=== PATIENT | female | born 2000 | race Caucasian/White ===

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

== ENCOUNTER 2018-03-25 07:18 | Emergency (ER) | payer SELFPAY ==
[2018-03-25] MEDS ORDERED: Diphtheria,Pertussis(Acell),Tetanus Vaccine 0.5 ML Syringe IM ONE (07:44)
[2018-03-25] MEDS ORDERED: Sodium Chloride 0.9% 2.5 ML Syringe FLUSH PRN (07:48)
[2018-03-25] MEDS ORDERED: Sodium Chloride 0.9% 10 ML Syringe FLUSH PRN (07:48)
[2018-03-25] MEDS ORDERED: Ampicillin/Sulbactam Na 3 GM in Sodium Chloride 0.9% 100 ML IV ONE (07:48)
--- NOTE | 2018-03-25 08:52 | EDM.PDOC ---
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: Bite:Animal, Insect Stated Complaint: CAT SCRATCH AND BITE ON RIGHT FOREARM Time Seen by Provider: 03/25/18 07:30 Source of Information: Reports: Patient History Limitations: Reports: No Limitations - History of Present Illness INITIAL COMMENTS - FREE TEXT/NARRATIVE: History of present illness: []Patient was bitten and scratched by her cat last night and awoke with redness and swelling to her right forearm. She denies any fevers or chills and states that her cat is up-to-date with vaccines. Review of systems: As per history of present illness and below otherwise all systems reviewed and negative. Past medical history: As per history of present illness and as reviewed below otherwise noncontributory. Surgical history: As per history of present illness and as reviewed below otherwise noncontributory. Social history: No reported history of drug or alcohol abuse. Family history: As per history of present illness and as reviewed below otherwise noncontributory. Physical exam: General: Well developed, well nourished in NAD HEENT: Atraumatic, normocephalic, pupils reactive, negative for conjunctival pallor or scleral icterus, mucous membranes moist, throat clear, neck supple, nontender, trachea midline. Lungs: Clear to auscultation, breath sounds equal bilaterally, chest nontender. Heart: S1S2, regular, negative for clicks, rubs, or JVD. Abdomen: Soft, nondistended, nontender. Negative for masses or hepatosplenomegaly. Negative for costovertebral tenderness. Pelvis: Stable nontender. Genitourinary: Deferred. Rectal: Deferred. Extremities: Multiple scratches and dorsal part of her distal forearm with erythema of the distal dorsal forearm, negative for cords or calf pain. Neurovascular unremarkable. Neuro: Awake, alert, oriented. Cranial nerves II through XII unremarkable. Cerebellum unremarkable. Motor and sensory unremarkable throughout. Exam nonfocal. Diagnostics: [] Therapeutics: []Unasyn IV Impression: []Cat scratch/bite with cellulitis of the right forearm Plan: []Augmentin twice a day for 10 days Definitive disposition and diagnosis as appropriate pending reevaluation and review of above. Right Hand Pain Score (Numeric/FACES): 6 - Related Data Allergies Allergy/AdvReac Type Severity Reaction Status Date / Time No Known Allergies Allergy Verified 03/25/18 07:27 Home Meds: Home Meds Amoxicillin/Clavulanate K [Augmentin 875-125 MG] 1 tab PO BID #20 tablet [Rx] Vits #93/Iron Fum/FA [ Formula Tablet] 1 each PO DAILY [History] Past Medical History - Past Health History Medical/Surgical History: Denies Medical/Surgical History HEENT History: Reports: None Cardiovascular History: Reports: None Respiratory History: Reports: None Gastrointestinal History: Reports: None Genitourinary History: Reports: None 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: Reports: 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 Musculoskeletal History: Reports: None Neurological History: Reports: None Endocrine/Metabolic History: Reports: None Hematologic History: Reports: None Immunologic History: Reports: None Oncologic (Cancer) History: Reports: None Dermatologic History: Reports: None - Infectious Disease History Infectious Disease History: Reports: None - Past Surgical History Head Surgeries/Procedures: Reports: None HEENT Surgical History: Reports: None Cardiovascular Surgical History: Reports: None Respiratory Surgical History: Reports: None GI Surgical History: Reports: None Female Surgical History: Reports: None Neurological Surgical History: Reports: None Musculoskeletal Surgical History: Reports: None Social & Family History - Family History Family Medical History: Noncontributory - Tobacco Use Smoking Status *Q: Never Smoker Second Hand Smoke Exposure: No - Caffeine Use Caffeine Use: Reports: Other - Recreational Drug Use Recreational Drug Use: No ED ROS GENERAL - Review of Systems Review Of Systems: See Below (See history of present illness) ED EXAM, ANIMAL BITE - Physical Exam Exam: See Below (See history of present illness) Course - Vital Signs Last Recorded V/S: Last Vital Signs Temp 98.1 F 03/25/18 07:28 Pulse 83 03/25/18 07:28 Resp 18 03/25/18 07:28 BP 94/53 L 03/25/18 07:28 Pulse Ox 98 03/25/18 07:28 - Orders/Labs/Meds Orders: Active Orders 24 hr Category Date Time Status Vaccines to be Administered [RC] PER UNIT ROUTINE Care 03/25/18 07:44 Active Sodium Chloride 0.9% [Saline Flush] Med 03/25/18 07:48 Active 10 ml FLUSH ASDIRECTED PRN Sodium Chloride 0.9% [Saline Flush] Med 03/25/18 07:48 Active 2.5 ml FLUSH ASDIRECTED PRN Saline Lock Insert [OM.PC] Stat Oth 03/25/18 07:48 Ordered Medication Orders Sodium Chloride (Saline Flush) 10 ml FLUSH ASDIRECTED PRN PRN Reason: Keep Vein Open Last Admin: 03/25/18 08:02 Dose: 10 ml Sodium Chloride (Saline Flush) 2.5 ml FLUSH ASDIRECTED PRN PRN Reason: Keep Vein Open Last Admin: 03/25/18 08:02 Dose: 2.5 ml Meds: Medications Generic Name Dose Route Start Last Admin Trade Name Freq PRN Reason Stop Dose Admin Sodium Chloride 10 ml 03/25/18 07:48 03/25/18 08:02 Saline Flush FLUSH 10 ml ASDIRECTED PRN Administration Keep Vein Open Sodium Chloride 2.5 ml 03/25/18 07:48 03/25/18 08:02 Saline Flush FLUSH 2.5 ml ASDIRECTED PRN Administration Keep Vein Open Discontinued Medications Generic Name Dose Route Start Last Admin Trade Name Freq PRN Reason Stop Dose Admin Diphtheria/Tetanus/Acell Pertussis 0.5 ml 03/25/18 07:44 03/25/18 07:49 Adacel IM 03/25/18 07:45 0.5 ml .ONCE ONE Administration Ampicillin Sodium/Sulbactam 100 mls @ 200 mls/hr 03/25/18 07:48 03/25/18 08: 01 Sodium 3 gm/ Sodium Chloride IV 03/25/18 08:17 200 mls/hr ONETIME ONE Administration Departure - Departure Time of Disposition: 08:53 Disposition: Home, Self-Care 01 Condition: Good Clinical Impression: Cat bite of forearm Qualifiers: Encounter type: initial encounter Laterality: right Qualified Code(s): S51.851A - Open bite of right forearm, initial encounter; W55.01XA - Bitten by cat, initial encounter - Discharge Information Prescriptions: Amoxicillin/Clavulanate K [Augmentin 875-125 MG] 1 tab PO BID #20 tablet Referrals: PCP,None [Primary Care Provider] - Forms: ED Department Discharge Additional Instructions: The following information is given to patients seen in the emergency department who are being discharged to home. This information is to outline your options for follow-up care. We provide all patients seen in our emergency department with a follow-up referral. The need for follow-up, as well as the timing and circumstances, are variable depending upon the specifics of your emergency department visit. If you don't have a primary care physician on staff, we will provide you with a referral. We always advise you to contact your personal physician following an emergency department visit to inform them of the circumstance of the visit and for follow-up with them and/or the need for any referrals to a consulting specialist. The emergency department will also refer you to a specialist when appropriate. This referral assures that you have the opportunity for follow-up care with a specialist. All of these measure are taken in an effort to provide you with optimal care, which includes your follow-up. Under all circumstances we always encourage you to contact your private physician who remains a resource for coordinating your care. When calling for follow-up care, please make the office aware that this follow-up is from your recent emergency room visit. If for any reason you are refused follow-up, please contact the [facility] Emergency Department at and asked to speak to the emergency department charge nurse. Warm soaks, Augmentin as directed until completion, Tylenol Motrin for pain follow-up with primary care return if any symptoms worsen or change. - My Orders Last 24 Hours: My Active Orders 03/25/18 07:44 Vaccines to be Administered [RC] PER UNIT ROUTINE 03/25/18 07:48 Sodium Chloride 0.9% [Saline Flush] 10 ml FLUSH ASDIRECTED PRN Sodium Chloride 0.9% [Saline Flush] 2.5 ml FLUSH ASDIRECTED PRN Saline Lock Insert [OM.PC] Stat - Assessment/Plan Last 24 Hours: My Active Orders 03/25/18 07:44 Vaccines to be Administered [RC] PER UNIT ROUTINE 03/25/18 07:48 Sodium Chloride 0.9% [Saline Flush] 10 ml FLUSH ASDIRECTED PRN Sodium Chloride 0.9% [Saline Flush] 2.5 ml FLUSH ASDIRECTED PRN Saline Lock Insert [OM.PC] Stat
[2018-03-25 09:03] VITALS: BP 112/76
== END 2018-03-25 09:03 | disposition home or self-care (01) ==
LOC: MW.ED 07:18
DX: S51.851A Open bite of right forearm, initial encounter (principal); L03.113 Cellulitis of right upper limb; Z23 Encounter for immunization; W55.01XA Bitten by cat, initial encounter
CPT/HCPCS: 90471; 90715; 96365; 99283; J0295; J7030

== ENCOUNTER 2018-04-25 08:05 | Emergency (ER) | payer SELFPAY ==
[2018-04-25] MEDS ORDERED: Sodium Chloride 0.9% 1,000 ML IV ONE (08:33)
--- NOTE | 2018-04-25 08:48 | EDM.PDOC ---
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: General Stated Complaint: CUTS ON RT HAND Time Seen by Provider: 04/25/18 08:40 - History of Present Illness INITIAL COMMENTS - FREE TEXT/NARRATIVE: HISTORY AND PHYSICAL: History of present illness: Patient is a 17-year-old female who is approximately 12 weeks who presents status post injury to her right hand this was in the form of a scratches and a bite from her domestic cat that is up-to-date on her immunizations she also had a near syncopal episode subsequent to this she denies abdominal pain vaginal bleeding any other trauma or concern she is up-to- date on her tetanus Review of systems: As per history of present illness and below otherwise all systems reviewed and negative. Past medical history: As per history of present illness and as reviewed below otherwise noncontributory. Surgical history: As per history of present illness and as reviewed below otherwise noncontributory. Social history: No reported history of drug or alcohol abuse. Family history: As per history of present illness and as reviewed below otherwise noncontributory. Physical exam: HEENT: Atraumatic, normocephalic, pupils reactive, negative for conjunctival pallor or scleral icterus, mucous membranes moist, throat clear, neck supple, nontender, trachea midline. Lungs: Clear to auscultation, breath sounds equal bilaterally, chest nontender. Heart: S1S2, regular, negative for clicks, rubs, or JVD. Abdomen: Soft, nondistended, nontender heart tones approximately 150. Negative for masses or hepatosplenomegaly. Negative for costovertebral tenderness. Pelvis: Stable nontender. Genitourinary: Deferred. Rectal: Deferred. Extremities: Multiple scratches noted to be dorsal and volar surface of her hand with what appears to be a puncture in the interdigital space of wanting to see medicine neurovascular exam is unremarkable Neuro: Awake, alert, oriented. Cranial nerves II through XII unremarkable. Cerebellum unremarkable. Motor and sensory unremarkable throughout. Exam nonfocal. Diagnostics: None Therapeutics: Wounds were irrigated and dressed with bacitracin and bulky hand dressing Impression: #1 animal bite right hand (CAD) Definitive disposition and diagnosis as appropriate pending reevaluation and review of above. 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 Musculoskeletal History: Reports: None Neurological History: Reports: None Endocrine/Metabolic History: Reports: None Hematologic History: Reports: None Immunologic History: Reports: None Oncologic (Cancer) History: Reports: None Dermatologic History: Reports: None - Infectious Disease History Infectious Disease History: Reports: None - Past Surgical History Head Surgeries/Procedures: Reports: None HEENT Surgical History: Reports: None Cardiovascular Surgical History: Reports: None Respiratory Surgical History: Reports: None GI Surgical History: Reports: None Female Surgical History: Reports: None Neurological Surgical History: Reports: None Musculoskeletal Surgical History: Reports: None Social & Family History - Family History Family Medical History: Noncontributory - Tobacco Use Smoking Status *Q: Never Smoker - Caffeine Use Caffeine Use: Reports: Other - Recreational Drug Use Recreational Drug Use: No ED ROS GENERAL - Review of Systems Review Of Systems: ROS reveals no pertinent complaints other than HPI. ED EXAM, GENERAL - Physical Exam Exam: See Below (See dictation) Course - Vital Signs Text/Narrative:: Case was discussed with hand surgery who agrees with Augmentin and follow up as needed as discussed with her Last Recorded V/S: Last Vital Signs Temp 36.4 C 04/25/18 08:11 Pulse 79 04/25/18 08:36 Resp 16 04/25/18 08:36 BP 103/62 04/25/18 08:36 Pulse Ox 99 04/25/18 08:36 - Orders/Labs/Meds Orders: Active Orders 24 hr Category Date Time Status EKG 12 Lead [EKG Documentation Completion] [RC] STAT Care 04/25/18 08:19 Active CBC WITH AUTO DIFF [HEME] Stat Lab 04/25/18 08:33 Ordered Sodium Chloride 0.9% [Normal Saline] 1,000 ml Med 04/25/18 08:33 Active IV .Bolus Medication Orders Sodium Chloride (Normal Saline) 1,000 mls @ 999 mls/hr IV .Bolus ONE Stop: 04/25/18 09:33 Meds: Medications Generic Name Dose Route Start Last Admin Trade Name Jonathan BABB Reason Stop Dose Admin Sodium Chloride 1,000 mls @ 999 mls/hr 04/25/18 08:33 Normal Saline IV 04/25/18 09:33 .Bolus ONE Departure - Departure Time of Disposition: 08:48 Disposition: Home, Self-Care 01 Condition: Good Clinical Impression: Animal bite - Discharge Information Referrals: PCP,Unknown [Primary Care Provider] - Additional Instructions: The following information is given to patients seen in the emergency department who are being discharged to home. This information is to outline your options for follow-up care. We provide all patients seen in our emergency department with a follow-up referral. The need for follow-up, as well as the timing and circumstances, are variable depending upon the specifics of your emergency department visit. If you don't have a primary care physician on staff, we will provide you with a referral. We always advise you to contact your personal physician following an emergency department visit to inform them of the circumstance of the visit and for follow-up with them and/or the need for any referrals to a consulting specialist. The emergency department will also refer you to a specialist when appropriate. This referral assures that you have the opportunity for followup care with a specialist. All of these measure are taken in an effort to provide you with optimal care, which includes your followup. Under all circumstances we always encourage you to contact your private physician who remains a resource for coordinating your care. When calling for followup care, please make the office aware that this follow-up is from your recent emergency room visit. If for any reason you are refused follow-up, please contact the [facility] emergency department at and asked to speak to the emergency department charge nurse. [facility] [address] [place] [address] [address] [place], [place] [id number] Augmentin as prescribed push fluids and follow-up private medical doctor as needed as discussed follow-up OB as scheduled follow-up hand surgery about as needed as discussed - My Orders Last 24 Hours: My Active Orders 04/25/18 08:19 EKG 12 Lead [EKG Documentation Completion] [RC] STAT 04/25/18 08:33 CBC WITH AUTO DIFF [HEME] Stat Sodium Chloride 0.9% [Normal Saline] 1,000 ml IV .Bolus - Assessment/Plan Last 24 Hours: My Active Orders 04/25/18 08:19 EKG 12 Lead [EKG Documentation Completion] [RC] STAT 04/25/18 08:33 CBC WITH AUTO DIFF [HEME] Stat Sodium Chloride 0.9% [Normal Saline] 1,000 ml IV .Bolus
[2018-04-25] MEDS ORDERED: Bacitracin Oint 1 GM U/D Packet TOP ONE (09:24)
[2018-04-25 09:36] VITALS: BP 113/65
== END 2018-04-25 09:30 | disposition home or self-care (01) ==
LOC: MW.ED 08:05
DX: O9A.211 Injury, poisoning and certain other consequences of external causes complicating pregnancy, first trimester (principal); S61.451A Open bite of right hand, initial encounter; S60.511A Abrasion of right hand, initial encounter; Z3A.12 12 weeks gestation of pregnancy; W55.01XA Bitten by cat, initial encounter; W55.03XA Scratched by cat, initial encounter
CPT/HCPCS: 36415; 85025; 93005; 96360; 99284; J7040; 99282

== ENCOUNTER 2019-04-22 19:55 | Emergency (ER) | payer SELFPAY ==
--- NOTE | 2019-04-22 20:28 | EDM.PDOC ---
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 Patient states she had a positive test a few weeks ago which was confirmed at the health clinic in [place], [place]. Patient states she had delivered a baby 5 months ago with [facility], however, she is not happy with her care from prior so has switched to Dr. Turner and has an appointment with him in a few weeks. She states she tried to move her appointment with him sooner but was unable to do that from the clinic stand point. Patient states over the past couple days she has had some spotting when she wipes. Patient states is smal amount and she has not had to wear a pad but it is bright red when she wipes and she has had some cramping associated with it. Patient denies any other symptoms at this time. Patient denies fever, chills, chest pain, shortness of breath, or cough. Denies headache, neck stiff ness, change in vision, syncope, or near syncope. Denies nausea, vomiting, diarrhea, constipation, or dysuria. Has not noted any blood in urine or stool. Patient has been eating and drinking appropriately. Review of systems: As per history of present illness and below otherwise all systems reviewed and negative. Past medical history: As per history of present illness and as reviewed below otherwise noncontributory. Surgical history: As per history of present illness and as reviewed below otherwise noncontributory. Social history: See social history for further information Family history: As per history of present illness and as reviewed below otherwise noncontributory. Physical exam: General: Patient is alert, oriented, and in no acute distress. Patient sitting comfortably on exam table. HEENT: Atraumatic, normocephalic, pupils equal and reactive bilaterally, negative for conjunctival pallor or scleral icterus, mucous membranes moist, TMs normal bilaterally, throat clear, neck supple, nontender, trachea midline. No drooling or trismus noted. No meningeal signs. No hot potato voice noted. Lungs: Clear to auscultation, breath sounds equal bilaterally, chest nontender. Heart: S1S2, regular rate and rhythm without overt murmur Abdomen: Soft, nondistended, mild suprapubic tenderness. Negative for masses or hepatosplenomegaly. Negative for costovertebral tenderness. Pelvis: Stable nontender. Genitourinary: Deferred. Rectal: Deferred. Skin: Intact, warm, dry. No lesions or rashes noted. Extremities: Atraumatic, negative for cords or calf pain. Neurovascular unremarkable. Neuro: Awake, alert, oriented. Cranial nerves II through XII unremarkable. Cerebellum unremarkable. Motor and sensory unremarkable throughout. Exam nonfocal. Notes: Call to Dr. Turner to inform him of patients evaluation. Discussed the importance of follow up with OBGYN and for repeat hcg quant. Voices understanding and is agreeable to plan of care. Denies any further questions or concerns at this time. Diagnostics: CBC, CMP, UA, Rh blood type, hCG Quant, urine hCG, transvaginal ultrasound Therapeutics: None Prescription: Keflex Impression: Threatened Trace subchorionic hemorrhage Urinary Tract Infection Plan: 1. Please start and/or continue to take your vitamin with folic acid once daily. 2. Pelvic rest until cleared by your OBGYN (no tampons, sex, etc...) 3. Tylenol as needed for pain management. This is safe to use in . 4. Follow up with your SHOULDER PUNCHER as discussed. Return to the ED as needed and as discussed. Definitive disposition and diagnosis as appropriate pending reevaluation and review of above. suprapubic Pain Score (Numeric/FACES): 3 - Related Data Allergies Allergy/AdvReac Type Severity Reaction Status Date / Time No Known Allergies Allergy Verified 04/22/19 20:13 Home Meds: Home Meds Vits #93/Iron Fum/FA [ Formula Tablet] 1 each PO DAILY [History] Ferrous Sulfate [Ferosul] 325 mg PO DAILY 11/14/18 [History] Past Medical History - Past Health History Medical/Surgical History: Denies Medical/Surgical History HEENT History: Reports: Impaired Vision Cardiovascular History: Reports: None Respiratory History: Reports: None Gastrointestinal History: Reports: None Genitourinary History: Reports: None SHOULDER PUNCHER History: Reports: Musculoskeletal History: Reports: None Neurological History: Reports: None Psychiatric History: Reports: Anxiety, Depression, Suicide Attempt Endocrine/Metabolic History: Reports: None Hematologic History: Reports: None Immunologic History: Reports: None Oncologic (Cancer) History: Reports: None Dermatologic History: Reports: None - Infectious Disease History Infectious Disease History: Reports: None - Past Surgical History Head Surgeries/Procedures: Reports: None Cardiovascular Surgical History: Reports: None Respiratory Surgical History: Reports: None GI Surgical History: Reports: None Female Surgical History: Reports: Other (See Below) Other Female Surgeries/Procedures: Vaginal stitches in childhood after falling on playground equipment. Neurological Surgical History: Reports: None Musculoskeletal Surgical History: Reports: None Social & Family History - Family History Family Medical History: Noncontributory Cardiac: Reports: Other (See Below) Other Cardiac Family History: heart disease Respiratory: Reports: Asthma : Reports: Pyelonephritis, Renal Calculus, UTI, Recurrent OBGYN: Reports: Psychiatric: Reports: ADHD, Anxiety, Depression, Panic Attack, PTSD Endocrine/Metabolic: Reports: Diabetes, type II, Hyperthyroidism Immunologic: Reports: Other (See Below) Other Immunologic Family History: Saracoidus Oncologic: Reports: Cervix, Skin, Other (See Below) Other Oncologic Family History: Throat - Tobacco Use Smoking Status *Q: Never Smoker - Caffeine Use Caffeine Use: Reports: Soda - Recreational Drug Use Recreational Drug Use: No ED ROS GENERAL - Review of Systems Review Of Systems: ROS reveals no pertinent complaints other than HPI. ED EXAM - Physical Exam Exam: See Below (See dictation) Course - Vital Signs Last Recorded V/S: Last Vital Signs Temp 36.6 C 04/22/19 20:05 Pulse 95 04/22/19 20:05 Resp 18 04/22/19 20:05 BP 115/60 04/22/19 20:05 Pulse Ox 95 04/22/19 20:05 - Orders/Labs/Meds Orders: Active Orders 24 hr Category Date Time Status CULTURE URINE [RM] Stat Lab 04/22/19 20:20 Received Labs: Laboratory Tests 04/22/19 04/22/19 04/22/19 Range/Units 20:15 20:15 20:15 WBC 13.42 H (4.0-11.0) K/uL RBC 4.71 (4.30-5.90) M/uL Hgb 13.1 (12.0-16.0) g/dL Hct 39.9 (36.0-46.0) % MCV 84.7 (80.0-98.0) fL MCH 27.8 (27.0-32.0) pg MCHC 32.8 (31.0-37.0) g/dL RDW Std Deviation 40.0 (28.0-62.0) fl RDW Coeff of Shira 13 (11.0-15.0) % Plt Count 323 (150-400) K/uL MPV 10.50 (7.40-12.00) fL Neut % (Auto) 70.7 (48.0-80.0) % Lymph % (Auto) 21.5 (16.0-40.0) % [place] % (Auto) 5.9 (0.0-15.0) % Eos % (Auto) 1.6 (0.0-7.0) % Baso % (Auto) 0.3 (0.0-1.5) % Neut # (Auto) 9.5 H (1.4-5.7) K/uL Lymph # (Auto) 2.9 H (0.6-2.4) K/uL [place] # (Auto) 0.8 (0.0-0.8) K/uL Eos # (Auto) 0.2 (0.0-0.7) K/uL Baso # (Auto) 0.0 (0.0-0.1) K/uL Nucleated RBC % 0.0 /100WBC Nucleated RBCs # 0 K/uL Sodium 139 (136-145) mmol/L Potassium 3.4 L (3.5-5.1) mmol/L Chloride 103 (98-107) mmol/L Carbon Dioxide 24.0 (21.0-32.0) mmol/L BUN 10 (7.0-18.0) mg/dL Creatinine 0.6 (0.6-1.0) mg/dL Est Cr Clr Drug Dosing 123.72 mL/min Estimated GFR (MDRD) > 60.0 ml/min Glucose 103 (74-106) mg/dL Calcium 8.6 (8.5-10.1) mg/dL Total Bilirubin 0.2 (0.2-1.0) mg/dL AST 13 L (15-37) IU/L ALT 19 (14-63) IU/L Alkaline Phosphatase 71 (46-116) U/L Total Protein 7.8 (6.4-8.2) g/dL Albumin 3.8 (3.4-5.0) g/dL Globulin 4.0 (2.6-4.0) g/dL Albumin/Globulin Ratio 0.9 (0.9-1.6) HCG, Quant 05562.0 mIU/mL Urine Color Urine Appearance Urine pH (5.0-8.0) Ur Specific Lincoln (1.001-1.035) Urine Protein (NEGATIVE) mg/dL Urine Glucose (UA) (NEGATIVE) mg/dL Urine Ketones (NEGATIVE) mg/dL Urine Occult Blood (NEGATIVE) Urine Nitrite (NEGATIVE) Urine Bilirubin (NEGATIVE) Urine Urobilinogen (<2.0) EU/dL Ur Leukocyte Esterase (NEGATIVE) Urine RBC (0-2/HPF) Urine WBC (0-5/HPF) Ur Epithelial Cells (NONE-FEW) Amorphous Sediment (NEGATIVE) Urine Bacteria (NEGATIVE) Urine HCG, Qual (NEGATIVE) Blood Type O POSITIVE 04/22/19 04/22/19 Range/Units 20:20 20:20 WBC (4.0-11.0) K/uL RBC (4.30-5.90) M/uL Hgb (12.0-16.0) g/dL Hct (36.0-46.0) % MCV (80.0-98.0) fL MCH (27.0-32.0) pg MCHC (31.0-37.0) g/dL RDW Std Deviation (28.0-62.0) fl RDW Coeff of Shira (11.0-15.0) % Plt Count (150-400) K/uL MPV (7.40-12.00) fL Neut % (Auto) (48.0-80.0) % Lymph % (Auto) (16.0-40.0) % [place] % (Auto) (0.0-15.0) % Eos % (Auto) (0.0-7.0) % Baso % (Auto) (0.0-1.5) % Neut # (Auto) (1.4-5.7) K/uL Lymph # (Auto) (0.6-2.4) K/uL [place] # (Auto) (0.0-0.8) K/uL Eos # (Auto) (0.0-0.7) K/uL Baso # (Auto) (0.0-0.1) K/uL Nucleated RBC % /100WBC Nucleated RBCs # K/uL Sodium (136-145) mmol/L Potassium (3.5-5.1) mmol/L Chloride (98-107) mmol/L Carbon Dioxide (21.0-32.0) mmol/L BUN (7.0-18.0) mg/dL Creatinine (0.6-1.0) mg/dL Est Cr Clr Drug Dosing mL/min Estimated GFR (MDRD) ml/min Glucose (74-106) mg/dL Calcium (8.5-10.1) mg/dL Total Bilirubin (0.2-1.0) mg/dL AST (15-37) IU/L ALT (14-63) IU/L Alkaline Phosphatase (46-116) U/L Total Protein (6.4-8.2) g/dL Albumin (3.4-5.0) g/dL Globulin (2.6-4.0) g/dL Albumin/Globulin Ratio (0.9-1.6) HCG, Quant mIU/mL Urine Color YELLOW Urine Appearance CLOUDY Urine pH 7.0 (5.0-8.0) Ur Specific Lincoln 1.020 (1.001-1.035) Urine Protein NEGATIVE (NEGATIVE) mg/dL Urine Glucose (UA) NEGATIVE (NEGATIVE) mg/dL Urine Ketones NEGATIVE (NEGATIVE) mg/dL Urine Occult Blood LARGE H (NEGATIVE) Urine Nitrite NEGATIVE (NEGATIVE) Urine Bilirubin NEGATIVE (NEGATIVE) Urine Urobilinogen 0.2 (<2.0) EU/dL Ur Leukocyte Esterase SMALL H (NEGATIVE) Urine RBC 5-8 (0-2/HPF) Urine WBC 4-5 (0-5/HPF) Ur Epithelial Cells MANY (NONE-FEW) Amorphous Sediment HEAVY (NEGATIVE) Urine Bacteria 1+ H (NEGATIVE) Urine HCG, Qual POSITIVE (NEGATIVE) Blood Type Departure - Departure Time of Disposition: 21:20 Disposition: Home, Self-Care 01 Clinical Impression: Threatened Subchorionic hemorrhage Qualifiers: Fetus number: single or unspecified fetus Trimester: first trimester Qualified Code(s): O41.8X10 - Other specified disorders of amniotic fluid and membranes, first trimester, not applicable or unspecified; O46.8X1 - Other antepartum hemorrhage, first trimester Urinary tract infection Qualifiers: Urinary tract infection type: acute cystitis Hematuria presence: with hematuria Qualified Code(s): N30.01 - Acute cystitis with hematuria - Discharge Information Referrals: PCP,None [Primary Care Provider] - Forms: ED Department Discharge Additional Instructions: The following information is given to patients seen in the emergency department who are being discharged to home. This information is to outline your options for follow-up care. We provide all patients seen in our emergency department with a follow-up referral. The need for follow-up, as well as the timing and circumstances, are variable depending upon the specifics of your emergency department visit. If you don't have a primary care physician on staff, we will provide you with a referral. We always advise you to contact your personal physician following an emergency department visit to inform them of the circumstance of the visit and for follow-up with them and/or the need for any referrals to a consulting specialist. The emergency department will also refer you to a specialist when appropriate. This referral assures that you have the opportunity for follow-up care with a specialist. All of these measure are taken in an effort to provide you with optimal care, which includes your follow-up. Under all circumstances we always encourage you to contact your private physician who remains a resource for coordinating your care. When calling for follow-up care, please make the office aware that this follow-up is from your recent emergency room visit. If for any reason you are refused follow-up, please contact the [facility] Emergency Department at and asked to speak to the emergency department charge nurse. [facility] Primary Care / OBGYN [facility] [place] [address] [id number] [address] [address] 1. Please start and/or continue to take your vitamin with folic acid once daily. 2. Pelvic rest until cleared by your OBGYN (no tampons, sex, etc...) 3. Tylenol as needed for pain management. This is safe to use in . 4. Follow up with your SHOULDER PUNCHER as discussed. Return to the ED as needed and as discussed. - My Orders Last 24 Hours: My Active Orders 04/22/19 20:20 CULTURE URINE [] Stat - Assessment/Plan Last 24 Hours: My Active Orders 04/22/19 20:20 CULTURE URINE [RM] Stat
[2019-04-22 21:06] LABS: CHLORIDE,CL 103 mmol/L (98-107); SODIUM,NA 139 mmol/L (136-145)
--- NOTE | 2019-04-22 21:13 | US ---
INDICATION: Vaginal spotting TECHNIQUE: Ultrasound OB pelvis transvaginal. Real time christianson scale imaging of the pelvis was performed. COMPARISON: None FINDINGS: Gestational sac: Sonographic imaging demonstrates a single intrauterine gestation with a normal appearance. A trace subchorionic hemorrhage is noted.The amount of fluid within the sac appears appropriate for gestational age. Fetus: No heart motion is demonstrated. The embryo`s crown rump length measurement of 2.2 mm corresponds to a gestational age of 5 weeks, 6 days. There are no gross abnormalities noted within the embryo at this early state of development. There is a normal appearing yolk sac. Placenta: The placenta has not yet developed. Pelvis: The visualized cervix is closed. The visualized myometrium appears normal. The ovaries are of normal size. Arterial blood flow seen in both ovaries. No significant ascites noted. IMPRESSION: 1. By the 2012 Society of Radiologists in Ultrasound consensus panel criteria, there is an early intrauterine of approximately 5 weeks, 6 days in age and is of unknown viability. Followup beta HCG and ultrasound is recommended. 2. A trace subchorionic hemorrhage is noted. Dictated by Jimy Monson MD @ 04/22/2019 9:07:48 PM Dictated by: Jimy Monson MD @ 04/22/2019 21:11:07 (Electronically Signed)
[2019-04-22 21:26] VITALS: BP 107/54
== END 2019-04-22 21:32 | disposition home or self-care (01) ==
LOC: MW.ED 19:55
DX: O23.11 Infections of bladder in pregnancy, first trimester (principal); O20.8 Other hemorrhage in early pregnancy; Z3A.01 Less than 8 weeks gestation of pregnancy
CPT/HCPCS: 36415; 76801; 76801-26; 80053; 81001; 81025; 84702; 85025; 86900; 86901; 87086; 87088; 87186; 99284-25

== ENCOUNTER 2019-04-28 07:59 | Emergency (ER) | payer SELFPAY ==
--- NOTE | 2019-04-28 08:11 | EDM.PDOC ---
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 Problem Stated Complaint: AN BLEEDING Time Seen by Provider: 04/28/19 08:05 - History of Present Illness INITIAL COMMENTS - FREE TEXT/NARRATIVE: HISTORY AND PHYSICAL: History of present illness: Patient's 18-year-old female with approximately 7 weeks been seen on several occasions for related issues including recent vaginal bleeding and was diagnosed as a threatened who now comes in with vaginal bleeding and clotting she is scheduled appointment 1:30 PM there's been no reported dizziness chest pain shortness of breath or other concern Review of systems: As per history of present illness and below otherwise all systems reviewed and negative. Past medical history: As per history of present illness and as reviewed below otherwise noncontributory. Surgical history: As per history of present illness and as reviewed below otherwise noncontributory. Social history: No reported history of drug or alcohol abuse. Family history: As per history of present illness and as reviewed below otherwise noncontributory. Physical exam: HEENT: Atraumatic, normocephalic, pupils reactive, negative for conjunctival pallor or scleral icterus, mucous membranes moist, throat clear, neck supple, nontender, trachea midline. Lungs: Clear to auscultation, breath sounds equal bilaterally, chest nontender. Heart: S1S2, regular, negative for clicks, rubs, or JVD. Abdomen: Soft, nondistended, nontender. Negative for masses or hepatosplenomegaly. Negative for costovertebral tenderness. Pelvis: Stable nontender. Genitourinary: Deferred. Rectal: Deferred. Extremities: Atraumatic, negative for cords or calf pain. Neurovascular unremarkable. Neuro: Awake, alert, oriented. Cranial nerves II through XII unremarkable. Cerebellum unremarkable. Motor and sensory unremarkable throughout. Exam nonfocal. Diagnostics: CBC quantitative beta-hCG Therapeutics: None Impression: #1 threatened miscarriage Definitive disposition and diagnosis as appropriate pending reevaluation and review of above. - Related Data Allergies Allergy/AdvReac Type Severity Reaction Status Date / Time No Known Allergies Allergy Verified 04/28/19 08:16 Home Meds: Home Meds Vits #93/Iron Fum/FA [ Formula Tablet] 1 each PO DAILY [History] Ferrous Sulfate [Ferosul] 325 mg PO DAILY 11/14/18 [History] Past Medical History - Past Health History Medical/Surgical History: Denies Medical/Surgical History HEENT History: Reports: Impaired Vision Cardiovascular History: Reports: None Respiratory History: Reports: None Gastrointestinal History: Reports: None Genitourinary History: Reports: None RESIDENTIAL ADVISOR History: Reports: Musculoskeletal History: Reports: None Neurological History: Reports: None Psychiatric History: Reports: Anxiety, Depression, Suicide Attempt Endocrine/Metabolic History: Reports: None Hematologic History: Reports: None Immunologic History: Reports: None Oncologic (Cancer) History: Reports: None Dermatologic History: Reports: None - Infectious Disease History Infectious Disease History: Reports: None - Past Surgical History Head Surgeries/Procedures: Reports: None Cardiovascular Surgical History: Reports: None Respiratory Surgical History: Reports: None GI Surgical History: Reports: None Female Surgical History: Reports: Other (See Below) Other Female Surgeries/Procedures: Vaginal stitches in childhood after falling on playground equipment. Neurological Surgical History: Reports: None Musculoskeletal Surgical History: Reports: None Social & Family History - Family History Family Medical History: Noncontributory Cardiac: Reports: Other (See Below) Other Cardiac Family History: heart disease Respiratory: Reports: Asthma : Reports: Pyelonephritis, Renal Calculus, UTI, Recurrent OBGYN: Reports: Psychiatric: Reports: ADHD, Anxiety, Depression, Panic Attack, PTSD Endocrine/Metabolic: Reports: Diabetes, type II, Hyperthyroidism Immunologic: Reports: Other (See Below) Other Immunologic Family History: Saracoidus Oncologic: Reports: Cervix, Skin, Other (See Below) Other Oncologic Family History: Throat - Caffeine Use Caffeine Use: Reports: Soda ED ROS GENERAL - Review of Systems Review Of Systems: ROS reveals no pertinent complaints other than HPI. ED EXAM, GENERAL - Physical Exam Exam: See Below (See dictation) Course - Vital Signs Last Recorded V/S: Last Vital Signs Temp 36.1 C 04/28/19 08:14 Pulse 83 04/28/19 08:14 Resp 18 04/28/19 08:14 BP 112/64 04/28/19 08:14 Pulse Ox 97 04/28/19 08:14 - Orders/Labs/Meds Labs: Laboratory Tests 04/28/19 04/28/19 Range/Units 08:16 08:16 WBC 12.80 H (4.0-11.0) K/uL RBC 4.87 (4.30-5.90) M/uL Hgb 13.3 (12.0-16.0) g/dL Hct 41.1 (36.0-46.0) % MCV 84.4 (80.0-98.0) fL MCH 27.3 (27.0-32.0) pg MCHC 32.4 (31.0-37.0) g/dL RDW Std Deviation 40.1 (28.0-62.0) fl RDW Coeff of Shira 13 (11.0-15.0) % Plt Count 286 (150-400) K/uL MPV 10.70 (7.40-12.00) fL Neut % (Auto) 76.1 (48.0-80.0) % Lymph % (Auto) 17.7 (16.0-40.0) % [place] % (Auto) 4.2 (0.0-15.0) % Eos % (Auto) 1.6 (0.0-7.0) % Baso % (Auto) 0.4 (0.0-1.5) % Neut # (Auto) 9.7 H (1.4-5.7) K/uL Lymph # (Auto) 2.3 (0.6-2.4) K/uL [place] # (Auto) 0.5 (0.0-0.8) K/uL Eos # (Auto) 0.2 (0.0-0.7) K/uL Baso # (Auto) 0.1 (0.0-0.1) K/uL Nucleated RBC % 0.0 /100WBC Nucleated RBCs # 0 K/uL HCG, Quant 55675.0 mIU/mL Departure - Departure Time of Disposition: 09:33 Disposition: Home, Self-Care 01 Condition: Good Clinical Impression: Threatened - Discharge Information Referrals: PCP,None [Primary Care Provider] - Forms: ED Department Discharge Additional Instructions: The following information is given to patients seen in the emergency department who are being discharged to home. This information is to outline your options for follow-up care. We provide all patients seen in our emergency department with a follow-up referral. The need for follow-up, as well as the timing and circumstances, are variable depending upon the specifics of your emergency department visit. If you don't have a primary care physician on staff, we will provide you with a referral. We always advise you to contact your personal physician following an emergency department visit to inform them of the circumstance of the visit and for follow-up with them and/or the need for any referrals to a consulting specialist. The emergency department will also refer you to a specialist when appropriate. This referral assures that you have the opportunity for followup care with a specialist. All of these measure are taken in an effort to provide you with optimal care, which includes your followup. Under all circumstances we always encourage you to contact your private physician who remains a resource for coordinating your care. When calling for followup care, please make the office aware that this follow-up is from your recent emergency room visit. If for any reason you are refused follow-up, please contact the [facility] emergency department at and asked to speak to the emergency department charge nurse. Keep scheduled appointment today with RESIDENTIAL ADVISOR vaginal rest as discussed return as needed as discussed
[2019-04-28 09:58] VITALS: BP 114/67
== END 2019-04-28 09:58 | disposition home or self-care (01) ==
LOC: MW.ED 07:59
DX: O20.0 Threatened abortion (principal); Z3A.01 Less than 8 weeks gestation of pregnancy
CPT/HCPCS: 36415; 84702; 85025; 99284

== ENCOUNTER 2019-10-07 12:12 | Emergency (ER) | payer SELFPAY ==
[2019-10-07] MEDS ORDERED: Sodium Chloride 0.9% 1,000 ML IV ONE (12:46)
[2019-10-07] MEDS ORDERED: Ondansetron 4 MG/2 ML SDV IVPUSH ONE (12:49)
[2019-10-07] MEDS ORDERED: Acetaminophen 500 MG Tab PO ONE (12:51)
--- NOTE | 2019-10-07 13:19 | EDM.PDOC ---
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: Headache Stated Complaint: MIGRAINE Time Seen by Provider: 10/07/19 12:13 Source of Information: Reports: Patient History Limitations: Reports: No Limitations - History of Present Illness INITIAL COMMENTS - FREE TEXT/NARRATIVE: HISTORY AND PHYSICAL: History of present illness: Patient is a 18-year-old female, who is approximately 11 weeks in gestation, who presents to the ED today with concern of headache since yesterday. Patient states she took one dose of Excedrin yesterday with mild relief of symptoms. Patient states she has not taken anything today for her symptoms. Patient does express photophobia and nausea associated with the headache. Patient states she has had headaches in the past and the only difference that she feels more nauseous with this headache. Patient states she does follow along with Dr. Turner for her AUDIT CONTROL CLERK care. Patient states she has an appointment in 6 days with him. Patient denies any lower abdominal cramping or any vaginal bleeding. Patient denies any other symptoms or concerns. Patient denies any health history. Patient denies fever, chills, chest pain, shortness of breath, or cough. Denies neck stiff ness, change in vision, syncope, or near syncope. Denies nausea, vomiting, abdominal pain, diarrhea, constipation, or dysuria. Has not noted any blood in urine or stool. Patient has been eating and drinking appropriately. Review of systems: As per history of present illness and below otherwise all systems reviewed and negative. Past medical history: As per history of present illness and as reviewed below otherwise noncontributory. Surgical history: As per history of present illness and as reviewed below otherwise noncontributory. Social history: See social history for further information Family history: As per history of present illness and as reviewed below otherwise noncontributory. Physical exam: General: Patient is alert, oriented, and in no acute distress. Patient sitting comfortably on exam table. HEENT: Atraumatic, normocephalic, pupils equal and reactive bilaterally, negative for conjunctival pallor or scleral icterus, mucous membranes moist, TMs normal bilaterally, throat clear, neck supple, nontender, trachea midline. No drooling or trismus noted. No meningeal signs. No hot potato voice noted. Lungs: Clear to auscultation, breath sounds equal bilaterally, chest nontender. Heart: S1S2, regular rate and rhythm without overt murmur Abdomen: Soft, nondistended, nontender. Negative for masses or hepatosplenomegaly. Negative for costovertebral tenderness. Pelvis: Stable nontender. Genitourinary: Deferred. Rectal: Deferred. Skin: Intact, warm, dry. No lesions or rashes noted. Extremities: Atraumatic, negative for cords or calf pain. Neurovascular unremarkable. Neuro: Awake, alert, oriented. Cranial nerves II through XII unremarkable. Cerebellum unremarkable. Motor and sensory unremarkable throughout. Exam nonfocal. Notes: Patient expresses improvement of headache today with therapeutics but not completely resolved. Did offer additional medications but patient declines at this time. Discussed the importance for follow-up with her primary care provider and OB/ LA[employer] provider. Voices understanding and is agreeable to plan of care. Denies any further questions or concerns at this time. Diagnostics: CBC, CMP, UA, [employer]: NS, Zofran, Tylenol Prescription: Macrobid Impression: Headache, improved Urinary Tract Infection Plan: 1. Take medication as prescribed. You can also use Tylenol as directed for pain and discomfort. 2. Encourage small but frequent sips of fluid to prevent dehydration. 3. Follow up with your primary care provider and AUDIT CONTROL CLERK provider as scheduled and as discussed. Return to the ED as needed and as discussed. Definitive disposition and diagnosis as appropriate pending reevaluation and review of above. Headache Pain Score (Numeric/FACES): 7 - Related Data Allergies Allergy/AdvReac Type Severity Reaction Status Date / Time No Known Allergies Allergy Verified 10/07/19 12:27 Home Meds: Home Meds Vits #93/Iron Fum/FA [ Formula Tablet] 1 each PO DAILY [History] Ferrous Sulfate [Ferosul] 325 mg PO DAILY 11/14/18 [History] Nitrofurantoin Monohyd/M-Cryst [Macrobid 100 mg Capsule] 100 mg PO BID 5 Days # 10 capsule 10/07/19 [Rx] Past Medical History - Past Health History Medical/Surgical History: Denies Medical/Surgical History HEENT History: Reports: Impaired Vision Cardiovascular History: Reports: None Respiratory History: Reports: None Gastrointestinal History: Reports: None Genitourinary History: Reports: None AUDIT CONTROL CLERK History: Reports: Musculoskeletal History: Reports: None Neurological History: Reports: None Psychiatric History: Reports: Anxiety, Depression, Suicide Attempt Endocrine/Metabolic History: Reports: None Hematologic History: Reports: None Immunologic History: Reports: None Oncologic (Cancer) History: Reports: None Dermatologic History: Reports: None - Infectious Disease History Infectious Disease History: Reports: Mononucleosis - Past Surgical History Head Surgeries/Procedures: Reports: None Cardiovascular Surgical History: Reports: None Respiratory Surgical History: Reports: None GI Surgical History: Reports: None Female Surgical History: Reports: Other (See Below) Other Female Surgeries/Procedures: Vaginal stitches in childhood after falling on playground equipment. Neurological Surgical History: Reports: None Musculoskeletal Surgical History: Reports: None Social & Family History - Family History Family Medical History: Noncontributory Cardiac: Reports: Other (See Below) Other Cardiac Family History: heart disease Respiratory: Reports: Asthma : Reports: Pyelonephritis, Renal Calculus, UTI, Recurrent OBGYN: Reports: Psychiatric: Reports: ADHD, Anxiety, Depression, Panic Attack, PTSD Endocrine/Metabolic: Reports: Diabetes, type II, Hyperthyroidism Immunologic: Reports: Other (See Below) Other Immunologic Family History: Saracoidus Oncologic: Reports: Cervix, Skin, Other (See Below) Other Oncologic Family History: Throat - Tobacco Use Smoking Status *Q: Former Smoker Used Tobacco, but Quit: Yes Month/Year Tobacco Last Used: 2018 - Caffeine Use Caffeine Use: Reports: Soda - Recreational Drug Use Recreational Drug Use: No ED ROS GENERAL - Review of Systems Review Of Systems: Comprehensive ROS is negative, except as noted in HPI. ED EXAM, GENERAL - Physical Exam Exam: See Below (see dictation) Course - Vital Signs Last Recorded V/S: Last Vital Signs Temp 97.3 F 10/07/19 12:25 Pulse 78 10/07/19 12:25 Resp 16 10/07/19 12:25 BP 111/62 10/07/19 12:25 Pulse Ox 97 10/07/19 12:25 - Orders/Labs/Meds Orders: Active Orders 24 hr Category Date Time Status CULTURE URINE [RM] Stat Lab 10/07/19 13:30 Received Labs: Laboratory Tests 10/07/19 10/07/19 10/07/19 Range/Units 12:50 12:50 13:30 WBC 9.08 (4.0-11.0) K/uL RBC 4.97 (4.30-5.90) M/uL Hgb 13.8 (12.0-16.0) g/dL Hct 40.5 (36.0-46.0) % MCV 81.5 (80.0-98.0) fL MCH 27.8 (27.0-32.0) pg MCHC 34.1 (31.0-37.0) g/dL RDW Std Deviation 43.3 (28.0-62.0) fl RDW Coeff of Shira 15 (11.0-15.0) % Plt Count 250 (150-400) K/uL MPV 10.80 (7.40-12.00) fL Neut % (Auto) 78.4 (48.0-80.0) % Lymph % (Auto) 13.9 L (16.0-40.0) % [place] % (Auto) 6.6 (0.0-15.0) % Eos % (Auto) 0.9 (0.0-7.0) % Baso % (Auto) 0.2 (0.0-1.5) % Neut # (Auto) 7.1 H (1.4-5.7) K/uL Lymph # (Auto) 1.3 (0.6-2.4) K/uL [place] # (Auto) 0.6 (0.0-0.8) K/uL Eos # (Auto) 0.1 (0.0-0.7) K/uL Baso # (Auto) 0.0 (0.0-0.1) K/uL Nucleated RBC % 0.0 /100WBC Nucleated RBCs # 0 K/uL Sodium 136 (136-145) mmol/L Potassium 3.6 (3.5-5.1) mmol/L Chloride 102 (98-107) mmol/L Carbon Dioxide 23.0 (21.0-32.0) mmol/L BUN 6 L (7.0-18.0) mg/dL Creatinine 0.5 L (0.6-1.0) mg/dL Est Cr Clr Drug Dosing TNP Estimated GFR (MDRD) > 60.0 ml/min Glucose 79 (74-106) mg/dL Calcium 8.7 (8.5-10.1) mg/dL Total Bilirubin 0.3 (0.2-1.0) mg/dL AST 17 (15-37) IU/L ALT 15 (14-63) IU/L Alkaline Phosphatase 69 (46-116) U/L Total Protein 8.0 (6.4-8.2) g/dL Albumin 3.4 (3.4-5.0) g/dL Globulin 4.6 H (2.6-4.0) g/dL Albumin/Globulin Ratio 0.7 L (0.9-1.6) Urine Color YELLOW Urine Appearance SLT CLOUDY Urine pH 7.0 (5.0-8.0) Ur Specific [place] 1.015 (1.001-1.035) Urine Protein NEGATIVE (NEGATIVE) mg/dL Urine Glucose (UA) NEGATIVE (NEGATIVE) mg/dL Urine Ketones 40 H (NEGATIVE) mg/dL Urine Occult Blood NEGATIVE (NEGATIVE) Urine Nitrite POSITIVE H (NEGATIVE) Urine Bilirubin NEGATIVE (NEGATIVE) Urine Urobilinogen 1.0 (<2.0) EU/dL Ur Leukocyte Esterase TRACE H (NEGATIVE) Urine RBC 0-1 (0-2/HPF) Urine WBC 5-7 (0-5/HPF) Ur Epithelial Cells FEW (NONE-FEW) Amorphous Sediment LIGHT (NEGATIVE) Urine Bacteria 4+ H (NEGATIVE) Urine Mucus LIGHT (NONE-MOD) Urine HCG, Qual (NEGATIVE) 10/07/19 Range/Units 13:30 WBC (4.0-11.0) K/uL RBC (4.30-5.90) M/uL Hgb (12.0-16.0) g/dL Hct (36.0-46.0) % MCV (80.0-98.0) fL MCH (27.0-32.0) pg MCHC (31.0-37.0) g/dL RDW Std Deviation (28.0-62.0) fl RDW Coeff of Shira (11.0-15.0) % Plt Count (150-400) K/uL MPV (7.40-12.00) fL Neut % (Auto) (48.0-80.0) % Lymph % (Auto) (16.0-40.0) % [place] % (Auto) (0.0-15.0) % Eos % (Auto) (0.0-7.0) % Baso % (Auto) (0.0-1.5) % Neut # (Auto) (1.4-5.7) K/uL Lymph # (Auto) (0.6-2.4) K/uL [place] # (Auto) (0.0-0.8) K/uL Eos # (Auto) (0.0-0.7) K/uL Baso # (Auto) (0.0-0.1) K/uL Nucleated RBC % /100WBC Nucleated RBCs # K/uL Sodium (136-145) mmol/L Potassium (3.5-5.1) mmol/L Chloride (98-107) mmol/L Carbon Dioxide (21.0-32.0) mmol/L BUN (7.0-18.0) mg/dL Creatinine (0.6-1.0) mg/dL Est Cr Clr Drug Dosing Estimated GFR (MDRD) ml/min Glucose (74-106) mg/dL Calcium (8.5-10.1) mg/dL Total Bilirubin (0.2-1.0) mg/dL AST (15-37) IU/L ALT (14-63) IU/L Alkaline Phosphatase (46-116) U/L Total Protein (6.4-8.2) g/dL Albumin (3.4-5.0) g/dL Globulin (2.6-4.0) g/dL Albumin/Globulin Ratio (0.9-1.6) Urine Color Urine Appearance Urine pH (5.0-8.0) Ur Specific [place] (1.001-1.035) Urine Protein (NEGATIVE) mg/dL Urine Glucose (UA) (NEGATIVE) mg/dL Urine Ketones (NEGATIVE) mg/dL Urine Occult Blood (NEGATIVE) Urine Nitrite (NEGATIVE) Urine Bilirubin (NEGATIVE) Urine Urobilinogen (<2.0) EU/dL Ur Leukocyte Esterase (NEGATIVE) Urine RBC (0-2/HPF) Urine WBC (0-5/HPF) Ur Epithelial Cells (NONE-FEW) Amorphous Sediment (NEGATIVE) Urine Bacteria (NEGATIVE) Urine Mucus (NONE-MOD) Urine HCG, Qual POSITIVE (NEGATIVE) Meds: Medications Discontinued Medications Generic Name Dose Route Start Last Admin Trade Name Freq PRN Reason Stop Dose Admin Acetaminophen 1,000 mg 10/07/19 12:51 10/07/19 12:57 Tylenol Extra Strength PO 10/07/19 12:52 1,000 mg ONETIME ONE Administration Sodium Chloride 1,000 mls @ 999 mls/hr 10/07/19 12:46 10/07/19 12:58 Normal Saline IV 10/07/19 13:46 999 mls/hr STAT ONE Administration Ondansetron HCl 4 mg 10/07/19 12:49 10/07/19 12:58 Zofran IVPUSH 10/07/19 12:50 4 mg ONETIME ONE Administration Departure - Departure Time of Disposition: 14:09 Disposition: Home, Self-Care 01 Clinical Impression: Headache Qualifiers: Headache type: unspecified Headache chronicity pattern: acute headache Intractability: not intractable Qualified Code(s): R51 - Headache Urinary tract infection Qualifiers: Urinary tract infection type: acute cystitis Hematuria presence: with hematuria Qualified Code(s): N30.01 - Acute cystitis with hematuria - Discharge Information Prescriptions: Nitrofurantoin Monohyd/M-Cryst [Macrobid 100 mg Capsule] 100 mg PO BID 5 Days # 10 capsule Referrals: PCP,None [Primary Care Provider] - Forms: ED Department Discharge Additional Instructions: The following information is given to patients seen in the emergency department who are being discharged to home. This information is to outline your options for follow-up care. We provide all patients seen in our emergency department with a follow-up referral. The need for follow-up, as well as the timing and circumstances, are variable depending upon the specifics of your emergency department visit. If you don't have a primary care physician on staff, we will provide you with a referral. We always advise you to contact your personal physician following an emergency department visit to inform them of the circumstance of the visit and for follow-up with them and/or the need for any referrals to a consulting specialist. The emergency department will also refer you to a specialist when appropriate. This referral assures that you have the opportunity for follow-up care with a specialist. All of these measure are taken in an effort to provide you with optimal care, which includes your follow-up. Under all circumstances we always encourage you to contact your private physician who remains a resource for coordinating your care. When calling for follow-up care, please make the office aware that this follow-up is from your recent emergency room visit. If for any reason you are refused follow-up, please contact the [facility] Emergency Department at and asked to speak to the emergency department charge nurse. [facility] [address] [place] [address] [facility] [address] [place] [id number] 1. Take medication as prescribed. You can also use Tylenol as directed for pain and discomfort. 2. Encourage small but frequent sips of fluid to prevent dehydration. 3. Follow up with your primary care provider and AUDIT CONTROL CLERK provider as scheduled and as discussed. Return to the ED as needed and as discussed. - My Orders Last 24 Hours: My Active Orders 10/07/19 13:30 CULTURE URINE [RM] Stat - Assessment/Plan Last 24 Hours: My Active Orders 10/07/19 13:30 CULTURE URINE [RM] Stat
[2019-10-07 13:22] LABS: BLOOD UREA NITROGEN,BUN 6 mg/dL (7.0-18.0); CHLORIDE,CL 102 mmol/L (98-107); GLUCOSE RANDOM 79 mg/dL (74-106); POTASSIUM,K 3.6 mmol/L (3.5-5.1); SODIUM,NA 136 mmol/L (136-145)
[2019-10-07 14:19] VITALS: BP 98/59; PULSE 71
== END 2019-10-07 14:19 | disposition home or self-care (01) ==
LOC: MW.ED 12:12
DX: O99.89 Other specified diseases and conditions complicating pregnancy, childbirth and the puerperium (principal); R51 Headache; O23.11 Infections of bladder in pregnancy, first trimester; Z87.891 Personal history of nicotine dependence; Z3A.11 11 weeks gestation of pregnancy
CPT/HCPCS: 36415; 80053; 81001; 81025; 85025; 87086; 96361; 96374; 99284; A9270; J2405; J7040; 87088; 87186

== ENCOUNTER 2019-10-30 02:23 | Observation (INO) | payer MEDICAID ==
[2019-10-30] MEDS ORDERED: Morphine 2 MG/ML Syringe IVPUSH ONE ×2 (02:43→04:21)
[2019-10-30] MEDS ORDERED: Sodium Chloride 0.9% 2.5 ML Syringe FLUSH PRN (02:43)
[2019-10-30] MEDS ORDERED: Sodium Chloride 0.9% 10 ML Syringe FLUSH PRN (02:43)
[2019-10-30] MEDS ORDERED: Sodium Chloride 0.9% 1,000 ML IV ONE ×2 (02:43→03:49)
[2019-10-30] MEDS ORDERED: Ondansetron 4 MG/2 ML SDV IVPUSH ONE (02:43)
--- NOTE | 2019-10-30 02:48 | EDM.PDOC ---
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 Turner for this and presents with right upper quadrant pain that started approximately 7 PM associated with nausea and one episode of vomiting at 10 PM. The patient says she had a normal day With no systemic issues such as upper respiratory symptoms fever chills abdominal pain flank pain urinary issues vomiting or diarrhea and ate tomato soup and grilled cheese for dinner and then proceeded to start having right upper quadrant pain that she says is radiating to her back and her right lower quadrant associated with the one episode of vomiting and persistent nausea. She did not have any Tylenol at home to take for pain so she did not take any medications and she has not had anything to eat or drink since the episode of vomiting at 10 PM. She has no dysuria or frequency and has not had any big significant issues with this so far. She tried using a heating pad as she thought that maybe it was stretching pain due to the stage she has had in her but the pain was more localized in the right upper quadrant than the right lower quadrant. She currently says the pain is intense and deep and it does not move to the left side at all and she did not have a bowel movement yet today but has been having normal bowel movements. The patient has not had any vaginal bleeding and she says she thinks that she may have started feeling the baby move but it is not been significant as of yet. Review of systems: As per history of present illness and below otherwise all systems reviewed and negative. Past medical history: As per history of present illness and as reviewed below otherwise noncontributory. Surgical history: As per history of present illness and as reviewed below otherwise noncontributory. Social history: No reported history of drug or alcohol abuse. Family history: As per history of present illness and as reviewed below otherwise noncontributory. Physical exam: General: Well-developed well-nourished female who is nontoxic and vital signs are noted by me she moves easily in the ED without distress HEENT: Atraumatic, normocephalic, pupils reactive, negative for conjunctival pallor or scleral icterus, mucous membranes moist, throat clear, neck supple, nontender, trachea midline. Lungs: Clear to auscultation, breath sounds equal bilaterally, chest nontender. Heart: S1S2, regular, rate and rhythm no overt murmurs Abdomen: Soft, nondistended, mild tenderness to deep palpation in the right upper quadrant with no right lower quadrant tenderness and no left-sided abdominal pain and bowel sounds are hypoactive. There is no tympany on percussion. Negative for masses or hepatosplenomegaly. Negative for costovertebral tenderness. Pelvis: Stable nontender. Genitourinary: Deferred. Rectal: Deferred. Extremities: Atraumatic, negative for cords or calf pain. Neurovascular unremarkable. Neuro: Awake, alert, oriented. Cranial nerves II through XII unremarkable. Cerebellum unremarkable. Motor and sensory unremarkable throughout. Exam nonfocal. Diagnostics: heart tones CBC CMP amylase lipase UA with reflex US RUQ and kidney repeat CBC Therapeutics: IV fluids Zofran morphine 0412: I reevaluated the patient and she says she is feeling better with no more nausea or vomiting and she is still having some discomfort in the right upper quadrant but not really in the right lower quadrant she says she just feels a pressure there. She again indicates the right upper quadrant as the site of her discomfort. She is aware of the elevated WBC count but she is also aware that the ultrasound did not show any gallbladder liver pancreas or kidney abnormalities. I discussed this case with Dr. Chang our surgeon on-call as I do not have a current explanation for the WBC count. He suggest that as she is finishing her second liter of fluid that we repeat the CBC with differential and if it is falling that she potentially can be followed as an outpatient and that it may be secondary to dehydration and her vomiting. He agrees that the history does support a gallbladder source but percent is negative. Her presentation and her clinical picture does not support a classic appendicitis but we did discuss the potential of working that up and he says that the patient being at 15 weeks can have an abdominal CAT scan. We decided that we would repeat the WBC count and if it is still holding then I will call Dr. Turner to discuss CT scan or admission for observation and bowel rest and further trending of her CBC. Said that he would be happy to be on consult if Dr. Post opted to admit this patient 0440: Case was discussed with Dr. Turner and he is aware that the WBC count did drop a little bit but not significantly with the 2 L of fluid. We discussed observation admission versus CT scan and he agrees with observation admission with IV fluids and reevaluation in the morning by him and consult by Dr. Chang and discussion pending that reevaluation for imaging and further care as indicated. The patient is aware of these conversation and is agreeable. Impression: Right upper quadrant pain, second trimester Definitive disposition and diagnosis as appropriate pending reevaluation and review of above. Abdomen Pain Score (Numeric/FACES): 10 - Related Data Allergies Allergy/AdvReac Type Severity Reaction Status Date / Time No Known Allergies Allergy Verified 10/30/19 02:32 Home Meds: Home Meds Vits #93/Iron Fum/FA [ Formula Tablet] 1 each PO DAILY [History] buPROPion [Wellbutrin SR] 100 mg PO DAILY 10/30/19 [History] Past Medical History - Past Health History Medical/Surgical History: Denies Medical/Surgical History HEENT History: Reports: Impaired Vision Cardiovascular History: Reports: None Respiratory History: Reports: None Gastrointestinal History: Reports: None Genitourinary History: Reports: None 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: Musculoskeletal History: Reports: None Neurological History: Reports: None Psychiatric History: Reports: Anxiety, Depression, Suicide Attempt Endocrine/Metabolic History: Reports: None Insulin Pump Model and Almond Huller: None Hematologic History: Reports: None Immunologic History: Reports: None Oncologic (Cancer) History: Reports: None Dermatologic History: Reports: None - Infectious Disease History Infectious Disease History: Reports: None - Past Surgical History Head Surgeries/Procedures: Reports: None Cardiovascular Surgical History: Reports: None Respiratory Surgical History: Reports: None GI Surgical History: Reports: None Female Surgical History: Reports: Other (See Below) Other Female Surgeries/Procedures: Vaginal stitches in childhood after falling on playground equipment. Neurological Surgical History: Reports: None Musculoskeletal Surgical History: Reports: None Social & Family History - Family History Family Medical History: Noncontributory Cardiac: Reports: Other (See Below) Other Cardiac Family History: heart disease Respiratory: Reports: Asthma : Reports: Pyelonephritis, Renal Calculus, UTI, Recurrent OBGYN: Reports: Psychiatric: Reports: ADHD, Anxiety, Depression, Panic Attack, PTSD Endocrine/Metabolic: Reports: Diabetes, type II, Hyperthyroidism Immunologic: Reports: Other (See Below) Other Immunologic Family History: Saracoidus Oncologic: Reports: Cervix, Skin, Other (See Below) Other Oncologic Family History: Throat - Tobacco Use Smoking Status *Q: Never Smoker - Caffeine Use Caffeine Use: Reports: Coffee, Soda - Recreational Drug Use Recreational Drug Use: No ED ROS GENERAL - Review of Systems Review Of Systems: Comprehensive ROS is negative, except as noted in HPI. ED EXAM, GENERAL - Physical Exam Exam: See Below (See dictation) Course - Vital Signs Last Recorded V/S: Last Vital Signs Temp 36.1 C 10/30/19 04:23 Pulse 82 10/30/19 04:23 Resp 18 10/30/19 04:23 BP 113/68 10/30/19 04:23 Pulse Ox 100 10/30/19 04:23 - Orders/Labs/Meds Orders: Active Orders 24 hr Category Date Time Status Patient Status [ADT] Stat ADT 10/30/19 04:41 Ordered Communication Order [RC] STAT Care 10/30/19 02:43 Active Notify Provider Consults [RC] ASDIRECTED Care 10/30/19 04:41 Ordered Consult to Physician [CONS] Stat Cons 10/30/19 04:41 Ordered Sodium Chloride 0.9% @ 125 MLS/HR (1,000ml) Med 10/30/19 04:45 Ordered Sodium Chloride 0.9% [Normal Saline] 1,000 ml IV ASDIRECTED Sodium Chloride 0.9% [Normal Saline] 1,000 ml Med 10/30/19 03:49 Active IV STAT Sodium Chloride 0.9% [Saline Flush] Med 10/30/19 02:43 Active 10 ml FLUSH ASDIRECTED PRN Sodium Chloride 0.9% [Saline Flush] Med 10/30/19 02:43 Active 2.5 ml FLUSH ASDIRECTED PRN Saline Lock Insert [OM.PC] Stat Oth 10/30/19 02:42 Ordered Medication Orders Sodium Chloride (Normal Saline) 1,000 mls @ 999 mls/hr IV STAT ONE Stop: 10/30/19 04:49 Last Admin: 10/30/19 03:50 Dose: 999 mls/hr Sodium Chloride (Normal Saline) 1,000 mls @ 125 mls/hr IV ASDIRECTED PARTHA Sodium Chloride (Saline Flush) 10 ml FLUSH ASDIRECTED PRN PRN Reason: Keep Vein Open Sodium Chloride (Saline Flush) 2.5 ml FLUSH ASDIRECTED PRN PRN Reason: Keep Vein Open Labs: Laboratory Tests 10/30/19 10/30/19 10/30/19 Range/Units 02:35 02:45 02:45 WBC 15.96 H (4.0-11.0) K/uL RBC 5.03 (4.30-5.90) M/uL Hgb 14.0 (12.0-16.0) g/dL Hct 40.1 (36.0-46.0) % MCV 79.7 L (80.0-98.0) fL MCH 27.8 (27.0-32.0) pg MCHC 34.9 (31.0-37.0) g/dL RDW Std Deviation 40.0 (28.0-62.0) fl RDW Coeff of Shira 14 (11.0-15.0) % Plt Count 248 (150-400) K/uL MPV 10.70 (7.40-12.00) fL Neut % (Auto) 84.4 H (48.0-80.0) % Lymph % (Auto) 11.2 L (16.0-40.0) % [place] % (Auto) 3.8 (0.0-15.0) % Eos % (Auto) 0.4 (0.0-7.0) % Baso % (Auto) 0.2 (0.0-1.5) % Neut # (Auto) 13.5 H (1.4-5.7) K/uL Lymph # (Auto) 1.8 (0.6-2.4) K/uL [place] # (Auto) 0.6 (0.0-0.8) K/uL Eos # (Auto) 0.1 (0.0-0.7) K/uL Baso # (Auto) 0.0 (0.0-0.1) K/uL Sodium 137 (136-145) mmol/L Potassium 3.4 L (3.5-5.1) mmol/L Chloride 103 (98-107) mmol/L Carbon Dioxide 23.1 (21.0-32.0) mmol/L BUN 6 L (7.0-18.0) mg/dL Creatinine 0.5 L (0.6-1.0) mg/dL Est Cr Clr Drug Dosing 148.47 mL/min Estimated GFR (MDRD) > 60.0 ml/min Glucose 97 (74-106) mg/dL Calcium 8.7 (8.5-10.1) mg/dL Total Bilirubin 0.2 (0.2-1.0) mg/dL AST 11 L (15-37) IU/L ALT 18 (14-63) IU/L Alkaline Phosphatase 70 (46-116) U/L Total Protein 7.8 (6.4-8.2) g/dL Albumin 3.2 L (3.4-5.0) g/dL Globulin 4.6 H (2.6-4.0) g/dL Albumin/Globulin Ratio 0.7 L (0.9-1.6) Amylase 55 (25-115) U/L Lipase 115 (73-393) U/L Urine Color YELLOW Urine Appearance CLEAR Urine pH 6.0 (5.0-8.0) Ur Specific [place] 1.025 (1.001-1.035) Urine Protein NEGATIVE (NEGATIVE) mg/dL Urine Glucose (UA) NEGATIVE (NEGATIVE) mg/dL Urine Ketones 40 H (NEGATIVE) mg/dL Urine Occult Blood NEGATIVE (NEGATIVE) Urine Nitrite NEGATIVE (NEGATIVE) Urine Bilirubin NEGATIVE (NEGATIVE) Urine Urobilinogen 0.2 (<2.0) EU/dL Ur Leukocyte Esterase NEGATIVE (NEGATIVE) 10/30/19 Range/Units 04:29 WBC 14.92 H (4.0-11.0) K/uL RBC 4.38 (4.30-5.90) M/uL Hgb 12.2 (12.0-16.0) g/dL Hct 35.8 L (36.0-46.0) % MCV 81.7 (80.0-98.0) fL MCH 27.9 (27.0-32.0) pg MCHC 34.1 (31.0-37.0) g/dL RDW Std Deviation 40.9 (28.0-62.0) fl RDW Coeff of Shira 14 (11.0-15.0) % Plt Count 222 (150-400) K/uL MPV 10.50 (7.40-12.00) fL Neut % (Auto) 86.2 H (48.0-80.0) % Lymph % (Auto) 8.8 L (16.0-40.0) % [place] % (Auto) 4.5 (0.0-15.0) % Eos % (Auto) 0.3 (0.0-7.0) % Baso % (Auto) 0.2 (0.0-1.5) % Neut # (Auto) 12.9 H (1.4-5.7) K/uL Lymph # (Auto) 1.3 (0.6-2.4) K/uL [place] # (Auto) 0.7 (0.0-0.8) K/uL Eos # (Auto) 0.0 (0.0-0.7) K/uL Baso # (Auto) 0.0 (0.0-0.1) K/uL Sodium (136-145) mmol/L Potassium (3.5-5.1) mmol/L Chloride (98-107) mmol/L Carbon Dioxide (21.0-32.0) mmol/L BUN (7.0-18.0) mg/dL Creatinine (0.6-1.0) mg/dL Est Cr Clr Drug Dosing mL/min Estimated GFR (MDRD) ml/min Glucose (74-106) mg/dL Calcium (8.5-10.1) mg/dL Total Bilirubin (0.2-1.0) mg/dL AST (15-37) IU/L ALT (14-63) IU/L Alkaline Phosphatase (46-116) U/L Total Protein (6.4-8.2) g/dL Albumin (3.4-5.0) g/dL Globulin (2.6-4.0) g/dL Albumin/Globulin Ratio (0.9-1.6) Amylase (25-115) U/L Lipase (73-393) U/L Urine Color Urine Appearance Urine pH (5.0-8.0) Ur Specific [place] (1.001-1.035) Urine Protein (NEGATIVE) mg/dL Urine Glucose (UA) (NEGATIVE) mg/dL Urine Ketones (NEGATIVE) mg/dL Urine Occult Blood (NEGATIVE) Urine Nitrite (NEGATIVE) Urine Bilirubin (NEGATIVE) Urine Urobilinogen (<2.0) EU/dL Ur Leukocyte Esterase (NEGATIVE) Meds: Medications Generic Name Dose Route Start Last Admin Trade Name Freq PRN Reason Stop Dose Admin Sodium Chloride 1,000 mls @ 999 mls/hr 10/30/19 03:49 10/30/19 03:50 Normal Saline IV 10/30/19 04:49 999 mls/hr STAT ONE Administration Sodium Chloride 1,000 mls @ 125 mls/hr 10/30/19 04:45 Normal Saline IV ASDIRECTED PARTHA Sodium Chloride 10 ml 10/30/19 02:43 Saline Flush FLUSH ASDIRECTED PRN Keep Vein Open Sodium Chloride 2.5 ml 10/30/19 02:43 Saline Flush FLUSH ASDIRECTED PRN Keep Vein Open Discontinued Medications Generic Name Dose Route Start Last Admin Trade Name Freq PRN Reason Stop Dose Admin Sodium Chloride 1,000 mls @ 999 mls/hr 10/30/19 02:43 10/30/19 02:56 Normal Saline IV 10/30/19 03:43 999 mls/hr STAT ONE Administration Morphine Sulfate 2 mg 10/30/19 02:43 10/30/19 02:56 Morphine IVPUSH 10/30/19 02:44 2 mg ONETIME ONE Administration Morphine Sulfate 2 mg 10/30/19 04:21 10/30/19 04:26 Morphine IVPUSH 10/30/19 04:22 2 mg ONETIME ONE Administration Ondansetron HCl 4 mg 10/30/19 02:43 10/30/19 02:56 Zofran IVPUSH 10/30/19 02:44 4 mg ONETIME ONE Administration Departure - Departure Time of Disposition: 04:44 Disposition: Refer to Observation Condition: Good Clinical Impression: Right upper quadrant pain, Second trimester - Discharge Information Referrals: PCP,None [Primary Care Provider] - Forms: ED Department Discharge Sepsis Event Note - Evaluation Sepsis Screening Result: No Definite Risk - Focused Exam Vital Signs: Vital Signs Temp Pulse Resp BP Pulse Ox 10/30/19 04:23 36.1 C 82 18 113/68 100 10/30/19 02:30 36.1 C 84 18 105/64 98 Date Exam was Performed: 10/30/19 Time Exam was Performed: 04:43 - My Orders Last 24 Hours: My Active Orders 12/19/19 02:42 Saline Lock Insert [OM.PC] Stat 10/30/19 02:43 Communication Order [RC] STAT Sodium Chloride 0.9% [Saline Flush] 10 ml FLUSH ASDIRECTED PRN Sodium Chloride 0.9% [Saline Flush] 2.5 ml FLUSH ASDIRECTED PRN 10/30/19 03:49 Sodium Chloride 0.9% [Normal Saline] 1,000 ml IV STAT 10/30/19 04:41 Patient Status [ADT] Stat Notify Provider Consults [RC] ASDIRECTED Consult to Physician [CONS] Stat 10/30/19 04:45 Sodium Chloride 0.9% @ 125 MLS/HR (1,000ml) Sodium Chloride 0.9% [Normal Saline ] 1,000 ml IV ASDIRECTED - Assessment/Plan Last 24 Hours: My Active Orders 10/30/19 02:42 Saline Lock Insert [OM.PC] Stat 10/30/19 02:43 Communication Order [RC] STAT Sodium Chloride 0.9% [Saline Flush] 10 ml FLUSH ASDIRECTED PRN Sodium Chloride 0.9% [Saline Flush] 2.5 ml FLUSH ASDIRECTED PRN 10/30/19 03:49 Sodium Chloride 0.9% [Normal Saline] 1,000 ml IV STAT 10/30/19 04:41 Patient Status [ADT] Stat Notify Provider Consults [RC] ASDIRECTED Consult to Physician [CONS] Stat 10/30/19 04:45 Sodium Chloride 0.9% @ 125 MLS/HR (1,000ml) Sodium Chloride 0.9% [Normal Saline ] 1,000 ml IV ASDIRECTED
[2019-10-30 03:20] LABS: BLOOD UREA NITROGEN,BUN 6 mg/dL (7.0-18.0); CARBON DIOXIDE,CO2 23.1 mmol/L (21.0-32.0); CHLORIDE,CL 103 mmol/L (98-107); GLUCOSE RANDOM 97 mg/dL (74-106); LIPASE 115 U/L (73-393); POTASSIUM,K 3.4 mmol/L (3.5-5.1); SODIUM,NA 137 mmol/L (136-145)
--- NOTE | 2019-10-30 04:05 | US ---
INDICATION: Right upper quadrant pain TECHNIQUE: Ultrasound abdomen limited. Sonographic images of the right upper quadrant were obtained using christianson-scale and color Doppler images. COMPARISON: None FINDINGS: Liver: Normal in size and echotexture. No masses. No intrahepatic biliary dilatation. Gallbladder: No stones or sludge. Normal wall thickness. No pericholecystic fluid. Common bile duct: 4 mm. Pancreas: Not well visualized. Right kidney: 12.3 cm. Normal echotexture and cortex. No masses, stones, or hydronephrosis. IMPRESSION: Unremarkable right upper quadrant ultrasound. Dictated by Braulio Hardin MD @ Oct 30 2019 4:03AM Signed by Dr. Braulio Hardin @ Oct 30 2019 4:03AM
[2019-10-30] MEDS: Sodium Chloride 0.9% 1,000 ML IV SCH ×3 (04:46→12:52)
--- NOTE | 2019-10-30 09:04 | PCM.CONS ---
H&P History of Present Illness - General Date of Service: 10/30/19 Admit Problem/Dx: Admission Diagnosis/Problem Admission Diagnosis/Problem Abdominal pain during Source of Information: Patient History Limitations: Reports: No Limitations - History of Present Illness Initial Comments - Free Text/Narative: 18 y/o female who presented to the ER early this am with abdominal pain and one episode of nausea and vomiting. This occurred after eating a grilled cheese sandwich and tomato soup . She is currently 15 weeks and has noted greasy food intolerance with this . There is no family history of biliary tract disease as far as she knows. She denies any fever or chills. Symptom Onset Date: 10/29/19 Duration of Symptoms: Reports: Hour(s):, Constant Location: Reports: Abdomen Quality: Reports: Ache Severity: Moderate Improves with: Reports: Rest Worsens with: Reports: None Context: Reports: Sick Contact Associated Symptoms: Reports: Loss of Appetite, Nausea/Vomiting. Denies: Shortness of Breath, Syncope Abdomen Pain Score (Numeric/FACES): 10 - Related Data Allergies/Adverse Reactions: Allergies Allergy/AdvReac Type Severity Reaction Status Date / Time No Known Allergies Allergy Verified 10/30/19 05:18 Home Medications: Home Meds Vits #93/Iron Fum/FA [ Formula Tablet] 1 each PO DAILY [History] buPROPion [Wellbutrin SR] 100 mg PO DAILY 10/30/19 [History] Past Medical History - Past Health History Medical/Surgical History: Denies Medical/Surgical History HEENT History: Reports: Impaired Vision Cardiovascular History: Reports: None Respiratory History: Reports: None Gastrointestinal History: Reports: None Genitourinary History: Reports: None CLINICAL RESEARCH PHYSICIAN History: Reports: Musculoskeletal History: Reports: None Neurological History: Reports: None Psychiatric History: Reports: Anxiety, Depression, Suicide Attempt Endocrine/Metabolic History: Reports: None Insulin Pump Model and Bottle Carrier: None Hematologic History: Reports: None Immunologic History: Reports: None Oncologic (Cancer) History: Reports: None Dermatologic History: Reports: None - Infectious Disease History Infectious Disease History: Reports: None - Past Surgical History Head Surgeries/Procedures: Reports: None Cardiovascular Surgical History: Reports: None Respiratory Surgical History: Reports: None GI Surgical History: Reports: None Female Surgical History: Reports: Other (See Below) Other Female Surgeries/Procedures: Vaginal stitches in childhood after falling on playground equipment. Neurological Surgical History: Reports: None Musculoskeletal Surgical History: Reports: None Social & Family History - Family History Family Medical History: Noncontributory Cardiac: Reports: Other (See Below) Other Cardiac Family History: heart disease Respiratory: Reports: Asthma : Reports: Pyelonephritis, Renal Calculus, UTI, Recurrent OBGYN: Reports: Psychiatric: Reports: ADHD, Anxiety, Depression, Panic Attack, PTSD Endocrine/Metabolic: Reports: Diabetes, type II, Hyperthyroidism Immunologic: Reports: Other (See Below) Other Immunologic Family History: Saracoidus Oncologic: Reports: Cervix, Skin, Other (See Below) Other Oncologic Family History: Throat - Tobacco Use Smoking Status *Q: Former Smoker Years of Tobacco use: 7 Packs/Tins Daily: 1 Used Tobacco, but Quit: Yes Month/Year Tobacco Last Used: january 2019 - Caffeine Use Caffeine Use: Reports: Coffee, Soda - Recreational Drug Use Recreational Drug Use: No H&P Review of Systems - Review of Systems: Review Of Systems: See Below General: Reports: Decreased Appetite. Denies: Fever, Chills, Malaise, Weakness , Fatigue HEENT: Reports: No Symptoms Pulmonary: Denies: Shortness of Breath, Wheezing Cardiovascular: Denies: Chest Pain, Palpitations Gastrointestinal: Reports: Abdominal Pain, Anorexia, Decreased Appetite, Flatus , Nausea, Vomiting. Denies: Black Stool, Bloody Stool, Constipation, Diarrhea, Distension, Hematemesis, Hematochezia, Melena Genitourinary: Denies: Dysuria, Frequency, Burning, Pain, Urgency Musculoskeletal: Reports: No Symptoms Skin: Denies: Cyanosis, Jaundice, Mottled, Pallor Psychiatric: Reports: No Symptoms Exam - Exam Exam: See Below - Vital Signs Vital Signs: Last Vital Signs Temp 97.6 F 10/30/19 07:50 Pulse 84 10/30/19 07:50 Resp 16 10/30/19 05:15 BP 106/55 L 10/30/19 07:50 Pulse Ox 95 10/30/19 07:50 Weight: 150 lb 12.739 oz - Exam General: Alert, Oriented, Cooperative, Mild Distress HEENT: Conjunctiva Clear, EACs Clear, Pupils Equal, Pupils Reactive, Other ( slight malar flush), PERRLA. No: Scleral Icterus Neck: Supple, Trachea Midline Lungs: Clear to Auscultation, Normal Respiratory Effort Cardiovascular: Regular Rate, Regular Rhythm, Normal S1, Normal S2. No: Tachycardia, Systolic Murmur, Diastolic Murmur GI/Abdominal Exam: Normal Bowel Sounds, Soft, No Distention, Tender (right lower quadrant). No: Guarding, Rebound (Female) Exam: Deferred Rectal (Female) Exam: Deferred Back Exam: Normal Inspection, Full Range of Motion Extremities: Normal Inspection, Normal Range of Motion Peripheral Pulses: 4+: Posterior Tibial (L), Posterior Tibial (R), Dorsalis Pedis (L), Dorsalis Pedis (R) Skin: Warm, Dry, Intact Neurological: Cranial Nerves Intact Psychiatric: Alert, Normal Affect, Normal Mood - Patient Data Lab Results Last 24 hrs: Laboratory Results - last 24 hr 10/30/19 10/30/19 10/30/19 Range/Units 02:35 02:45 02:45 WBC 15.96 H (4.0-11.0) K/uL RBC 5.03 (4.30-5.90) M/uL Hgb 14.0 (12.0-16.0) g/dL Hct 40.1 (36.0-46.0) % MCV 79.7 L (80.0-98.0) fL MCH 27.8 (27.0-32.0) pg MCHC 34.9 (31.0-37.0) g/dL RDW Std Deviation 40.0 (28.0-62.0) fl RDW Coeff of Shira 14 (11.0-15.0) % Plt Count 248 (150-400) K/uL MPV 10.70 (7.40-12.00) fL Neut % (Auto) 84.4 H (48.0-80.0) % Lymph % (Auto) 11.2 L (16.0-40.0) % [place] % (Auto) 3.8 (0.0-15.0) % Eos % (Auto) 0.4 (0.0-7.0) % Baso % (Auto) 0.2 (0.0-1.5) % Neut # (Auto) 13.5 H (1.4-5.7) K/uL Lymph # (Auto) 1.8 (0.6-2.4) K/uL [place] # (Auto) 0.6 (0.0-0.8) K/uL Eos # (Auto) 0.1 (0.0-0.7) K/uL Baso # (Auto) 0.0 (0.0-0.1) K/uL Sodium 137 (136-145) mmol/L Potassium 3.4 L (3.5-5.1) mmol/L Chloride 103 (98-107) mmol/L Carbon Dioxide 23.1 (21.0-32.0) mmol/L BUN 6 L (7.0-18.0) mg/dL Creatinine 0.5 L (0.6-1.0) mg/dL Est Cr Clr Drug Dosing 148.47 mL/min Estimated GFR (MDRD) > 60.0 ml/min Glucose 97 (74-106) mg/dL Calcium 8.7 (8.5-10.1) mg/dL Total Bilirubin 0.2 (0.2-1.0) mg/dL AST 11 L (15-37) IU/L ALT 18 (14-63) IU/L Alkaline Phosphatase 70 (46-116) U/L Total Protein 7.8 (6.4-8.2) g/dL Albumin 3.2 L (3.4-5.0) g/dL Globulin 4.6 H (2.6-4.0) g/dL Albumin/Globulin Ratio 0.7 L (0.9-1.6) Amylase 55 (25-115) U/L Lipase 115 (73-393) U/L Urine Color YELLOW Urine Appearance CLEAR Urine pH 6.0 (5.0-8.0) Ur Specific [place] 1.025 (1.001-1.035) Urine Protein NEGATIVE (NEGATIVE) mg/dL Urine Glucose (UA) NEGATIVE (NEGATIVE) mg/dL Urine Ketones 40 H (NEGATIVE) mg/dL Urine Occult Blood NEGATIVE (NEGATIVE) Urine Nitrite NEGATIVE (NEGATIVE) Urine Bilirubin NEGATIVE (NEGATIVE) Urine Urobilinogen 0.2 (<2.0) EU/dL Ur Leukocyte Esterase NEGATIVE (NEGATIVE) 10/30/19 Range/Units 04:29 WBC 14.92 H (4.0-11.0) K/uL RBC 4.38 (4.30-5.90) M/uL Hgb 12.2 (12.0-16.0) g/dL Hct 35.8 L (36.0-46.0) % MCV 81.7 (80.0-98.0) fL MCH 27.9 (27.0-32.0) pg MCHC 34.1 (31.0-37.0) g/dL RDW Std Deviation 40.9 (28.0-62.0) fl RDW Coeff of Shira 14 (11.0-15.0) % Plt Count 222 (150-400) K/uL MPV 10.50 (7.40-12.00) fL Neut % (Auto) 86.2 H (48.0-80.0) % Lymph % (Auto) 8.8 L (16.0-40.0) % [place] % (Auto) 4.5 (0.0-15.0) % Eos % (Auto) 0.3 (0.0-7.0) % Baso % (Auto) 0.2 (0.0-1.5) % Neut # (Auto) 12.9 H (1.4-5.7) K/uL Lymph # (Auto) 1.3 (0.6-2.4) K/uL [place] # (Auto) 0.7 (0.0-0.8) K/uL Eos # (Auto) 0.0 (0.0-0.7) K/uL Baso # (Auto) 0.0 (0.0-0.1) K/uL Sodium (136-145) mmol/L Potassium (3.5-5.1) mmol/L Chloride (98-107) mmol/L Carbon Dioxide (21.0-32.0) mmol/L BUN (7.0-18.0) mg/dL Creatinine (0.6-1.0) mg/dL Est Cr Clr Drug Dosing mL/min Estimated GFR (MDRD) ml/min Glucose (74-106) mg/dL Calcium (8.5-10.1) mg/dL Total Bilirubin (0.2-1.0) mg/dL AST (15-37) IU/L ALT (14-63) IU/L Alkaline Phosphatase (46-116) U/L Total Protein (6.4-8.2) g/dL Albumin (3.4-5.0) g/dL Globulin (2.6-4.0) g/dL Albumin/Globulin Ratio (0.9-1.6) Amylase (25-115) U/L Lipase (73-393) U/L Urine Color Urine Appearance Urine pH (5.0-8.0) Ur Specific [place] (1.001-1.035) Urine Protein (NEGATIVE) mg/dL Urine Glucose (UA) (NEGATIVE) mg/dL Urine Ketones (NEGATIVE) mg/dL Urine Occult Blood (NEGATIVE) Urine Nitrite (NEGATIVE) Urine Bilirubin (NEGATIVE) Urine Urobilinogen (<2.0) EU/dL Ur Leukocyte Esterase (NEGATIVE) Result Diagrams: 10/30/19 04:29 10/30/19 02:45 Sepsis Event Note - Evaluation Sepsis Screening Result: No Definite Risk - Focused Exam Vital Signs: Vital Signs Temp Pulse Resp BP BP Pulse Ox 10/30/19 07:50 97.6 F 84 106/55 L 95 10/30/19 05:15 98.0 F 85 16 110/60 99 10/30/19 04:23 97 F 82 18 113/68 100 10/30/19 02:30 97 F 84 18 105/64 98 Date Exam was Performed: 10/30/19 Time Exam was Performed: 08:59 Consult PN Assessment/Plan Procedures: Procedures ASSAY OF FIBRONECTIN (07/26/18) BL SMEAR W/DIFF WBC COUNT (09/01/18) BLOOD TYPING SEROLOGIC ABO (04/22/19) BLOOD TYPING SEROLOGIC RH(D) (04/22/19) C-REACTIVE PROTEIN (08/22/16) YOSSI DNA DIR PROBE (09/15/19) CHORIONIC GONADOTROPIN TEST (04/28/19) CHYLMD TRACH DNA AMP PROBE (09/15/19) COMPLETE CBC AUTOMATED (11/14/18) COMPLETE CBC W/AUTO DIFF WBC (10/07/19) COMPREHEN METABOLIC PANEL (10/07/19) CULTURE SCREEN ONLY (10/11/18) DRUG TEST PRSMV DIR OPT OBS (09/15/19) ECHO EXAM OF ABDOMEN (07/19/18) ELECTROCARDIOGRAM TRACING (04/25/18) EMERGENCY DEPT VISIT (10/07/19) EMERGENCY DEPT VISIT (03/25/18) EMERGENCY DEPT VISIT (10/07/17) EMERGENCY DEPT VISIT (07/09/17) EMERGENCY DEPT VISIT (08/22/16) NON-STRESS TEST (11/14/18) VILLANUEVA VAG DNA DIR PROBE (09/15/19) HYDRATE IV INFUSION ADD-ON (10/07/19) HYDRATION IV INFUSION INIT (04/25/18) IMMUNIZATION ADMIN (03/25/18) INFLUENZA ASSAY W/OPTIC (12/26/17) INSERT CERVICAL DILATOR (11/14/18) INSERT TEMP BLADDER CATH (11/14/18) METABOLIC PANEL TOTAL CA (09/01/18) MICROBE SUSCEPTIBLE AARON (09/15/19) N.GONORRHOEAE DNA AMP PROB (09/15/19) OB US < 14 WKS SINGLE FETUS (04/22/19) OB US LIMITED FETUS(S) (07/19/18) OBSTETRICAL CARE (11/14/18) RBC ANTIBODY SCREEN (11/14/18) RBC SED RATE AUTOMATED (08/22/16) ROUTINE VENIPUNCTURE (10/07/19) STREP A ASSAY W/OPTIC (12/26/17) TDAP VACCINE 7 YRS/> IM (03/25/18) THER/PROPH/DIAG INJ IV PUSH (10/07/19) THER/PROPH/DIAG INJ SC/IM (07/09/17) THER/PROPH/DIAG IV INF INIT (07/19/18) TRANSVAGINAL US OBSTETRIC (07/19/18) TRICHOMONAS VAGIN DIR PROBE (09/15/19) URINALYSIS AUTO W/O SCOPE (09/15/19) URINALYSIS AUTO W/SCOPE (10/07/19) URINE BACTERIA CULTURE (09/15/19) URINE CULTURE/COLONY COUNT (10/07/19) URINE TEST (10/07/19) US EXAM ABDO BACK WALL JAIMES (08/25/18) X-RAY EXAM L-S SPINE 2/3 VWS (07/09/17) (1) Right lower quadrant abdominal pain SNOMED Code(s): 134180815 Code(s): R10.31 - RIGHT LOWER QUADRANT PAIN Priority: Medium Current Visit: Yes (2) Right upper quadrant pain SNOMED Code(s): 217501858 Code(s): R10.11 - RIGHT UPPER QUADRANT PAIN Priority: Medium Current Visit: Yes (3) Second trimester SNOMED Code(s): 88876580 Code(s): Z34.92 - ENCNTR FOR SUPRVSN OF NORMAL PREG, UNSP, SECOND TRIMESTER Priority: Low Current Visit: Yes Problem List Initiated/Reviewed/Updated: Yes Plan: Patient seems a little more tender in the RLQ than the RUQ. No mass noted. No rebound. WBC did come down slightly. Discussed with Dr. Turner. Would consider CT of abdomen to r/o appendicitis and HIDA scan to assess gallbladder function in the light of the normal GBUS. Repeat labs ordered for noon. Will continue to follow. Thank you.
[2019-10-30] MEDS: Acetaminophen 325 MG Tab PO PRN ×2 (09:13→15:06)
[2019-10-30 18:30] VITALS: BP 104/53; PULSE 97
== END 2019-10-30 18:45 | disposition home or self-care (01) ==
LOC: MW.ED 02:23 → MW.MS 04:41
PROVIDERS: ADMIT Obstetrics & Gynecology; ATTEND Obstetrics & Gynecology
DX: O99.89 Other specified diseases and conditions complicating pregnancy, childbirth and the puerperium (principal); R10.11 Right upper quadrant pain; R10.31 Right lower quadrant pain; O21.9 Vomiting of pregnancy, unspecified; O99.342 Other mental disorders complicating pregnancy, second trimester; F41.9 Anxiety disorder, unspecified; F32.9 Major depressive disorder, single episode, unspecified; Z3A.15 15 weeks gestation of pregnancy; Z87.891 Personal history of nicotine dependence; Z79.899 Other long term (current) drug therapy
CPT/HCPCS: 36415; 76705; 76705-26; 80053; 81003; 82150; 83690; 85025; 96361; 96374; 96375; 96376; 99285-25; A9270-GY; J2270; J2405; J7030

== ENCOUNTER 2020-04-16 00:10 | Inpatient (IN) | payer BC ==
[2020-04-16] MEDS ORDERED: Misoprostol 200 MCG Tab PO PRN (00:41)
[2020-04-16] MEDS ORDERED: Tranexamic Acid 1,000 MG in Sodium Chloride 0.9% 100 ML IV PRN (00:41)
[2020-04-16] MEDS ORDERED: Terbutaline 1 MG/ML SDV SUBCUT PRN (00:41)
[2020-04-16] MEDS ORDERED: Ondansetron 4 MG/2 ML SDV IVPUSH PRN (00:41)
[2020-04-16] MEDS ORDERED: Water For Irrigation,Sterile 1,000 ML Container IRR PRN (00:41)
[2020-04-16] MEDS ORDERED: Carboprost Tromethamine 250 MCG/1 ML Amp IM PRN (00:41)
[2020-04-16] MEDS ORDERED: Misoprostol 25 MCG (1/4 of 100 MCG) Tab PO PRN (00:41)
[2020-04-16] MEDS ORDERED: Sodium Chloride 0.9% 10 ML Syringe FLUSH PRN (00:41)
[2020-04-16] MEDS ORDERED: Sodium Chloride 0.9% 2.5 ML Syringe FLUSH PRN (00:41)
[2020-04-16] MEDS ORDERED: Nalbuphine 10 MG/1 ML Vial IVPUSH PRN (00:41)
[2020-04-16] MEDS ORDERED: Sodium Chloride 0.9% 10 ML SDV IV PRN (00:41)
[2020-04-16] MEDS ORDERED: Misoprostol 25 MCG (1/4 of 100 MCG) Tab VAG PRN (00:41)
[2020-04-16] MEDS ORDERED: Methylergonovine 0.2 MG/1 ML Amp IM PRN (00:41)
[2020-04-16] MEDS ORDERED: Butorphanol 1 MG/ML SDV IVPUSH PRN (00:41)
[2020-04-16] MEDS ORDERED: Lidocaine 1% 50 ML MDV INJECT PRN (00:41)
[2020-04-16] MEDS ORDERED: Oxytocin/0.9 % Sodium Chloride 30 UNIT/500 ML BAG IV SCH ×2 (00:45)
[2020-04-16] MEDS: Misoprostol 25 MCG (1/4 of 100 MCG) Tab PO PRN ×2 (05:45→09:39)
[2020-04-16] MEDS: Misoprostol 25 MCG (1/4 of 100 MCG) Tab VAG PRN ×2 (05:55→09:38)
--- NOTE | 2020-04-16 09:21 | PCM.LDHP ---
L&D History of Present Illness - General Date of Service: 04/16/20 Admit Problem/Dx: Patient Status Order with Admit Dx/Problem 04/16/20 00:41 Patient Status [ADT] Routine Admission Diagnosis/Problem Admission Diagnosis/Problem 04/16/20 09:17 Martha is a 19 yo at 39.6 weeks gestation (KONSTANTIN 04/17/2020) that presents today for en elective induction of labor using cytotec to pitocin protocol, see new orders. O pos, RI, GBS neg. Source of Information: Patient History Limitations: Reports: No Limitations - History of Present Illness Improves with: Reports: Medication Associated Symptoms: Reports: N - Related Data Allergies/Adverse Reactions: Allergies Allergy/AdvReac Type Severity Reaction Status Date / Time No Known Allergies Allergy Verified 10/30/19 05:18 Home Medications: Home Meds Vits #93/Iron Fum/FA [ Formula Tablet] 1 each PO DAILY [History] buPROPion [Wellbutrin SR] 100 mg PO DAILY 10/30/19 [History] Past Medical History - Past Health History Medical/Surgical History: Denies Medical/Surgical History HEENT History: Reports: Impaired Vision Cardiovascular History: Reports: None Respiratory History: Reports: None Gastrointestinal History: Reports: None Genitourinary History: Reports: None COMMERCIAL REPORTER History: Reports: Musculoskeletal History: Reports: None Neurological History: Reports: Migraines Psychiatric History: Reports: Anxiety, Depression, Suicide Attempt Endocrine/Metabolic History: Reports: None Insulin Pump Model and Singeing Torch Operator: None Hematologic History: Reports: None Immunologic History: Reports: None Oncologic (Cancer) History: Reports: None Dermatologic History: Reports: None - Infectious Disease History Infectious Disease History: Reports: None - Past Surgical History Head Surgeries/Procedures: Reports: None Cardiovascular Surgical History: Reports: None Respiratory Surgical History: Reports: None GI Surgical History: Reports: None Female Surgical History: Reports: Other (See Below) Other Female Surgeries/Procedures: Vaginal stitches in childhood after falling on playground equipment. Neurological Surgical History: Reports: None Musculoskeletal Surgical History: Reports: None Social & Family History - Family History Family Medical History: Noncontributory Cardiac: Reports: Other (See Below) Other Cardiac Family History: heart disease Respiratory: Reports: Asthma : Reports: Pyelonephritis, Renal Calculus, UTI, Recurrent OBGYN: Reports: Psychiatric: Reports: ADHD, Anxiety, Depression, Panic Attack, PTSD Endocrine/Metabolic: Reports: Diabetes, type II, Hyperthyroidism Immunologic: Reports: Other (See Below) Other Immunologic Family History: Saracoidus Oncologic: Reports: Cervix, Skin, Other (See Below) Other Oncologic Family History: Throat - Tobacco Use Smoking Status *Q: Former Smoker Years of Tobacco use: 3 Packs/Tins Daily: 1 Used Tobacco, but Quit: Yes Month/Year Tobacco Last Used: 06/2019 Second Hand Smoke Exposure: Yes - Caffeine Use Caffeine Use: Reports: Coffee, Soda - Recreational Drug Use Recreational Drug Use: No H&P Review of Systems - Review of Systems: Review Of Systems: Comprehensive ROS is negative, except as noted in HPI. General: Reports: No Symptoms HEENT: Reports: No Symptoms Pulmonary: Reports: No Symptoms Cardiovascular: Reports: No Symptoms Gastrointestinal: Reports: No Symptoms Genitourinary: Reports: No Symptoms Musculoskeletal: Reports: No Symptoms Skin: Reports: No Symptoms Psychiatric: Reports: No Symptoms Neurological: Reports: No Symptoms Hematologic/Lymphatic: Reports: No Symptoms Immunologic: Reports: No Symptoms L&D Exam - Exam Exam: See Below - Vital Signs Vital Signs: T 98.2, HR 81, BP 111/70 (80). Weight: 178 lb - OB Specific Fundal Height In cm: 39 Contraction Duration (sec): 40-60 Contraction Frequency (min): 2-4 Contraction Intensity: Mild to Moderate Movement: Active Heart Tones: Present Heart Tones per Min: 130 Heart Rate (FHR) Variability: Moderate (6-25 bmp) Presentation: Vertex - Starks Score Starks Score Cervix Position: Anterior Starks Score Consistency: Medium Starks Score Effacement: 0-30% Starks Score Dilation: 1-2 cm Starks Score Infant's Station: -2 Starks Score Total: 5 - Exam General: Alert, Oriented HEENT: Conjunctiva Clear, Hearing Intact, Mucosa Moist & [place], Nares Patent, PERRLA Neck: Supple, Trachea Midline Lungs: Clear to Auscultation, Normal Respiratory Effort Cardiovascular: Regular Rate, Regular Rhythm GI/Abdominal Exam: Normal Bowel Sounds, Soft, Non-Tender, No Organomegaly, No Distention, No Mass, Other (Gravid uterus) Rectal Exam: Deferred Genitourinary: Normal external exam, Normal bimanual exam Back Exam: Normal Inspection, Full Range of Motion Extremities: Normal Inspection, Normal Range of Motion, Non-Tender, No Pedal Edema, Normal Capillary Refill Skin: Warm, Dry, Intact Neurological: Cranial Nerves Intact, Reflexes Equal Bilateral Psychiatric: Alert, Normal Affect, Normal Mood - Patient Data Lab Results Last 24 hrs: Laboratory Results - last 24 hr 04/16/20 04/16/20 Range/Units 01:10 01:10 WBC 13.94 H (4.0-11.0) K/uL RBC 4.26 L (4.30-5.90) M/uL Hgb 10.7 L (12.0-16.0) g/dL Hct 33.6 L (36.0-46.0) % MCV 78.9 L (80.0-98.0) fL MCH 25.1 L (27.0-32.0) pg MCHC 31.8 (31.0-37.0) g/dL RDW Std Deviation 40.5 (28.0-62.0) fl RDW Coeff of Shira 15 (11.0-15.0) % Plt Count 278 (150-400) K/uL MPV 12.10 H (7.40-12.00) fL Blood Type O POSITIVE Antibody Screen NEGATIVE Result Diagrams: 04/16/20 01:10 - Problem List (1) Elective induction of labor planned SNOMED Code(s): 471370794 ICD Code: [id number] - Status: Acute Priority: High Current Visit: Yes (2) 39 weeks gestation of SNOMED Code(s): 87149155 ICD Code: Z3A.39 - 39 WEEKS GESTATION OF Status: Acute Priority : High Current Visit: Yes Problem List Initiated/Reviewed/Updated: Yes Orders Last 24hrs: Active Orders 24 hr Category Date Time Status Patient Status [ADT] Routine ADT 04/16/20 00:41 Active Bedrest Bathroom Privileges [RC] ASDIRECTED Care 04/16/20 00:41 Active Communication Order [RC] ASDIRECTED Care 04/16/20 00:41 Active Communication Order [RC] ASDIRECTED Care 04/16/20 00:41 Active Communication Order [RC] ASDIRECTED Care 04/16/20 00:41 Active Heart Tones [RC] CONTINUOUS Care 04/16/20 00:41 Active Non Stress Test [RC] PER UNIT ROUTINE Care 04/16/20 00:41 Active May Shower [RC] ASDIRECTED Care 04/16/20 00:41 Active Notify Provider [RC] PRN Care 04/16/20 00:41 Active Notify Provider [RC] PRN Care 04/16/20 00:41 Active Notify Provider [RC] PRN Care 04/16/20 00:41 Active Notify Provider [RC] STAT Care 04/16/20 00:41 Active Oxygen Therapy [RC] ASDIRECTED Care 04/16/20 00:41 Active Up ad Maryana [RC] ASDIRECTED Care 04/16/20 00:41 Active Vaginal Exam [RC] PRN Care 04/16/20 00:41 Active Vaginal Exam [RC] PRN Care 04/16/20 00:41 Active Vital Signs [RC] PER UNIT ROUTINE Care 04/16/20 00:41 Active Vital Signs [RC] PER UNIT ROUTINE Care 04/16/20 00:41 Active Regular Diet [DIET] Diet 04/16/20 Breakfast Active RPR (SYPHILIS SERO) W/ RFLX [REF] Routine Lab 04/16/20 01:10 Received Butorphanol [Stadol] Med 04/16/20 00:41 Active 1 mg IVPUSH Q1H PRN Carboprost Tromethamine [Hemabate DS] Med 04/16/20 00:41 Active 250 mcg IM ASDIRECTED PRN Lactated Ringers [Ringers, Lactated] 1,000 ml Med 04/16/20 00:45 Active IV ASDIRECTED Lidocaine 1% [Xylocaine 1%] Med 04/16/20 00:41 Active 50 ml INJECT ONETIME PRN Methylergonovine [Methergine] Med 04/16/20 00:41 Active 0.2 mg IM ASDIRECTED PRN Nalbuphine [Nubain] Med 04/16/20 00:41 Active 10 mg IVPUSH Q1H PRN Ondansetron [Zofran] Med 04/16/20 00:41 Active 4 mg IVPUSH Q4H PRN Oxytocin/0.9 % Sodium Chloride [Oxytocin 30 Unit/500 ML Med 04/16/20 00:45 Active -NS] 30 unit in 500 ml IV TITRATE Oxytocin/0.9 % Sodium Chloride [Oxytocin 30 Unit/500 ML Med 04/16/20 00:45 Active -NS] 30 unit in 500 ml IV TITRATE Sodium Chloride 0.9% [Normal Saline] Med 04/16/20 00:41 Active 10 ml IV ASDIRECTED PRN Sodium Chloride 0.9% [Saline Flush] Med 04/16/20 00:41 Active 10 ml FLUSH ASDIRECTED PRN Sodium Chloride 0.9% [Saline Flush] Med 04/16/20 00:41 Active 2.5 ml FLUSH ASDIRECTED PRN Terbutaline [Brethine] Med 04/16/20 00:41 Active 0.25 mg SUBCUT ASDIRECTED PRN Tranexamic Acid [Cyklokapron] 1,000 mg Med 04/16/20 00:41 Active Sodium Chloride 0.9% [Normal Saline] 100 ml IV ONETIME Water For Irrigation,Sterile [Sterile Water for Med 04/16/20 00:41 Active Irrigation] 1,000 ml IRR ASDIRECTED PRN miSOPROStoL [Cytotec] Med 04/16/20 00:41 Active 200 mcg PO ONETIME PRN miSOPROStoL [Cytotec] Med 04/16/20 00:41 Active 25 mcg PO ONETIME PRN miSOPROStoL [Cytotec] Med 04/16/20 00:41 Active 25 mcg PO Q4H PRN miSOPROStoL [Cytotec] Med 04/16/20 00:41 Active 25 mcg VAG ONETIME PRN miSOPROStoL [Cytotec] Med 04/16/20 00:41 Active 25 mcg VAG Q4H PRN Scalp Electrode [WOMSER] Per Unit Routine Oth 04/16/20 00:41 Ordered Medication Administration Instruction [OM.PC] Q3H Oth 04/16/20 00:45 Ordered Peripheral IV Insertion Adult [OM.PC] Routine Oth 04/16/20 00:41 Ordered Resuscitation Status Routine Resus Stat 04/16/20 00:41 Ordered Medication Orders Butorphanol Tartrate (Stadol) 1 mg IVPUSH Q1H PRN PRN Reason: Pain Carboprost Tromethamine (Hemabate Ds) 250 mcg IM ASDIRECTED PRN PRN Reason: Post Hemorrhage Lactated Ringer's (Ringers, Lactated) 1,000 mls @ 150 mls/hr IV ASDIRECTED PARTHA Oxytocin/Sodium Chloride (Oxytocin 30 Unit/500 Ml-Ns) 30 unit in 500 mls @ 555 mls/hr IV TITRATE PARTHA Oxytocin/Sodium Chloride (Oxytocin 30 Unit/500 Ml-Ns) 30 unit in 500 mls @ 2 mls/hr IV TITRATE PARTHA; Protocol Tranexamic Acid 1,000 mg/ (Sodium Chloride) 110 mls @ 660 mls/hr IV ONETIME PRN PRN Reason: Bleeding Lidocaine HCl (Xylocaine 1%) 50 ml INJECT ONETIME PRN PRN Reason: Laceration repair Methylergonovine Maleate (Methergine) 0.2 mg IM ASDIRECTED PRN PRN Reason: Post Hemorrhage Misoprostol (Cytotec) 200 mcg PO ONETIME PRN PRN Reason: Post Hemorrhage Misoprostol (Cytotec) 25 mcg VAG ONETIME PRN PRN Reason: Cervical Ripening Last Admin: 04/16/20 01:37 Dose: 25 mcg Misoprostol (Cytotec) 25 mcg VAG Q4H PRN PRN Reason: Cervical Ripening Last Admin: 04/16/20 05:55 Dose: 25 mcg Misoprostol (Cytotec) 25 mcg PO ONETIME PRN PRN Reason: Cervical Ripening Last Admin: 04/16/20 01:37 Dose: 25 mcg Misoprostol (Cytotec) 25 mcg PO Q4H PRN PRN Reason: Cervical Ripening Last Admin: 04/16/20 05:45 Dose: 25 mcg Nalbuphine HCl (Nubain) 10 mg IVPUSH Q1H PRN PRN Reason: Pain (severe 7-10) Ondansetron HCl (Zofran) 4 mg IVPUSH Q4H PRN PRN Reason: Nausea/Vomiting Sodium Chloride (Saline Flush) 10 ml FLUSH ASDIRECTED PRN PRN Reason: Keep Vein Open Sodium Chloride (Saline Flush) 2.5 ml FLUSH ASDIRECTED PRN PRN Reason: Keep Vein Open Sodium Chloride (Normal Saline) 10 ml IV ASDIRECTED PRN PRN Reason: IV Use Sterile Water (Sterile Water For Irrigation) 1,000 ml IRR ASDIRECTED PRN PRN Reason: delivery Terbutaline Sulfate (Brethine) 0.25 mg SUBCUT ASDIRECTED PRN PRN Reason: Tacysystole Assessment/Plan Comment:: Raistlen is a 19 yo at 39.6 weeks gestation (KONSTANTIN 04/17/2020) that presents today for en elective induction of labor using cytotec to pitocin protocol, see new orders. O pos, RI, GBS neg. Hemodynamically stable, afebrile. FHR Cat I. Continue with elective IOL per orders. Dr. Turner notified.
[2020-04-16] MEDS: Lactated Ringers 1,000 ML IV SCH ×2 (14:00→15:38)
[2020-04-16] MEDS ORDERED: fentaNYL 100 MCG/2 ML SDV ONE (14:09)
[2020-04-16] MEDS ORDERED: Ropivacaine HCl/PF 100 ML ONE (14:10)
--- NOTE | 2020-04-16 15:16 | PCM.PREANE ---
Preanesthetic Assessment - Procedure Proposed Procedure: RIMMA - Anesthesia/Transfusion/Family Hx Anesthesia History: Prior Anesthesia Without Reaction (Prior epidural with satisfactory results and no complications) Family History of Anesthesia Reaction: No Transfusion History: No Prior Transfusion(s) Intubation History: Unknown - Review of Systems General: No Symptoms Pulmonary: No Symptoms Cardiovascular: No Symptoms Gastrointestinal: No Symptoms Neurological: No Symptoms (Patient states her migraines have not been a problem for months) Other: Reports: None - Physical Assessment Height: 1.6 m Weight: 80.739 kg ASA Class: 2 Mental Status: Alert & Oriented x3 Dentition: Reports: Normal Dentition Thyro-Mental Finger Breadths: 4 ROM/Head Extension: Full Lungs: Normal Respiratory Effort Cardiovascular: Regular Rate, Regular Rhythm - Lab Values: Laboratory Last Values WBC 13.94 K/uL (4.0-11.0) H 04/16/20 01:10 RBC 4.26 M/uL (4.30-5.90) L 04/16/20 01:10 Hgb 10.7 g/dL (12.0-16.0) L 04/16/20 01:10 Hct 33.6 % (36.0-46.0) L 04/16/20 01:10 MCV 78.9 fL (80.0-98.0) L 04/16/20 01:10 MCH 25.1 pg (27.0-32.0) L 04/16/20 01:10 MCHC 31.8 g/dL (31.0-37.0) 04/16/20 01:10 RDW Std Deviation 40.5 fl (28.0-62.0) 04/16/20 01:10 RDW Coeff of Shira 15 % (11.0-15.0) 04/16/20 01:10 Plt Count 278 K/uL (150-400) 04/16/20 01:10 MPV 12.10 fL (7.40-12.00) H 04/16/20 01:10 Blood Type O POSITIVE 04/16/20 01:10 Antibody Screen NEGATIVE 04/16/20 01:10 - Allergies Allergies/Adverse Reactions: Allergies Allergy/AdvReac Type Severity Reaction Status Date / Time No Known Allergies Allergy Verified 10/30/19 05:18 - Acknowledgements Anesthesia Type Planned: Epidural Pt an Appropriate Candidate for the Planned Anesthesia: Yes Alternatives and Risks of Anesthesia Discussed w Pt/Guardian: Yes Pt/Guardian Understands and Agrees with Anesthesia Plan: Yes Additional Comments: Risks, alternatives, and plan of care for epidural anesthesia discussed. All questions and concerns addressed to patient's satisfaction. 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: Musculoskeletal History: Reports: None Neurological History: Reports: Migraines Psychiatric History: Reports: Anxiety, Depression, Suicide Attempt Endocrine/Metabolic History: Reports: None Hematologic History: Reports: None Immunologic History: Reports: None Oncologic (Cancer) History: Reports: None Dermatologic History: Reports: None - Infectious Disease History Infectious Disease History: Reports: None - Past Surgical History Head Surgeries/Procedures: Reports: None Cardiovascular Surgical History: Reports: None Respiratory Surgical History: Reports: None GI Surgical History: Reports: None Female Surgical History: Reports: Other (See Below) Other Female Surgeries/Procedures: Vaginal stitches in childhood after falling on playground equipment. Neurological Surgical History: Reports: None Musculoskeletal Surgical History: Reports: None - SUBSTANCE USE Smoking Status *Q: Former Smoker Tobacco Use Within Last Twelve Months: Cigarettes Second Hand Smoke Exposure: Yes Recreational Drug Use History: No - HOME MEDS Home Medications: Home Meds Vits #93/Iron Fum/FA [ Formula Tablet] 1 each PO DAILY [History] buPROPion [Wellbutrin SR] 100 mg PO DAILY 10/30/19 [History] - CURRENT (IN HOUSE) MEDS Current Meds: Current Medications Butorphanol Tartrate (Stadol) 1 mg IVPUSH Q1H PRN PRN Reason: Pain Last Admin: 04/16/20 14:00 Dose: 1 mg Carboprost Tromethamine (Hemabate Ds) 250 mcg IM ASDIRECTED PRN PRN Reason: Post Hemorrhage Lactated Ringer's (Ringers, Lactated) 1,000 mls @ 150 mls/hr IV ASDIRECTED PARTHA Last Admin: 04/16/20 14:00 Dose: 150 mls/hr Oxytocin/Sodium Chloride (Oxytocin 30 Unit/500 Ml-Ns) 30 unit in 500 mls @ 555 mls/hr IV TITRATE PARTHA Oxytocin/Sodium Chloride (Oxytocin 30 Unit/500 Ml-Ns) 30 unit in 500 mls @ 2 mls/hr IV TITRATE APRTHA; Protocol Tranexamic Acid 1,000 mg/ (Sodium Chloride) 110 mls @ 660 mls/hr IV ONETIME PRN PRN Reason: Bleeding Lidocaine HCl (Xylocaine 1%) 50 ml INJECT ONETIME PRN PRN Reason: Laceration repair Methylergonovine Maleate (Methergine) 0.2 mg IM ASDIRECTED PRN PRN Reason: Post Hemorrhage Misoprostol (Cytotec) 200 mcg PO ONETIME PRN PRN Reason: Post Hemorrhage Misoprostol (Cytotec) 25 mcg VAG ONETIME PRN PRN Reason: Cervical Ripening Last Admin: 04/16/20 01:37 Dose: 25 mcg Misoprostol (Cytotec) 25 mcg VAG Q4H PRN PRN Reason: Cervical Ripening Last Admin: 04/16/20 09:38 Dose: 25 mcg Misoprostol (Cytotec) 25 mcg PO ONETIME PRN PRN Reason: Cervical Ripening Last Admin: 04/16/20 01:37 Dose: 25 mcg Misoprostol (Cytotec) 25 mcg PO Q4H PRN PRN Reason: Cervical Ripening Last Admin: 04/16/20 09:39 Dose: 25 mcg Nalbuphine HCl (Nubain) 10 mg IVPUSH Q1H PRN PRN Reason: Pain (severe 7-10) Ondansetron HCl (Zofran) 4 mg IVPUSH Q4H PRN PRN Reason: Nausea/Vomiting Sodium Chloride (Saline Flush) 10 ml FLUSH ASDIRECTED PRN PRN Reason: Keep Vein Open Sodium Chloride (Saline Flush) 2.5 ml FLUSH ASDIRECTED PRN PRN Reason: Keep Vein Open Sodium Chloride (Normal Saline) 10 ml IV ASDIRECTED PRN PRN Reason: IV Use Sterile Water (Sterile Water For Irrigation) 1,000 ml IRR ASDIRECTED PRN PRN Reason: delivery Terbutaline Sulfate (Brethine) 0.25 mg SUBCUT ASDIRECTED PRN PRN Reason: Tacysystole Discontinued Medications Fentanyl (Sublimaze) Confirm Administered Dose 200 mcg .ROUTE .[facility] ONE Stop: 04/16/20 14:10 Ropivacaine (Naropin 0.2%) Confirm Administered Dose 100 mls @ as directed .ROUTE .[facility] ONE Stop: 04/16/20 14:11
--- NOTE | 2020-04-16 15:26 | PCM.SN.2 ---
- Free Text/Narrative Note: 1413- THERAPEUTIC DIETITIAN (Lalita Styles) to L&D room 2. Discussed epidural with patient and S.O. , including alternatives, risks (including but not limited to PDPH, itching, PDPH, nerve damage), procedure, and maintenance. Patient signed consent, RN as witness. 1423- Sitting position 1430- CLYDE with saline at 6cm with 17g tuohy needle (L2-3), catheter threaded to 11cm, possible small amount of CSF noted on aspiration. Catheter discontinued. 1435-Attempt #2, L4-5, 17g Tuohy. CLYDE at 5.5cm, catheter threaded to 10cm, no paresthesias 1437- negative to aspiration (no blood, no CSF). Test dose negative (lido 1.5% with epi, 3ml, waited 5min). VSS. See EMR for VS. 1456- Continuous epidural drip started after negative aspiration. (0.2% ropivicaine with 2mcg/ml fentanyl at 6ml/hr, 4ml [employer] bolus q 10 min, max hourly limit 30ml). Patient closely monitored for level of block.\ 1520- reassessed, legs slightly heavy but able to lift, T8 dermatome level, patient resting comfortably. Discussed possibly wet tap bedside with workday consultant THERAPEUTIC DIETITIAN and patient's RN, as well as discussing s/sx high spinal/epidural with patient (SOB, anxiety, cv changes, numbing above umbilicus, etc.) all are aware to be vigilant.
[2020-04-16] MEDS ORDERED: Benzocaine/Menthol 20%-0.5% Spray 78 GM Cannister TOP PRN (19:17)
[2020-04-16] MEDS ORDERED: Lanolin 100% Cream 7 GM Tube TOP PRN (19:17)
[2020-04-16] MEDS ORDERED: Witch Hazel Medicated Pads 40/Jar TOP PRN (19:17)
[2020-04-16] MEDS ORDERED: Bisacodyl 10 MG Supp RECTAL PRN (19:17)
[2020-04-16] MEDS ORDERED: oxyCODONE 5 MG Tab PO PRN (19:17)
[2020-04-16] MEDS ORDERED: Ibuprofen 400 MG Tab PO PRN (19:17)
[2020-04-16] MEDS ORDERED: Acetaminophen 500 MG Tab PO PRN ×2 (19:17)
[2020-04-16] MEDS ORDERED: Docusate Sodium 100 MG Cap PO PRN (19:17)
--- NOTE | 2020-04-16 19:27 | PCM.DEL ---
L & D Note - General Info Date of Service: 04/16/20 Mother's Due Date: 04/17/20 - Delivery Note Labor: Augmented by ARM, Augmented by Oxytocin Cervical Ripening Method: Misoprostil Delivery Outcome: Livebirth Infant Delivery Method: Spontaneous Vaginal Delivery-Single Delivery Mode: Spontaneous Presentation: Left Occiput Anterior (LEE) Nuchal Cord: None Anesthesia Type: Epidural Episiotomy Type: None Laceration: None (No perineal or vaginal lacerations noted.), Other (Scant periclitoral skin tear noted, hemostatic, not repaired.) Placenta: Intact, Spontaneous ([place], 3VC, intact, trailing membranes) Cord: 3 Vessels Estimated Blood Loss: 200 Resuscitation Needed: No [place]: Stimulated, Warmed, [place] Used Score 1 min: 8 Score 5 min: 9 Second Stage Interventions: Reports: Encouragement Given, Pushing Effectively, Pushing, Stirrups/Leg Supports Delivery Comments (Free Text/Narrative):: Martha is a 19 yo at 39.6 weeks gestation (KONSTANTIN 04/17/2020) S/P uncomplicated to viable, term, vigorous NBM with spontaneous cries at , LEE. NBM places to maternal chest, warmed, dried, stimulated. Umbilical cord left intact for 3.5 minutes, clamped x 2, cut by FOB. Placenta delivered spontaneously intact, Kapoor, 3VC, trailing membranes. Uterus firm @ U, small rubra lochia noted. Perinum and vaginal canal intact, scant periclitoral skin tear noted, hemostatic, not repaired. EBL 200 ml. Mother resting comfortably in bed, NBM to warmer for weight and measurements. Induction Criteria - Starks Score Starks Score Dilation: 1-2 cm Starks Score Effacement: 0-30% Starks Score Infant's Station: -1 ,0 Starks Score Consistency: Medium Starks Score Cervix Position: Midposition Starks Score Total: 5 Starks Score Presenting Part: Reports: Cephalic - Induction Gestational Age >/= 39 wks: Yes Estimated Pelvis: Reports: Adequate Reassuring Monitoring Strip: Yes Absence of Tachy Systole: Yes - Augmentation Estimated Pelvis: Reports: Adequate Weight Estimated:: Reports: AGA Reassuring Monitoring Strip: Yes Absence of Tachy Systole: Yes - General Info Date of Service: 04/16/20 Admission Dx/Problem (Free Text): Patient Status Order with Admit Dx/Problem 04/16/20 00:41 Patient Status [ADT] Routine Admission Diagnosis/Problem Admission Diagnosis/Problem 04/16/20 09:17 Martha is a 19 yo at 39.6 weeks gestation (KONSTANTIN 04/17/2020) that presents today for en elective induction of labor using cytotec to pitocin protocol, see new orders. O pos, RI, GBS neg. Functional Status: Reports: Pain Controlled (Epidural analgesia, comfortable.), Tolerating Diet - Review of Systems General: Reports: No Symptoms HEENT: Reports: No Symptoms Pulmonary: Reports: No Symptoms Cardiovascular: Reports: No Symptoms Gastrointestinal: Reports: No Symptoms Genitourinary: Reports: No Symptoms Musculoskeletal: Reports: No Symptoms Skin: Reports: No Symptoms Neurological: Reports: No Symptoms, Other (Epidural analgesia, BLE) Psychiatric: Reports: No Symptoms - Patient Data Vitals - Most Recent: BP 119/75, HR 91, T 98.2 F. Hemodynamically stable, afebrile. Weight - Most Recent: 178 lb Lab Results Last 24 Hours: Laboratory Results - last 24 hr 04/16/20 04/16/20 Range/Units 01:10 01:10 WBC 13.94 H (4.0-11.0) K/uL RBC 4.26 L (4.30-5.90) M/uL Hgb 10.7 L (12.0-16.0) g/dL Hct 33.6 L (36.0-46.0) % MCV 78.9 L (80.0-98.0) fL MCH 25.1 L (27.0-32.0) pg MCHC 31.8 (31.0-37.0) g/dL RDW Std Deviation 40.5 (28.0-62.0) fl RDW Coeff of Shira 15 (11.0-15.0) % Plt Count 278 (150-400) K/uL MPV 12.10 H (7.40-12.00) fL Blood Type O POSITIVE Antibody Screen NEGATIVE Med Orders - Current: Current Medications Acetaminophen (Tylenol Extra Strength) 500 mg PO Q4H PRN PRN Reason: Pain Acetaminophen (Tylenol Extra Strength) 1,000 mg PO Q4H PRN PRN Reason: Pain Benzocaine/Menthol (Dermoplast Pain Relief 20%-0.5% [place]) 78 gm TOP ASDIRECTED PRN PRN Reason: Perineal Comfort Measure Bisacodyl (Dulcolax) 10 mg RECTAL ONETIME PRN PRN Reason: Constipation Docusate Sodium (Colace) 100 mg PO BID PRN PRN Reason: Constipation Emollient Ointment (Lansinoh Hpa) 0 gm TOP ASDIRECTED PRN PRN Reason: Sore Nipples Ibuprofen (Motrin) 400 mg PO Q4H PRN PRN Reason: Pain Ibuprofen (Motrin) 800 mg PO Q6H PRN PRN Reason: Pain Oxycodone HCl (Oxycodone) 5 mg PO Q2H PRN PRN Reason: Pain Witch Wilma (Tucks) 1 pad TOP ASDIRECTED PRN PRN Reason: comfort care Discontinued Medications Butorphanol Tartrate (Stadol) 1 mg IVPUSH Q1H PRN PRN Reason: Pain Last Admin: 04/16/20 14:00 Dose: 1 mg Carboprost Tromethamine (Hemabate Ds) 250 mcg IM ASDIRECTED PRN PRN Reason: Post Hemorrhage Fentanyl (Sublimaze) Confirm Administered Dose 200 mcg .ROUTE .[facility] ONE Stop: 04/16/20 14:10 Lactated Ringer's (Ringers, Lactated) 1,000 mls @ 150 mls/hr IV ASDIRECTED PARTHA Last Admin: 04/16/20 15:38 Dose: 150 mls/hr Oxytocin/Sodium Chloride (Oxytocin 30 Unit/500 Ml-Ns) 30 unit in 500 mls @ 555 mls/hr IV TITRATE PARTHA Oxytocin/Sodium Chloride (Oxytocin 30 Unit/500 Ml-Ns) 30 unit in 500 mls @ 2 mls/hr IV TITRATE PARTHA; Protocol Last Titration: 04/16/20 17:10 Dose: 4 munits/min, 4 mls/hr Tranexamic Acid 1,000 mg/ (Sodium Chloride) 110 mls @ 660 mls/hr IV ONETIME PRN PRN Reason: Bleeding Ropivacaine (Naropin 0.2%) Confirm Administered Dose 100 mls @ as directed .ROUTE .[facility] ONE Stop: 04/16/20 14:11 Lidocaine HCl (Xylocaine 1%) 50 ml INJECT ONETIME PRN PRN Reason: Laceration repair Methylergonovine Maleate (Methergine) 0.2 mg IM ASDIRECTED PRN PRN Reason: Post Hemorrhage Misoprostol (Cytotec) 200 mcg PO ONETIME PRN PRN Reason: Post Hemorrhage Misoprostol (Cytotec) 25 mcg VAG ONETIME PRN PRN Reason: Cervical Ripening Last Admin: 04/16/20 01:37 Dose: 25 mcg Misoprostol (Cytotec) 25 mcg VAG Q4H PRN PRN Reason: Cervical Ripening Last Admin: 04/16/20 09:38 Dose: 25 mcg Misoprostol (Cytotec) 25 mcg PO ONETIME PRN PRN Reason: Cervical Ripening Last Admin: 04/16/20 01:37 Dose: 25 mcg Misoprostol (Cytotec) 25 mcg PO Q4H PRN PRN Reason: Cervical Ripening Last Admin: 04/16/20 09:39 Dose: 25 mcg Nalbuphine HCl (Nubain) 10 mg IVPUSH Q1H PRN PRN Reason: Pain (severe 7-10) Ondansetron HCl (Zofran) 4 mg IVPUSH Q4H PRN PRN Reason: Nausea/Vomiting Sodium Chloride (Saline Flush) 10 ml FLUSH ASDIRECTED PRN PRN Reason: Keep Vein Open Sodium Chloride (Saline Flush) 2.5 ml FLUSH ASDIRECTED PRN PRN Reason: Keep Vein Open Sodium Chloride (Normal Saline) 10 ml IV ASDIRECTED PRN PRN Reason: IV Use Sterile Water (Sterile Water For Irrigation) 1,000 ml IRR ASDIRECTED PRN PRN Reason: delivery Terbutaline Sulfate (Brethine) 0.25 mg SUBCUT ASDIRECTED PRN PRN Reason: Tacysystole - Exam General: Alert, Oriented, Cooperative, No Acute Distress HEENT: Pupils Equal, Pupils Reactive, Mucous Membr. Moist/[place] Neck: Supple Lungs: Clear to Auscultation, Normal Respiratory Effort Cardiovascular: Regular Rate, Regular Rhythm GI/Abdominal Exam: Normal Bowel Sounds, Soft, Non-Tender, No Organomegaly, No Distention (Female) Exam: Normal External Exam, Enlarged Uterus ( uterus, firm @ U), Vaginal Bleeding (Small rubra lochia.) Back Exam: Normal Inspection, Full Range of Motion Extremities: Normal Inspection, Normal Range of Motion, Non-Tender, No Pedal Edema, Normal Capillary Refill Skin: Warm, Dry, Intact Wound/Incisions: Healing Well Neurological: No New Focal Deficit, Other (Epidural analgesia, BLE) Psy/Mental Status: Alert, Normal Affect, Normal Mood - Problem List & Annotations (1) (normal spontaneous vaginal delivery) SNOMED Code(s): 07293086, 069678316 Code(s): O80 - ENCOUNTER FOR FULL-TERM UNCOMPLICATED DELIVERY Status: Acute Priority: High Current Visit: Yes (2) Lactating mother SNOMED Code(s): 289180650, 550159684 Code(s): Z39.1 - ENCOUNTER FOR CARE AND EXAMINATION OF LACTATING MOTHER Status: Acute Priority: High Current Visit: Yes - Problem List Review Problem List Initiated/Reviewed/Updated: Yes - My Orders Last 24 Hours: My Active Orders 04/16/20 19:17 Acetaminophen [Tylenol Extra Strength] 1,000 mg PO Q4H PRN Acetaminophen [Tylenol Extra Strength] 500 mg PO Q4H PRN Benzocaine/Menthol [Dermoplast Pain Relief 20%-0.5% [place]] 78 gm TOP ASDIRECTED PRN Docusate Sodium [Colace] 100 mg PO BID PRN Ibuprofen [Motrin] 400 mg PO Q4H PRN Ibuprofen [Motrin] 800 mg PO Q6H PRN Lanolin [Lansinoh HPA] See Dose Instructions TOP ASDIRECTED PRN bisacodyL [Dulcolax] 10 mg RECTAL ONETIME PRN oxyCODONE 5 mg PO Q2H PRN witch Wilma [Tucks] 1 pad TOP ASDIRECTED PRN Resuscitation Status Routine 04/16/20 19:18 Patient Status [ADT] Routine May Shower [RC] ASDIRECTED Up ad Maryana [RC] ASDIRECTED Vital Signs [RC] PER UNIT ROUTINE Assess Lochia [WOMSER] Per Unit Routine Assess Uterine Involution [WOMSER] Per Unit Routine Ice Therapy [OM.PC] Per Unit Routine Perineal Care [OM.PC] Per Unit Routine Peripheral IV Discontinue [OM.PC] Routine Sitz Bath [OM.PC] Per Unit Routine 04/16/20 19:19 Cooling Warming Measures [RC] ASDIRECTED 04/16/20 Dinner Regular Diet [DIET] - Plan Plan:: Martha is a 19 yo at 39.6 weeks gestation (KONSTANTIN 04/17/2020) S/P uncomplicated of viable, term, vigorous NBM. Admit to inpatient . Progress to routine POC S/P vaginal . Dr. Turner notified. See new orders.
[2020-04-17] MEDS: Ibuprofen 800 MG Tab PO PRN ×2 (03:42→14:18)
--- NOTE | 2020-04-17 07:01 | PCM48HPAN ---
Post Anesthesia Note - EVALUATION WITHIN 48HRS OF ANESTHETIC Vital Signs in Normal Range: Yes Patient Participated in Evaluation: Yes Respiratory Function Stable: Yes Airway Patent: Yes Cardiovascular Function Stable: Yes Hydration Status Stable: Yes Pain Control Satisfactory: Yes Nausea and Vomiting Control Satisfactory: Yes Mental Status Recovered: Yes Vital Signs: Last Vital Signs Temp 36.6 C 04/17/20 05:38 Pulse 95 04/17/20 05:38 Resp 16 04/17/20 05:38 BP 104/62 04/17/20 05:38 Pulse Ox 96 04/17/20 05:38
--- NOTE | 2020-04-17 10:57 | PCM.PNPP ---
- General Info Date of Service: 04/17/20 Admission Dx/Problem (Free Text): Patient Status Order with Admit Dx/Problem 04/16/20 00:41 Patient Status [ADT] Routine Admission Diagnosis/Problem Admission Diagnosis/Problem 04/16/20 09:17 Martha is a 19 yo at 39.6 weeks gestation ([facility] 04/17/2020) PPD 0 S/P uncomplicated to viable, term, vigorous NBM. O pos, RI, GBS neg. Patient reports she is doing well, has no questions or concerns at this time. Functional Status: Reports: Pain Controlled - Review of Systems General: Reports: Fatigue (Mild fatigue) HEENT: Reports: No Symptoms Pulmonary: Reports: No Symptoms Cardiovascular: Reports: No Symptoms Gastrointestinal: Reports: No Symptoms Genitourinary: Reports: No Symptoms Musculoskeletal: Reports: No Symptoms Skin: Reports: No Symptoms Neurological: Reports: No Symptoms Psychiatric: Reports: No Symptoms - General Info Date of Service: 04/17/20 - Patient Data Vital Signs - Most Recent: Last Vital Signs Temp 96.8 F L 04/17/20 07:59 Pulse 80 04/17/20 08:24 Resp 16 04/17/20 07:59 BP 108/62 04/17/20 08:24 Pulse Ox 98 04/17/20 07:59 Weight - Most Recent: 178 lb Lab Results - Last 24 Hours: Laboratory Results - last 24 hr 04/17/20 Range/Units 08:29 POC Glucose 77 (60-110) mg/dL Med Orders - Current: Current Medications Acetaminophen (Tylenol Extra Strength) 500 mg PO Q4H PRN PRN Reason: Pain Last Admin: 04/17/20 06:44 Dose: 500 mg Acetaminophen (Tylenol Extra Strength) 1,000 mg PO Q4H PRN PRN Reason: Pain Benzocaine/Menthol (Dermoplast Pain Relief 20%-0.5% [place]) 0 gm TOP ASDIRECTED PRN PRN Reason: Perineal Comfort Measure Last Admin: 04/16/20 21:04 Dose: 1 canister Bisacodyl (Dulcolax) 10 mg RECTAL ONETIME PRN PRN Reason: Constipation Docusate Sodium (Colace) 100 mg PO BID PRN PRN Reason: Constipation Emollient Ointment (Lansinoh Hpa) 0 gm TOP ASDIRECTED PRN PRN Reason: Sore Nipples Ibuprofen (Motrin) 400 mg PO Q4H PRN PRN Reason: Pain Ibuprofen (Motrin) 800 mg PO Q6H PRN PRN Reason: Pain Last Admin: 04/17/20 03:42 Dose: 800 mg Oxycodone HCl (Oxycodone) 5 mg PO Q2H PRN PRN Reason: Pain Last Admin: 04/17/20 06:42 Dose: 5 mg Witch Wilma (Tucks) 1 pad TOP ASDIRECTED PRN PRN Reason: comfort care Last Admin: 04/16/20 21:04 Dose: 1 tub Discontinued Medications Butorphanol Tartrate (Stadol) 1 mg IVPUSH Q1H PRN PRN Reason: Pain Last Admin: 04/16/20 14:00 Dose: 1 mg Carboprost Tromethamine (Hemabate Ds) 250 mcg IM ASDIRECTED PRN PRN Reason: Post Hemorrhage Fentanyl (Sublimaze) Confirm Administered Dose 200 mcg .ROUTE .[place]-MED ONE Stop: 04/16/20 14:10 Lactated Ringer's (Ringers, Lactated) 1,000 mls @ 150 mls/hr IV ASDIRECTED PARTHA Last Admin: 04/16/20 15:38 Dose: 150 mls/hr Oxytocin/Sodium Chloride (Oxytocin 30 Unit/500 Ml-Ns) 30 unit in 500 mls @ 555 mls/hr IV TITRATE PARTHA Oxytocin/Sodium Chloride (Oxytocin 30 Unit/500 Ml-Ns) 30 unit in 500 mls @ 2 mls/hr IV TITRATE PARTHA; Protocol Last Titration: 04/16/20 17:10 Dose: 4 munits/min, 4 mls/hr Tranexamic Acid 1,000 mg/ (Sodium Chloride) 110 mls @ 660 mls/hr IV ONETIME PRN PRN Reason: Bleeding Ropivacaine (Naropin 0.2%) Confirm Administered Dose 100 mls @ as directed .ROUTE .[employer]-MED ONE Stop: 04/16/20 14:11 Lidocaine HCl (Xylocaine 1%) 50 ml INJECT ONETIME PRN PRN Reason: Laceration repair Methylergonovine Maleate (Methergine) 0.2 mg IM ASDIRECTED PRN PRN Reason: Post Hemorrhage Misoprostol (Cytotec) 200 mcg PO ONETIME PRN PRN Reason: Post Hemorrhage Misoprostol (Cytotec) 25 mcg VAG ONETIME PRN PRN Reason: Cervical Ripening Last Admin: 04/16/20 01:37 Dose: 25 mcg Misoprostol (Cytotec) 25 mcg VAG Q4H PRN PRN Reason: Cervical Ripening Last Admin: 04/16/20 09:38 Dose: 25 mcg Misoprostol (Cytotec) 25 mcg PO ONETIME PRN PRN Reason: Cervical Ripening Last Admin: 04/16/20 01:37 Dose: 25 mcg Misoprostol (Cytotec) 25 mcg PO Q4H PRN PRN Reason: Cervical Ripening Last Admin: 04/16/20 09:39 Dose: 25 mcg Nalbuphine HCl (Nubain) 10 mg IVPUSH Q1H PRN PRN Reason: Pain (severe 7-10) Ondansetron HCl (Zofran) 4 mg IVPUSH Q4H PRN PRN Reason: Nausea/Vomiting Sodium Chloride (Saline Flush) 10 ml FLUSH ASDIRECTED PRN PRN Reason: Keep Vein Open Sodium Chloride (Saline Flush) 2.5 ml FLUSH ASDIRECTED PRN PRN Reason: Keep Vein Open Sodium Chloride (Normal Saline) 10 ml IV ASDIRECTED PRN PRN Reason: IV Use Sterile Water (Sterile Water For Irrigation) 1,000 ml IRR ASDIRECTED PRN PRN Reason: delivery Terbutaline Sulfate (Brethine) 0.25 mg SUBCUT ASDIRECTED PRN PRN Reason: Tacysystole - Interaction Infant Disposition, : in Room with Family Interaction: Holding Infant Infant Feeding: Attempted ; Nursed Fair/Poor Support Person: Significant Other - Recovery Exam Fundal Tone: Firm Fundal Level: 1 Fingerbreadths Below Umbilicus Fundal Placement: Midline Lochia Amount: Scant, Small Lochia Color: Rubra/Red Perineum Description: Intact, Minimal Bruising/Swelling Episiotomy/Laceration: None Bladder Status: Voiding (Denies dysuria) - Exam General: Alert, Oriented, Cooperative, No Acute Distress HEENT: Pupils Equal, Pupils Reactive, Mucous Membr. Moist/[place] Neck: Supple Lungs: Clear to Auscultation, Normal Respiratory Effort Cardiovascular: Regular Rate, Regular Rhythm GI/Abdominal Exam: Normal Bowel Sounds, Soft, Non-Tender, No Organomegaly, No Distention Extremities: Normal Inspection, Normal Range of Motion, Non-Tender, No Pedal Edema, Normal Capillary Refill, Pedal Edema (Non-pitting) Skin: Warm, Dry, Intact Wound/Incisions: Healing Well Neurological: No New Focal Deficit Psy/Mental Status: Alert, Normal Affect, Normal Mood - Problem List & Annotations (1) (normal spontaneous vaginal delivery) SNOMED Code(s): 72065451, 444119910 Code(s): O80 - ENCOUNTER FOR FULL-TERM UNCOMPLICATED DELIVERY Status: Acute Priority: High Current Visit: Yes (2) Lactating mother SNOMED Code(s): 050954435, 541278998 Code(s): Z39.1 - ENCOUNTER FOR CARE AND EXAMINATION OF LACTATING MOTHER Status: Acute Priority: High Current Visit: Yes - Problem List Review Problem List Initiated/Reviewed/Updated: Yes - My Orders Last 24 Hours: My Active Orders 04/16/20 19:17 Acetaminophen [Tylenol Extra Strength] 1,000 mg PO Q4H PRN Acetaminophen [Tylenol Extra Strength] 500 mg PO Q4H PRN Benzocaine/Menthol [Dermoplast Pain Relief 20%-0.5% [place]] 0 gm TOP ASDIRECTED PRN Docusate Sodium [Colace] 100 mg PO BID PRN Ibuprofen [Motrin] 400 mg PO Q4H PRN Ibuprofen [Motrin] 800 mg PO Q6H PRN Lanolin [Lansinoh HPA] See Dose Instructions TOP ASDIRECTED PRN bisacodyL [Dulcolax] 10 mg RECTAL ONETIME PRN oxyCODONE 5 mg PO Q2H PRN witch Wilma [Tucks] 1 pad TOP ASDIRECTED PRN Resuscitation Status Routine 04/16/20 19:18 Patient Status [ADT] Routine Up ad Maryana [RC] ASDIRECTED Vital Signs [RC] PER UNIT ROUTINE Assess Lochia [WOMSER] Per Unit Routine Assess Uterine Involution [WOMSER] Per Unit Routine Ice Therapy [OM.PC] Per Unit Routine Perineal Care [OM.PC] Per Unit Routine Peripheral IV Discontinue [OM.PC] Routine Sitz Bath [OM.PC] Per Unit Routine 04/16/20 Dinner Regular Diet [DIET] - Plan Plan:: Martha is a 19 yo at 39.6 weeks gestation ([facility] 04/17/2020) PPD 0 S/P uncomplicated of viable, term, vigorous NBM. well. Hemodynamically stable, abefrile. Ambulating, voiding, eating independently and without problems. Pain well controlled. Continue routine POC S/ P vaginal . 24-hour assessment and labs to be completed this PM. Patient expressed desire to be discharged home today if possible pending results. Dr. Turner notified and agreeable to POC.
--- NOTE | 2020-04-17 20:18 | PCM.DCSUM1 ---
Discharge Summary - Hospital Course Free Text/Narrative:: Martha is a 19 yo at 39.6 weeks gestation ([facility] 04/17/2020) PPD 1 S/P uncomplicated of viable, term, vigorous NBM. Bottle-feeding well, patient does not desire to continue and pumping. Hemodynamically stable, abefrile. Ambulating, voiding, eating independently and without problems. Pain well controlled. 24-hour assessment and labs completed this PM, NBM D/Cd home. Patient expressed desire to be discharged home this PM also. Dr. Turner notified and agreeable to POC. Diagnosis: Stroke: No - Discharge Data Discharge Date: 04/17/20 Discharge Disposition: Home, Self-Care 01 Condition: Good - Referral to Home Health Primary Care Physician: PCP None - Discharge Diagnosis/Problem(s) (1) (normal spontaneous vaginal delivery) SNOMED Code(s): 33169848, [id number] ICD Code: O80 - ENCOUNTER FOR FULL-TERM UNCOMPLICATED DELIVERY Status: Acute Priority: High Current Visit: Yes - Patient Instructions Diet: Usual Diet as Tolerated, Regular Diet as Tolerated, Drink 8-10+ Glasses/ Day Activity: As Tolerated, No Strenuous Activities Driving: May Drive Today Showering/Bathing: May Shower Showering/Bathing, Other: May utilize sitz baths for perineal comfort Notify Provider of: Fever, Increased Pain, Swelling and Redness, Drainage, Nausea and/or Vomiting - Discharge Plan *PRESCRIPTION DRUG MONITORING PROGRAM REVIEWED*: No *COPY OF PRESCRIPTION DRUG MONITORING REPORT IN PATIENT JENIFER: No Prescriptions/Med Rec: Ibuprofen [Motrin] 800 mg PO Q8H PRN #90 tablet PRN Reason: Pain Home Medications: Home Meds Vits #93/Iron Fum/FA [ Formula Tablet] 1 each PO DAILY [History] buPROPion [Wellbutrin SR] 100 mg PO DAILY 10/30/19 [History] Ibuprofen [Motrin] 800 mg PO Q8H PRN #90 tablet 04/17/20 [Rx] Oxygen Therapy Mode: Room Air - Discharge Summary/Plan Comment DC Time >30 min.: No (March D/C home now.) - General Info Date of Service: 04/17/20 Admission Dx/Problem (Free Text: Patient Status Order with Admit Dx/Problem 04/16/20 00:41 Patient Status [ADT] Routine Admission Diagnosis/Problem Admission Diagnosis/Problem 04/16/20 09:17 Martha is a 19 yo at 39.6 weeks gestation ([facility] 04/17/2020) PPD 0 S/P uncomplicated to viable, term, vigorous NBM. O pos, RI, GBS neg. Patient reports she is doing well, has no questions or concerns at this time. Functional Status: Reports: Pain Controlled - Review of Systems General: Reports: No Symptoms HEENT: Reports: No Symptoms Pulmonary: Reports: No Symptoms Cardiovascular: Reports: No Symptoms Gastrointestinal: Reports: No Symptoms Genitourinary: Reports: Other (Intermittent mild-moderate uterine cramping) Musculoskeletal: Reports: No Symptoms Skin: Reports: No Symptoms Neurological: Reports: No Symptoms Psychiatric: Reports: No Symptoms - Patient Data Vitals - Most Recent: Last Vital Signs Temp 97.1 F 04/17/20 16:01 Pulse 88 04/17/20 16:01 Resp 16 04/17/20 16:01 BP 106/62 04/17/20 16:01 Pulse Ox 97 04/17/20 16:01 Weight - Most Recent: 178 lb Lab Results - Last 24 hrs: Laboratory Results - last 24 hr 04/17/20 Range/Units 08:29 POC Glucose 77 (60-110) mg/dL Med Orders - Current: Current Medications Acetaminophen (Tylenol Extra Strength) 500 mg PO Q4H PRN PRN Reason: Pain Last Admin: 04/17/20 06:44 Dose: 500 mg Acetaminophen (Tylenol Extra Strength) 1,000 mg PO Q4H PRN PRN Reason: Pain Benzocaine/Menthol (Dermoplast Pain Relief 20%-0.5% [place]) 0 gm TOP ASDIRECTED PRN PRN Reason: Perineal Comfort Measure Last Admin: 04/16/20 21:04 Dose: 1 canister Bisacodyl (Dulcolax) 10 mg RECTAL ONETIME PRN PRN Reason: Constipation Docusate Sodium (Colace) 100 mg PO BID PRN PRN Reason: Constipation Emollient Ointment (Lansinoh Hpa) 0 gm TOP ASDIRECTED PRN PRN Reason: Sore Nipples Ibuprofen (Motrin) 400 mg PO Q4H PRN PRN Reason: Pain Ibuprofen (Motrin) 800 mg PO Q6H PRN PRN Reason: Pain Last Admin: 04/17/20 14:18 Dose: 800 mg Oxycodone HCl (Oxycodone) 5 mg PO Q2H PRN PRN Reason: Pain Last Admin: 04/17/20 06:42 Dose: 5 mg Witch Wilma (Tucks) 1 pad TOP ASDIRECTED PRN PRN Reason: comfort care Last Admin: 04/16/20 21:04 Dose: 1 tub Discontinued Medications Butorphanol Tartrate (Stadol) 1 mg IVPUSH Q1H PRN PRN Reason: Pain Last Admin: 04/16/20 14:00 Dose: 1 mg Carboprost Tromethamine (Hemabate Ds) 250 mcg IM ASDIRECTED PRN PRN Reason: Post Hemorrhage Fentanyl (Sublimaze) Confirm Administered Dose 200 mcg .ROUTE .[employer]-MED ONE Stop: 04/16/20 14:10 Lactated Ringer's (Ringers, Lactated) 1,000 mls @ 150 mls/hr IV ASDIRECTED PARTHA Last Admin: 04/16/20 15:38 Dose: 150 mls/hr Oxytocin/Sodium Chloride (Oxytocin 30 Unit/500 Ml-Ns) 30 unit in 500 mls @ 555 mls/hr IV TITRATE PARTHA Oxytocin/Sodium Chloride (Oxytocin 30 Unit/500 Ml-Ns) 30 unit in 500 mls @ 2 mls/hr IV TITRATE PARTHA; Protocol Last Titration: 04/16/20 17:10 Dose: 4 munits/min, 4 mls/hr Tranexamic Acid 1,000 mg/ (Sodium Chloride) 110 mls @ 660 mls/hr IV ONETIME PRN PRN Reason: Bleeding Ropivacaine (Naropin 0.2%) Confirm Administered Dose 100 mls @ as directed .ROUTE .[employer]-MED ONE Stop: 04/16/20 14:11 Lidocaine HCl (Xylocaine 1%) 50 ml INJECT ONETIME PRN PRN Reason: Laceration repair Methylergonovine Maleate (Methergine) 0.2 mg IM ASDIRECTED PRN PRN Reason: Post Hemorrhage Misoprostol (Cytotec) 200 mcg PO ONETIME PRN PRN Reason: Post Hemorrhage Misoprostol (Cytotec) 25 mcg VAG ONETIME PRN PRN Reason: Cervical Ripening Last Admin: 04/16/20 01:37 Dose: 25 mcg Misoprostol (Cytotec) 25 mcg VAG Q4H PRN PRN Reason: Cervical Ripening Last Admin: 04/16/20 09:38 Dose: 25 mcg Misoprostol (Cytotec) 25 mcg PO ONETIME PRN PRN Reason: Cervical Ripening Last Admin: 04/16/20 01:37 Dose: 25 mcg Misoprostol (Cytotec) 25 mcg PO Q4H PRN PRN Reason: Cervical Ripening Last Admin: 04/16/20 09:39 Dose: 25 mcg Nalbuphine HCl (Nubain) 10 mg IVPUSH Q1H PRN PRN Reason: Pain (severe 7-10) Ondansetron HCl (Zofran) 4 mg IVPUSH Q4H PRN PRN Reason: Nausea/Vomiting Sodium Chloride (Saline Flush) 10 ml FLUSH ASDIRECTED PRN PRN Reason: Keep Vein Open Sodium Chloride (Saline Flush) 2.5 ml FLUSH ASDIRECTED PRN PRN Reason: Keep Vein Open Sodium Chloride (Normal Saline) 10 ml IV ASDIRECTED PRN PRN Reason: IV Use Sterile Water (Sterile Water For Irrigation) 1,000 ml IRR ASDIRECTED PRN PRN Reason: delivery Terbutaline Sulfate (Brethine) 0.25 mg SUBCUT ASDIRECTED PRN PRN Reason: Tacysystole - Exam General: Reports: Alert, Oriented, Cooperative, No Acute Distress HEENT: Reports: Pupils Equal, Pupils Reactive, EOMI, Mucous Membr. Moist/[place] Neck: Reports: Supple Lungs: Reports: Clear to Auscultation, Normal Respiratory Effort Cardiovascular: Reports: Regular Rate, Regular Rhythm GI/Abdominal Exam: Normal Bowel Sounds, Soft, Non-Tender, No Organomegaly, No Distention (Female) Exam: Normal External Exam, Enlarged Uterus (Uterus firm U-2), Vaginal Bleeding (Small rubra lochia, no clots) Rectal (Female) Exam: Deferred Back Exam: Reports: Normal Inspection, Full Range of Motion Extremities: Normal Inspection, Normal Range of Motion, Non-Tender, No Pedal Edema, Normal Capillary Refill Skin: Reports: Warm, Dry, Intact Neurological: Reports: No New Focal Deficit Psy/Mental Status: Reports: Alert, Normal Affect, Normal Mood
[2020-04-18 01:44] VITALS: BP 117/65; PULSE 92
== END 2020-04-17 21:20 | disposition home or self-care (01) | DRG 560 ==
LOC: MW.OB 00:10 → MW.OBCHECK 00:10 → MW.OB 00:41 → OBSVTOIN 19:18 → MW.OB 23:40
PROVIDERS: ADMIT Obstetrics & Gynecology; ATTEND Obstetrics & Gynecology
PROC: 3E0P7VZ Introduction of Hormone into Female Reproductive, Via Natural or Artificial Opening (ICD-10-PCS; principal; 2020-04-16)
PROC: 10907ZC Drainage of Amniotic Fluid, Therapeutic from Products of Conception, Via Natural or Artificial Opening (ICD-10-PCS; 2020-04-16)
PROC: 10E0XZZ Delivery of Products of Conception, External Approach (ICD-10-PCS; 2020-04-16)
PROC: 3E0R3BZ Introduction of Anesthetic Agent into Spinal Canal, Percutaneous Approach (ICD-10-PCS; 2020-04-16)
PROC: 00HU33Z Insertion of Infusion Device into Spinal Canal, Percutaneous Approach (ICD-10-PCS; 2020-04-16)
DX: O99.344 Other mental disorders complicating childbirth (principal); Z3A.39 39 weeks gestation of pregnancy; Z37.0 Single live birth; F41.9 Anxiety disorder, unspecified; F32.9 Major depressive disorder, single episode, unspecified
CPT/HCPCS: 36415; 51702; 59025; 59409; 82962; 85027; 86592; 86593; 86850; 86900; 86901; A9270-GY; J0595; J2590; J2795; J3010; J7120

== ENCOUNTER 2021-10-03 00:16 | Inpatient (IN) | payer SELFPAY ==
[2021-10-03] MEDS: Lactated Ringers 1,000 ML IV SCH ×3 (00:49→11:54)
[2021-10-03] MEDS ORDERED: Sodium Chloride 0.9% 2.5 ML Syringe FLUSH PRN (01:01)
[2021-10-03] MEDS ORDERED: Terbutaline 1 MG/ML SDV SUBCUT PRN (01:01)
[2021-10-03] MEDS ORDERED: Butorphanol 1 MG/ML SDV IVPUSH PRN (01:01)
[2021-10-03] MEDS ORDERED: Methylergonovine 0.2 MG/1 ML Amp IM PRN (01:01)
[2021-10-03] MEDS ORDERED: Misoprostol 200 MCG Tab PO PRN (01:01)
[2021-10-03] MEDS ORDERED: Water For Irrigation,Sterile 1,000 ML Container IRR PRN (01:01)
[2021-10-03] MEDS ORDERED: Sodium Chloride 0.9% 10 ML Syringe FLUSH PRN (01:01)
[2021-10-03] MEDS ORDERED: Misoprostol 25 MCG (1/4 of 100 MCG) Tab VAG PRN ×2 (01:01)
[2021-10-03] MEDS ORDERED: Lidocaine 1% 50 ML MDV INJECT PRN (01:01)
[2021-10-03] MEDS ORDERED: Carboprost Tromethamine 250 MCG/1 ML Amp IM PRN (01:01)
[2021-10-03] MEDS ORDERED: Sodium Chloride 0.9% 20 ML SDV IV PRN (01:01)
[2021-10-03] MEDS ORDERED: Tranexamic Acid 1,000 MG in Sodium Chloride 0.9% 100 ML IV PRN (01:01)
[2021-10-03] MEDS ORDERED: Misoprostol 25 MCG (1/4 of 100 MCG) Tab PO ONE ×2 (01:06→05:40)
[2021-10-03] MEDS ORDERED: Oxytocin/0.9 % Sodium Chloride 30 UNIT/500 ML BAG IV SCH ×2 (01:15)
[2021-10-03] MEDS: Nalbuphine 10 MG/1 ML Vial IVPUSH PRN ×2 (05:54→11:35)
--- NOTE | 2021-10-03 08:34 | PCM.LDHP ---
L&D History of Present Illness - General Date of Service: 10/03/21 Admit Problem/Dx: Patient Status Order with Admit Dx/Problem 10/03/21 01:02 Patient Status [ADT] Routine Admission Diagnosis/Problem Admission Diagnosis/Problem Source of Information: Patient History Limitations: Reports: No Limitations - History of Present Illness Pain Score: 7 Improves with: Reports: None Worsens with: Reports: None Associated Symptoms: Reports: N - Related Data Allergies/Adverse Reactions: Allergies Allergy/AdvReac Type Severity Reaction Status Date / Time No Known Allergies Allergy Verified 08/28/21 01:12 Home Medications: Home Meds Vits #93/Iron Fum/FA [ Formula Tablet] 1 each PO DAILY 03/25/18 [History] Ibuprofen [Motrin] 800 mg PO Q8H PRN #90 tablet 04/17/20 [Rx] metroNIDAZOLE [Flagyl] 500 mg PO BID 08/28/21 [History] Past Medical History - Past Health History Medical/Surgical History: Denies Medical/Surgical History HEENT History: Reports: Impaired Vision Cardiovascular History: Reports: None Respiratory History: Reports: None Gastrointestinal History: Reports: None Genitourinary History: Reports: None 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 Cardiovascular Surgical History: Reports: None Respiratory Surgical History: Reports: None GI Surgical History: Reports: None Female Surgical History: Reports: Other (See Below) Other Female Surgeries/Procedures: Vaginal stitches in childhood after falling on playground equipment. Endocrine Surgical History: Reports: None Neurological Surgical History: Reports: None Musculoskeletal Surgical History: Reports: None Other Musculoskeletal Surgeries/Procedures:: Pt states had a "shattered pelvis" at age 10 r/t falling off dome style monkey bars, states only rcv'd stitches. Dermatological Surgical History: Reports: None Social & Family History - Family History Family Medical History: No Pertinent Family History Cardiac: Reports: Other (See Below) Other Cardiac Family History: heart disease Respiratory: Reports: Asthma : Reports: Pyelonephritis, Renal Calculus, UTI, Recurrent OBGYN: Reports: Psychiatric: Reports: ADHD, Anxiety, Depression, Panic Attack, PTSD Endocrine/Metabolic: Reports: Diabetes, type II, Hyperthyroidism Immunologic: Reports: Other (See Below) Other Immunologic Family History: Saracoidus Oncologic: Reports: Cervix, Skin, Other (See Below) Other Oncologic Family History: Throat - Tobacco Use Tobacco Use Status *Q: Never Tobacco User Second Hand Smoke Exposure: No - Caffeine Use Caffeine Use: Reports: Coffee, Soda - Recreational Drug Use Recreational Drug Use: No H&P Review of Systems - Review of Systems: Review Of Systems: See Below General: Reports: No Symptoms HEENT: Reports: No Symptoms Pulmonary: Reports: No Symptoms Cardiovascular: Reports: No Symptoms Gastrointestinal: Reports: No Symptoms Genitourinary: Reports: No Symptoms Musculoskeletal: Reports: No Symptoms Skin: Reports: No Symptoms Psychiatric: Reports: No Symptoms Neurological: Reports: No Symptoms Hematologic/Lymphatic: Reports: No Symptoms Immunologic: Reports: No Symptoms L&D Exam - Exam Exam: See Below - Vital Signs Vital Signs: Last Vital Signs Temp 36.3 C 10/03/21 01:02 Pulse 95 10/03/21 01:02 Resp 18 10/03/21 01:02 BP 119/71 10/03/21 01:02 Pulse Ox 99 10/03/21 01:02 Weight: 85.275 kg - OB Specific Contraction Intensity: Moderate Movement: Active Heart Tones: Present Presentation: Vertex - Starks Score Starks Score Cervix Position: Midposition Starks Score Consistency: Soft Starks Score Effacement: 51-70% Starks Score Dilation: 1-2 cm Starks Score Infant's Station: -2 Starks Score Total: 7 - Exam General: Alert, Oriented HEENT: PERRLA, Conjunctiva Clear, EACs Clear, EOMI, Hearing Intact, Mucosa Moist & [place], Nares Patent, Normal Nasal Septum, Posterior Pharynx Clear, TMs Clear Neck: Supple, Trachea Midline Lungs: Clear to Auscultation, Normal Respiratory Effort Cardiovascular: Regular Rate, Regular Rhythm GI/Abdominal Exam: Normal Bowel Sounds, Soft, Non-Tender, No Organomegaly, No Distention, No Abnormal Bruit, No Mass, Pelvis Stable Rectal Exam: Normal Exam, Normal Rectal Tone Genitourinary: Normal external exam, Normal bimanual exam, Normal speculum exam Back Exam: Normal Inspection, Full Range of Motion Extremities: Normal Inspection, Normal Range of Motion, Non-Tender, No Pedal Edema, Normal Capillary Refill Skin: Warm, Dry, Intact Neurological: Cranial Nerves Intact, Reflexes Equal Bilateral Psychiatric: Alert, Normal Affect, Normal Mood - Patient Data Lab Results Last 24 hrs: Laboratory Results - last 24 hr 10/03/21 10/03/21 10/03/21 Range/Units 00:40 00:49 00:49 WBC 12.21 H (4.0-11.0) K/uL RBC 4.03 L (4.30-5.90) M/uL Hgb 8.7 L (12.0-16.0) g/dL Hct 28.3 L (36.0-46.0) % MCV 70.2 L (80.0-98.0) fL MCH 21.6 L (27.0-32.0) pg MCHC 30.7 L (31.0-37.0) g/dL RDW Std Deviation 41.2 (28.0-62.0) fl RDW Coeff of Shira 16 H (11.0-15.0) % Plt Count 294 (150-400) K/uL MPV 10.80 (7.40-12.00) fL Nucleated RBC % 0.0 /100WBC Nucleated RBCs # 0 K/uL SARS-CoV-2 RNA (UMA) NEGATIVE (NEGATIVE) Blood Type O POSITIVE Antibody Screen NEGATIVE Result Diagrams: 10/03/21 00:49 Problem List Initiated/Reviewed/Updated: Yes Orders Last 24hrs: Active Orders 24 hr Category Date Time Status Patient Status [ADT] Routine ADT 10/03/21 01:02 Active Bedrest Bathroom Privileges [RC] ASDIRECTED Care 10/03/21 01:02 Active Communication Order [RC] ASDIRECTED Care 10/03/21 01:02 Active Communication Order [RC] ASDIRECTED Care 10/03/21 01:02 Active Communication Order [RC] ASDIRECTED Care 10/03/21 01:02 Active Non Stress Test [RC] PER UNIT ROUTINE Care 10/03/21 01:02 Active May Shower [RC] ASDIRECTED Care 10/03/21 01:02 Active Notify Provider [RC] PRN Care 10/03/21 01:02 Active Notify Provider [RC] PRN Care 10/03/21 01:02 Active Notify Provider [RC] PRN Care 10/03/21 01:02 Active Notify Provider [RC] STAT Care 10/03/21 01:02 Active Oxygen Therapy [RC] ASDIRECTED Care 10/03/21 01:02 Active Up ad Maryana [RC] ASDIRECTED Care 10/03/21 01:02 Active Vital Signs [RC] PER UNIT ROUTINE Care 10/03/21 01:02 Active Vital Signs [RC] PER UNIT ROUTINE Care 10/03/21 01:02 Active Clear Liquid Diet [DIET] Diet 10/03/21 Breakfast Active RPR (SYPHILIS SERO) W/ RFLX [REF] Routine Lab 10/03/21 00:49 Received Butorphanol [Stadol] Med 10/03/21 01:01 Active 1 mg IVPUSH Q1H PRN Carboprost Tromethamine [Hemabate DS] Med 10/03/21 01:01 Active 250 mcg IM ASDIRECTED PRN Lactated Ringers [Ringers, Lactated] 1,000 ml Med 10/03/21 01:15 Active IV ASDIRECTED Lidocaine 1% [Xylocaine 1%] Med 10/03/21 01:01 Active 50 ml INJECT ONETIME PRN Methylergonovine [Methergine] Med 10/03/21 01:01 Active 0.2 mg IM ASDIRECTED PRN Nalbuphine [Nubain] Med 10/03/21 01:01 Active 10 mg IVPUSH Q1H PRN Oxytocin/0.9 % Sodium Chloride [Oxytocin 30 Unit in NS Med 10/03/21 01:15 Active 0.9% 500 ML Premix] 30 unit in 500 ml IV TITRATE Oxytocin/0.9 % Sodium Chloride [Oxytocin 30 Unit in NS Med 10/03/21 01:15 Active 0.9% 500 ML Premix] 30 unit in 500 ml IV TITRATE Sodium Chloride 0.9% [Normal Saline] Med 10/03/21 01:01 Active 10 ml IV ASDIRECTED PRN Sodium Chloride 0.9% [Saline Flush] Med 10/03/21 01:01 Active 10 ml FLUSH ASDIRECTED PRN Sodium Chloride 0.9% [Saline Flush] Med 10/03/21 01:01 Active 2.5 ml FLUSH ASDIRECTED PRN Terbutaline [Brethine] Med 10/03/21 01:01 Active 0.25 mg SUBCUT ASDIRECTED PRN Tranexamic Acid [Cyklokapron] 1,000 mg Med 10/03/21 01:01 Active Sodium Chloride 0.9% [Normal Saline] 100 ml IV ONETIME Water For Irrigation,Sterile [Sterile Water for Med 10/03/21 01:01 Active Irrigation] 1,000 ml IRR ASDIRECTED PRN miSOPROStoL [Cytotec] Med 10/03/21 01:01 Active 200 mcg PO ONETIME PRN miSOPROStoL [Cytotec] Med 10/03/21 01:01 Active 25 mcg VAG ONETIME PRN miSOPROStoL [Cytotec] Med 10/03/21 01:01 Active 25 mcg VAG Q4H PRN Scalp Electrode [WOMSER] Per Unit Routine Oth 10/03/21 01:02 Ordered Medication Administration Instruction [OM.PC] Q3H Oth 10/03/21 01:15 Ordered Peripheral IV Insertion Adult [OM.PC] Routine Oth 10/03/21 01:02 Ordered Resuscitation Status Routine Resus Stat 10/03/21 01:01 Ordered Medication Orders Butorphanol Tartrate (Butorphanol 1 Mg/Ml Sdv) 1 mg IVPUSH Q1H PRN PRN Reason: Pain (severe 7-10) Carboprost Tromethamine (Carboprost Tromethamine 250 Mcg/1 Ml Amp) 250 mcg IM ASDIRECTED PRN PRN Reason: Post Hemorrhage Oxytocin/Sodium Chloride (Oxytocin 30 Unit In Ns 0.9% 500 Ml Premix) 30 unit in 500 mls @ 999 mls/hr IV TITRATE PARTHA Tranexamic Acid 1,000 mg/ (Sodium Chloride) 110 mls @ 660 mls/hr IV ONETIME PRN PRN Reason: Bleeding Oxytocin/Sodium Chloride (Oxytocin 30 Unit In Ns 0.9% 500 Ml Premix) 30 unit in 500 mls @ 2 mls/hr IV TITRATE PARTHA; Protocol Lactated Ringer's (Ringers, Lactated) 1,000 mls @ 150 mls/hr IV ASDIRECTED PARTHA Last Admin: 10/03/21 05:48 Dose: 150 mls/hr Documented by: Infusion: 10/03/21 05:48 Dose: 150 mls/hr Documented by: Admin: 10/03/21 00:49 Dose: 150 mls/hr Documented by: EVERETT Lidocaine HCl (Lidocaine 1% 50 Ml Mdv) 50 ml INJECT ONETIME PRN PRN Reason: Laceration repair Methylergonovine Maleate (Methylergonovine 0.2 Mg/1 Ml Amp) 0.2 mg IM ASDIRECTED PRN PRN Reason: Post Hemorrhage Misoprostol (Misoprostol 200 Mcg Tab) 200 mcg PO ONETIME PRN PRN Reason: Post Hemorrhage Misoprostol (Misoprostol 25 Mcg (1/4 Of 100 Mcg) Tab) 25 mcg VAG ONETIME PRN PRN Reason: Cervical Ripening Last Admin: 10/03/21 06:42 Dose: 25 mcg Documented by: EVERETT Misoprostol (Misoprostol 25 Mcg (1/4 Of 100 Mcg) Tab) 25 mcg VAG Q4H PRN PRN Reason: Cervical Ripening Last Admin: 10/03/21 01:38 Dose: 25 mcg Documented by: EVERETT Nalbuphine HCl (Nalbuphine 10 Mg/1 Ml Vial) 10 mg IVPUSH Q1H PRN PRN Reason: Pain (severe 7-10) Last Admin: 10/03/21 05:54 Dose: 10 mg Documented by: EVERETT Sodium Chloride (Sodium Chloride 0.9% 10 Ml Syringe) 10 ml FLUSH ASDIRECTED PRN PRN Reason: Keep Vein Open Sodium Chloride (Sodium Chloride 0.9% 2.5 Ml Syringe) 2.5 ml FLUSH ASDIRECTED PRN PRN Reason: Keep Vein Open Sodium Chloride (Sodium Chloride 0.9% 20 Ml Sdv) 10 ml IV ASDIRECTED PRN PRN Reason: IV Use Sterile Water (Water For Irrigation,Sterile 1,000 Ml Container) 1,000 ml IRR ASDIRECTED PRN PRN Reason: delivery Terbutaline Sulfate (Terbutaline 1 Mg/Ml Sdv) 0.25 mg SUBCUT ASDIRECTED PRN PRN Reason: Tacysystole Assessment/Plan Comment:: This patient is 39 weeks she is para 2011 she is admitted for elective social induction
[2021-10-03] MEDS ORDERED: Ropivacaine HCl/PF 200 ML ONE (14:44)
--- NOTE | 2021-10-03 14:50 | PCM.PREANE ---
Preanesthetic Assessment - Anesthesia/Transfusion/Family Hx Anesthesia History: Prior Anesthesia Without Reaction Transfusion History: No Prior Transfusion(s) Intubation History: Unknown - Review of Systems General: No Symptoms Pulmonary: No Symptoms Cardiovascular: No Symptoms Gastrointestinal: No Symptoms Neurological: No Symptoms Other: Reports: None - Physical Assessment NPO Status Date: 10/03/21 NPO Status Time: 08:00 Vital Signs: Last Vital Signs Temp 97.3 F 10/03/21 01:02 Pulse 95 10/03/21 01:02 Resp 18 10/03/21 01:02 BP 119/71 10/03/21 01:02 Pulse Ox 99 10/03/21 01:02 Height: 5 ft 3 in Weight: 188 lb ASA Class: 2 Mental Status: Alert & Oriented x3 Airway Class: Mallampati = 1 Dentition: Reports: Normal Dentition ROM/Head Extension: Full Lungs: Clear to Auscultation, Normal Respiratory Effort Cardiovascular: Regular Rate, Regular Rhythm - Lab Values: Laboratory Last Values WBC 12.21 K/uL (4.0-11.0) H 10/03/21 00:49 RBC 4.03 M/uL (4.30-5.90) L 10/03/21 00:49 Hgb 8.7 g/dL (12.0-16.0) L 10/03/21 00:49 Hct 28.3 % (36.0-46.0) L 10/03/21 00:49 MCV 70.2 fL (80.0-98.0) L 10/03/21 00:49 MCH 21.6 pg (27.0-32.0) L 10/03/21 00:49 MCHC 30.7 g/dL (31.0-37.0) L 10/03/21 00:49 RDW Std Deviation 41.2 fl (28.0-62.0) 10/03/21 00:49 RDW Coeff of Shira 16 % (11.0-15.0) H 10/03/21 00:49 Plt Count 294 K/uL (150-400) 10/03/21 00:49 MPV 10.80 fL (7.40-12.00) 10/03/21 00:49 Nucleated RBC % 0.0 /100WBC 10/03/21 00:49 Nucleated RBCs # 0 K/uL 10/03/21 00:49 SARS-CoV-2 RNA (UMA) NEGATIVE (NEGATIVE) 10/03/21 00:40 Blood Type O POSITIVE 10/03/21 00:49 Antibody Screen NEGATIVE 10/03/21 00:49 - Allergies Allergies/Adverse Reactions: Allergies Allergy/AdvReac Type Severity Reaction Status Date / Time No Known Allergies Allergy Verified 08/28/21 01:12 - Acknowledgements Anesthesia Type Planned: Epidural Pt an Appropriate Candidate for the Planned Anesthesia: Yes Alternatives and Risks of Anesthesia Discussed w Pt/Guardian: Yes Pt/Guardian Understands and Agrees with Anesthesia Plan: Yes PreAnesthesia Questionnaire - Past Health History Medical/Surgical History: Denies Medical/Surgical History HEENT History: Reports: Impaired Vision Cardiovascular History: Reports: None Respiratory History: Reports: None Gastrointestinal History: Reports: None Genitourinary History: Reports: None 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 SAB x1 - 2019 Musculoskeletal History: Reports: Fracture Neurological History: Reports: Migraines Psychiatric History: Reports: Anxiety, Depression, Suicide Attempt Endocrine/Metabolic History: Reports: None Hematologic History: Reports: None Immunologic History: Reports: None Oncologic (Cancer) History: Reports: None Dermatologic History: Reports: None - Infectious Disease History Infectious Disease History: Reports: None - Past Surgical History Head Surgeries/Procedures: Reports: None HEENT Surgical History: Reports: None Other HEENT Surgeries/Procedures: Pt states had a "shattered pelvis" at approx age 10 after falling off dome style monkey bars, states only rcv'd stitches. Cardiovascular Surgical History: Reports: None Respiratory Surgical History: Reports: None GI Surgical History: Reports: None Female Surgical History: Reports: Other (See Below) Other Female Surgeries/Procedures: Vaginal stitches in childhood after falling on playground equipment. Endocrine Surgical History: Reports: None Neurological Surgical History: Reports: None Musculoskeletal Surgical History: Reports: None Other Musculoskeletal Surgeries/Procedures:: Pt states had a "shattered pelvis" at age 10 r/t falling off dome style monkey bars, states only rcv'd stitches. Dermatological Surgical History: Reports: None - SUBSTANCE USE Tobacco Use Status *Q: Never Tobacco User Tobacco Use Within Last Twelve Months: No Second Hand Smoke Exposure: No Recreational Drug Use History: No - HOME MEDS Home Medications: Home Meds Vits #93/Iron Fum/FA [ Formula Tablet] 1 each PO DAILY 03/25/18 [History] Ibuprofen [Motrin] 800 mg PO Q8H PRN #90 tablet 04/17/20 [Rx] metroNIDAZOLE [Flagyl] 500 mg PO BID 08/28/21 [History] - CURRENT (IN HOUSE) MEDS Current Meds: Current Medications Butorphanol Tartrate (Butorphanol 1 Mg/Ml Sdv) 1 mg IVPUSH Q1H PRN PRN Reason: Pain (severe 7-10) Carboprost Tromethamine (Carboprost Tromethamine 250 Mcg/1 Ml Amp) 250 mcg IM ASDIRECTED PRN PRN Reason: Post Hemorrhage Oxytocin/Sodium Chloride (Oxytocin 30 Unit In Ns 0.9% 500 Ml Premix) 30 unit in 500 mls @ 999 mls/hr IV TITRATE PARTHA Tranexamic Acid 1,000 mg/ (Sodium Chloride) 110 mls @ 660 mls/hr IV ONETIME PRN PRN Reason: Bleeding Oxytocin/Sodium Chloride (Oxytocin 30 Unit In Ns 0.9% 500 Ml Premix) 30 unit in 500 mls @ 2 mls/hr IV TITRATE PARTHA; Protocol Last Titration: 10/03/21 13:17 Dose: 4 munits/min, 4 mls/hr Documented by: Lactated Ringer's (Ringers, Lactated) 1,000 mls @ 150 mls/hr IV ASDIRECTED PARTHA Last Admin: 10/03/21 11:54 Dose: 150 mls/hr Documented by: Lidocaine HCl (Lidocaine 1% 50 Ml Mdv) 50 ml INJECT ONETIME PRN PRN Reason: Laceration repair Methylergonovine Maleate (Methylergonovine 0.2 Mg/1 Ml Amp) 0.2 mg IM ASDIRECTED PRN PRN Reason: Post Hemorrhage Misoprostol (Misoprostol 200 Mcg Tab) 200 mcg PO ONETIME PRN PRN Reason: Post Hemorrhage Misoprostol (Misoprostol 25 Mcg (1/4 Of 100 Mcg) Tab) 25 mcg VAG ONETIME PRN PRN Reason: Cervical Ripening Last Admin: 10/03/21 06:42 Dose: 25 mcg Documented by: Misoprostol (Misoprostol 25 Mcg (1/4 Of 100 Mcg) Tab) 25 mcg VAG Q4H PRN PRN Reason: Cervical Ripening Last Admin: 10/03/21 01:38 Dose: 25 mcg Documented by: Nalbuphine HCl (Nalbuphine 10 Mg/1 Ml Vial) 10 mg IVPUSH Q1H PRN PRN Reason: Pain (severe 7-10) Last Admin: 10/03/21 11:35 Dose: 10 mg Documented by: Sodium Chloride (Sodium Chloride 0.9% 10 Ml Syringe) 10 ml FLUSH ASDIRECTED PRN PRN Reason: Keep Vein Open Sodium Chloride (Sodium Chloride 0.9% 2.5 Ml Syringe) 2.5 ml FLUSH ASDIRECTED PRN PRN Reason: Keep Vein Open Sodium Chloride (Sodium Chloride 0.9% 20 Ml Sdv) 10 ml IV ASDIRECTED PRN PRN Reason: IV Use Sterile Water (Water For Irrigation,Sterile 1,000 Ml Container) 1,000 ml IRR ASDIRECTED PRN PRN Reason: delivery Terbutaline Sulfate (Terbutaline 1 Mg/Ml Sdv) 0.25 mg SUBCUT ASDIRECTED PRN PRN Reason: Tacysystole Discontinued Medications Ropivacaine (Naropin 0.2%) Confirm Administered Dose 200 mls @ as directed .ROUTE .STK-MED ONE Stop: 10/03/21 14:45 Misoprostol (Misoprostol 25 Mcg (1/4 Of 100 Mcg) Tab) 25 mcg PO ONETIME ONE Stop: 10/03/21 01:07 Last Admin: 10/03/21 01:37 Dose: 25 mcg Documented by: Misoprostol (Misoprostol 25 Mcg (1/4 Of 100 Mcg) Tab) 25 mcg PO ONETIME ONE Stop: 10/03/21 05:41 Last Admin: 10/03/21 06:42 Dose: 25 mcg Documented by:
[2021-10-03] MEDS ORDERED: ePHEDrine 50 MG/ML SDV IVPUSH PRN (14:52)
--- NOTE | 2021-10-03 14:52 | PCM.SN.2 ---
- Pre-Procedure Checklist Attending Provider Aware: Yes Chart Reviewed: Yes Consent Signed: Yes Labs Reviewed: Yes VS/FHR Reviewed: Yes Pt an Appropriate Candidate for the Planned Anesthesia: Yes Alternatives and Risks of Anesthesia Discussed w Pt/Guardian: Yes - Procedure Procedure Start Date: 10/03/21 Procedure Start Time: 14:[address]: Reports: Blood Pressure, Heart Rate, SPO2 Functional IV: Yes Safety Measures: Reports: Patient Identified, Procedure Verified, Site Verified, Procedure Time Out Patient Position: Reports: Sitting Prep: Reports: Alcohol x3, Betadine x3 Local Anesthetic: Reports: Intradermal Wheal w Lidocaine 1% Regional Placement Level: Reports: L2-3 Needle: Reports: 17 g Touhy Approach: Reports: Midline Technique: Reports: CLYDE Glass Syringe Parasthesia: Reports: None Fluid Obtained: Reports: None Test Dose Medication: Reports: Lidocaine 1.5% w Epinephrine 1:200,000 Test Dose Response: Reports: Negative Continuous Infusion Start Time: 14:45 Continuous Infusion Medication: 0.2% Naropin Continuous Infusion Rate: 16 Continuous Infusion PCS Bolus Option: 4 Continuous Infusion Lockout Dose (cc/hr): 28 Patient Position Post Placement: Reports: Supline/BYRON Post-procedure Pain Level: 2 VS and FHR Monitored in Unit Post Placement: Yes Procedure End Date: 10/03/21 Procedure End Time: 15:35
--- NOTE | 2021-10-03 14:53 | PCM.POSTAN ---
POST ANESTHESIA ASSESSMENT - MENTAL STATUS Mental Status: Alert, Oriented - VITAL SIGNS Vital Signs: Last Vital Signs Temp 97.3 F 10/03/21 01:02 Pulse 95 10/03/21 01:02 Resp 18 10/03/21 01:02 BP 119/71 10/03/21 01:02 Pulse Ox 99 10/03/21 01:02 - RESPIRATORY Respiratory Status: Respiratory Rate WNL, Airway Patent, O2 Saturation Stable - CARDIOVASCULAR CV Status: Pulse Rate WNL, Blood Pressure Stable - GASTROINTESTINAL GI Status: No Symptoms - POST OP HYDRATION Hydration Status: Adequate & Stable
[2021-10-03] MEDS ORDERED: Ropivacaine 0.2% 2MG/ML 200 ML Bag EPIDUR SCH (15:00)
[2021-10-03] MEDS: ePHEDrine 50 MG/ML SDV IVPUSH PRN ×2 (15:33→15:41)
[2021-10-03] MEDS ORDERED: Lanolin 100% Cream 7 GM Tube TOP PRN (16:45)
[2021-10-03] MEDS ORDERED: Witch Hazel Medicated Pads 40/Jar TOP PRN (16:45)
[2021-10-03] MEDS ORDERED: Bisacodyl 10 MG Supp RECTAL PRN (16:45)
[2021-10-03] MEDS ORDERED: Docusate Sodium 100 MG Cap PO PRN (16:45)
[2021-10-03] MEDS ORDERED: oxyCODONE 5 MG Tab PO PRN (16:45)
[2021-10-03] MEDS ORDERED: Ibuprofen 400 MG Tab PO PRN (16:45)
[2021-10-03] MEDS ORDERED: Benzocaine/Menthol 20%-0.5% Spray 78 GM Cannister TOP PRN (16:45)
[2021-10-03] MEDS ORDERED: Acetaminophen 500 MG Tab PO PRN (16:45)
[2021-10-03] MEDS: Ibuprofen 800 MG Tab PO PRN (18:15)
[2021-10-03] MEDS: Acetaminophen 500 MG Tab PO PRN (21:03)
[2021-10-04] MEDS: Ibuprofen 800 MG Tab PO PRN ×2 (01:49→17:41)
[2021-10-04] MEDS: Acetaminophen 500 MG Tab PO PRN ×3 (06:19→16:03)
--- NOTE | 2021-10-04 07:22 | PCM48HPAN ---
Post Anesthesia Note - EVALUATION WITHIN 48HRS OF ANESTHETIC Vital Signs in Normal Range: Yes Patient Participated in Evaluation: Yes Respiratory Function Stable: Yes Airway Patent: Yes Cardiovascular Function Stable: Yes Hydration Status Stable: Yes Pain Control Satisfactory: Yes Nausea and Vomiting Control Satisfactory: Yes Mental Status Recovered: Yes Vital Signs: Last Vital Signs Temp 97.2 F 10/04/21 05:30 Pulse 73 10/04/21 05:30 Resp 17 10/04/21 05:30 BP 123/72 10/04/21 05:30 Pulse Ox 97 10/04/21 05:30
--- NOTE | 2021-10-04 07:44 | OR ---
SURGEON: Ramsey Turner MD DATE OF PROCEDURE: 10/03/2021 Mrs. Ray is a 20-year-old patient. She is para 2-0-0-2, all of them delivered vaginally. The patient is 39 plus weeks. She is admitted for social induction. At the time of admission, she was 1 cm, 50, soft, vertex, and -3. Her GBS status was negative. heart rate was normal, so she was induced with Cytotec and Pitocin. She required two doses of Cytotec and then she progressed with 3 to 4, soft, vertex, and -3. I did an artificial rupture of the membranes with clear fluid on her at 11:30 in a.m. and after that, the patient needed a small dose of low-dose Pitocin and she started to contract regularly. At 5 cm, she had epidural anesthesia for labor analgesia and then she progressed to complete, complete, and she had normal spontaneous vaginal delivery. The fetus cried immediately. One nuchal cord was noted at the time of the delivery. The placenta delivered spontaneous, complete, and intact without any problem. Estimated blood loss was 300 to 350 mL. heart rate was category 1 through the entire process of labor. There was no complication in the labor and the delivery. There was no need for episiotomy. There was no labial, perineal, or vaginal laceration on this patient. There was no complication. MIKI / MOSHE /[id number]
--- NOTE | 2021-10-04 08:48 | PCM.PNPP ---
- General Info Date of Service: 10/04/21 Functional Status: Reports: Pain Controlled - Review of Systems General: Reports: No Symptoms HEENT: Reports: No Symptoms Pulmonary: Reports: No Symptoms Cardiovascular: Reports: No Symptoms Gastrointestinal: Reports: No Symptoms Genitourinary: Reports: No Symptoms Musculoskeletal: Reports: No Symptoms Skin: Reports: No Symptoms Neurological: Reports: No Symptoms Psychiatric: Reports: No Symptoms - General Info Date of Service: 10/04/21 - Patient Data Vital Signs - Most Recent: Last Vital Signs Temp 36.3 C 10/04/21 08:02 Pulse 71 10/04/21 08:02 Resp 16 10/04/21 08:02 BP 98/50 L 10/04/21 08:02 Pulse Ox 96 10/04/21 08:02 Weight - Most Recent: 85.275 kg Lab Results - Last 24 Hours: Laboratory Results - last 24 hr 10/04/21 Range/Units 06:10 Hgb 7.9 L (12.0-16.0) g/dL Hct 26.2 L (36.0-46.0) % Med Orders - Current: Current Medications Acetaminophen (Acetaminophen 500 Mg Tab) 500 mg PO Q4H PRN PRN Reason: Pain (mild 1-3) Acetaminophen (Acetaminophen 500 Mg Tab) 1,000 mg PO Q4H PRN PRN Reason: Pain (mild 1-3) Last Admin: 10/04/21 06:19 Dose: 1,000 mg Documented by: Benzocaine/Menthol (Benzocaine/Menthol 20%-0.5% [place] 78 Gm Cannister) 78 gm TOP ASDIRECTED PRN PRN Reason: Perineal Comfort Measure Last Admin: 10/03/21 18:14 Dose: 1 canister Documented by: Bisacodyl (Bisacodyl 10 Mg Supp) 10 mg RECTAL ONETIME PRN PRN Reason: Constipation Butorphanol Tartrate (Butorphanol 1 Mg/Ml Sdv) 1 mg IVPUSH Q1H PRN PRN Reason: Pain (severe 7-10) Carboprost Tromethamine (Carboprost Tromethamine 250 Mcg/1 Ml Amp) 250 mcg IM ASDIRECTED PRN PRN Reason: Post Hemorrhage Docusate Sodium (Docusate Sodium 100 Mg Cap) 100 mg PO Q12H PRN PRN Reason: Constipation Emollient Ointment (Lanolin 100% Cream 7 Gm Tube) 0 gm TOP ASDIRECTED PRN PRN Reason: Sore Nipples Ephedrine Sulfate (Ephedrine 50 Mg/Ml Sdv) 10 mg IVPUSH Q1M PRN PRN Reason: Hypotension Last Admin: 10/03/21 15:41 Dose: 10 mg Documented by: Ephedrine Sulfate (Ephedrine 50 Mg/Ml Sdv) 10 mg IVPUSH Q5M PRN PRN Reason: Hypotension Oxytocin/Sodium Chloride (Oxytocin 30 Unit In Ns 0.9% 500 Ml Premix) 30 unit in 500 mls @ 999 mls/hr IV TITRATE PARTHA Tranexamic Acid 1,000 mg/ (Sodium Chloride) 110 mls @ 660 mls/hr IV ONETIME PRN PRN Reason: Bleeding Oxytocin/Sodium Chloride (Oxytocin 30 Unit In Ns 0.9% 500 Ml Premix) 30 unit in 500 mls @ 2 mls/hr IV TITRATE PARTHA; Protocol Last Titration: 10/03/21 14:52 Dose: 8 munits/min, 8 mls/hr Documented by: Lactated Ringer's (Ringers, Lactated) 1,000 mls @ 150 mls/hr IV ASDIRECTED PARTHA Last Admin: 10/03/21 11:54 Dose: 150 mls/hr Documented by: Ibuprofen (Ibuprofen 400 Mg Tab) 400 mg PO Q4H PRN PRN Reason: Pain (mild 1-3) Ibuprofen (Ibuprofen 800 Mg Tab) 800 mg PO Q6H PRN PRN Reason: Cramping Last Admin: 10/04/21 01:49 Dose: 800 mg Documented by: Lidocaine HCl (Lidocaine 1% 50 Ml Mdv) 50 ml INJECT ONETIME PRN PRN Reason: Laceration repair Methylergonovine Maleate (Methylergonovine 0.2 Mg/1 Ml Amp) 0.2 mg IM ASDIRECTED PRN PRN Reason: Post Hemorrhage Miscellaneous Medication (Phenylephrine Hcl In 0.9% Nacl 1 Mg/10 Ml Syringe) 0.1 mg IVPUSH Q1M PRN PRN Reason: Hypotension Misoprostol (Misoprostol 200 Mcg Tab) 200 mcg PO ONETIME PRN PRN Reason: Post Hemorrhage Misoprostol (Misoprostol 25 Mcg (1/4 Of 100 Mcg) Tab) 25 mcg VAG ONETIME PRN PRN Reason: Cervical Ripening Last Admin: 10/03/21 06:42 Dose: 25 mcg Documented by: Misoprostol (Misoprostol 25 Mcg (1/4 Of 100 Mcg) Tab) 25 mcg VAG Q4H PRN PRN Reason: Cervical Ripening Last Admin: 10/03/21 01:38 Dose: 25 mcg Documented by: Nalbuphine HCl (Nalbuphine 10 Mg/1 Ml Vial) 10 mg IVPUSH Q1H PRN PRN Reason: Pain (severe 7-10) Last Admin: 10/03/21 11:35 Dose: 10 mg Documented by: Oxycodone HCl (Oxycodone 5 Mg Tab) 5 mg PO Q2H PRN PRN Reason: Pain (severe 7-10) Ropivacaine (Ropivacaine 0.2% 2mg/Ml 200 Ml Bag) 400 mg EPIDUR ASDIRECTED PARTHA Sodium Chloride (Sodium Chloride 0.9% 10 Ml Syringe) 10 ml FLUSH ASDIRECTED PRN PRN Reason: Keep Vein Open Sodium Chloride (Sodium Chloride 0.9% 2.5 Ml Syringe) 2.5 ml FLUSH ASDIRECTED PRN PRN Reason: Keep Vein Open Sodium Chloride (Sodium Chloride 0.9% 20 Ml Sdv) 10 ml IV ASDIRECTED PRN PRN Reason: IV Use Sterile Water (Water For Irrigation,Sterile 1,000 Ml Container) 1,000 ml IRR ASDIRECTED PRN PRN Reason: delivery Terbutaline Sulfate (Terbutaline 1 Mg/Ml Sdv) 0.25 mg SUBCUT ASDIRECTED PRN PRN Reason: Tacysystole Witch Zohra (Witch Zohra Medicated Pads 40/Jar) 1 pad TOP ASDIRECTED PRN PRN Reason: comfort care Discontinued Medications Ropivacaine (Naropin 0.2%) Confirm Administered Dose 200 mls @ as directed .ROUTE .STK-MED ONE Stop: 10/03/21 14:45 Misoprostol (Misoprostol 25 Mcg (1/4 Of 100 Mcg) Tab) 25 mcg PO ONETIME ONE Stop: 10/03/21 01:07 Last Admin: 10/03/21 01:37 Dose: 25 mcg Documented by: Misoprostol (Misoprostol 25 Mcg (1/4 Of 100 Mcg) Tab) 25 mcg PO ONETIME ONE Stop: 10/03/21 05:41 Last Admin: 10/03/21 06:42 Dose: 25 mcg Documented by: - Interaction Infant Disposition, : [place] in Room with Family Interaction: Holding Feeding: Attempted ; Nursed Fair/Poor Support Person: Significant Other - Recovery Exam Fundal Tone: Firm Fundal Level: At Umbilicus Fundal Placement: Midline Lochia Amount: Scant Lochia Color: Rubra/Red Perineum Description: Intact, Minimal Bruising/Swelling Urinary Elimination: Voided - Exam General: Alert, Oriented HEENT: Pupils Equal Neck: Supple Lungs: Clear to Auscultation, Normal Respiratory Effort Cardiovascular: Regular Rate, Regular Rhythm GI/Abdominal Exam: Normal Bowel Sounds, Soft, Non-Tender, No Organomegaly, No Distention, No Abnormal Bruit, No Mass, Pelvis Stable Extremities: Normal Inspection, Normal Range of Motion, Non-Tender, No Pedal Edema, Normal Capillary Refill Skin: Warm, Dry, Intact Wound/Incisions: Healing Well Neurological: No New Focal Deficit Psy/Mental Status: Alert, Normal Affect, Normal Mood - Problem List Review Problem List Initiated/Reviewed/Updated: Yes - My Orders Last 24 Hours: My Active Orders 10/03/21 Dinner Regular Diet [DIET] 10/03/21 16:45 Patient Status [ADT] Routine May Shower [RC] ASDIRECTED Up ad Maryana [RC] ASDIRECTED Vital Signs [RC] PER UNIT ROUTINE Acetaminophen [Tylenol Extra Strength] 1,000 mg PO Q4H PRN Acetaminophen [Tylenol Extra Strength] 500 mg PO Q4H PRN Benzocaine/Menthol [Dermoplast Pain Relief 20%-0.5% [place]] 78 gm TOP ASDIRECTED PRN Docusate Sodium [Colace] 100 mg PO Q12H PRN Ibuprofen [Motrin] 400 mg PO Q4H PRN Ibuprofen [Motrin] 800 mg PO Q6H PRN Lanolin [Lansinoh HPA] See Dose Instructions TOP ASDIRECTED PRN bisacodyL [Dulcolax] 10 mg RECTAL ONETIME PRN oxyCODONE 5 mg PO Q2H PRN witch Zohra [Tucks] 1 pad TOP ASDIRECTED PRN Assess Lochia [WOMSER] Per Unit Routine Assess Uterine Involution [WOMSER] Per Unit Routine Peripheral IV Discontinue [OM.PC] Routine - Assessment Assessment:: Normal spontaneous vaginal delivery she is doing well minimum vaginal bleeding minimum moderate pain she would be discharged home today - Plan Plan:: This patient is 39 weeks she is para 2012 she is admitted for elective social induction
[2021-10-04] MEDS ORDERED: Ondansetron 4 MG Tab PO PRN (11:59)
[2021-10-04 19:14] VITALS: BP 115/68; PULSE 78
== END 2021-10-04 20:50 | disposition home or self-care (01) | DRG 807 ==
LOC: MW.OBCHECK 00:16 → MW.OB 00:17 → MW.OBCHECK 01:01 → MW.OB 01:02 → OBSVTOIN 16:34 → MW.OB 21:00
PROVIDERS: ADMIT Obstetrics & Gynecology; ATTEND Obstetrics & Gynecology
PROC: 10E0XZZ Delivery of Products of Conception, External Approach (ICD-10-PCS; principal; 2021-10-03)
PROC: 3E0P7VZ Introduction of Hormone into Female Reproductive, Via Natural or Artificial Opening (ICD-10-PCS; 2021-10-03)
PROC: 3E033VJ Introduction of Other Hormone into Peripheral Vein, Percutaneous Approach (ICD-10-PCS; 2021-10-03)
PROC: 10907ZC Drainage of Amniotic Fluid, Therapeutic from Products of Conception, Via Natural or Artificial Opening (ICD-10-PCS; 2021-10-03)
PROC: 3E0R3BZ Introduction of Anesthetic Agent into Spinal Canal, Percutaneous Approach (ICD-10-PCS; 2021-10-03)
PROC: 00HU33Z Insertion of Infusion Device into Spinal Canal, Percutaneous Approach (ICD-10-PCS; 2021-10-03)
DX: O69.81X0 Labor and delivery complicated by cord around neck, without compression, not applicable or unspecified (principal); Z37.0 Single live birth; Z3A.39 39 weeks gestation of pregnancy; Z20.822 Contact with and (suspected) exposure to COVID-19
CPT/HCPCS: 36415; 51702; 59025; 59409; 85014; 85018; 85027; 86592; 86850; 86900; 86901; A9270-GY; J2300; J2590; J2795; J7120; U0002

== ENCOUNTER 2022-05-26 16:53 | Emergency (ER) | payer SELFPAY ==
[2022-05-26] MEDS ORDERED: Meclizine 25 MG Tab PO ONE (17:31)
[2022-05-26] MEDS ORDERED: Sodium Chloride 0.9% 1,000 ML IV ONE (17:31)
[2022-05-26 18:52] LABS: CARBON DIOXIDE,CO2 21.6 mmol/L (21.0-32.0); POTASSIUM,K 3.5 mmol/L (3.5-5.1)
[2022-05-26 19:38] VITALS: BP 109/61; PULSE 94
== END 2022-05-26 19:38 | disposition home or self-care (01) ==
LOC: MW.ED 16:53
DX: O99.892 Other specified diseases and conditions complicating childbirth (principal); R42 Dizziness and giddiness; Z3A.17 17 weeks gestation of pregnancy; Z79.899 Other long term (current) drug therapy; Z20.822 Contact with and (suspected) exposure to COVID-19
CPT/HCPCS: 36415; 80053; 81003; 83735; 84703; 85025; 87635; 93005; 96360; 99284; A9270; J7030; U0002

== ENCOUNTER 2022-10-17 21:13 | Inpatient (IN) | payer MEDICAID ==
[2022-10-17] MEDS ORDERED: Terbutaline 1 MG/ML SDV SUBCUT PRN (22:17)
[2022-10-17] MEDS ORDERED: Misoprostol 25 MCG (1/4 of 100 MCG) Tab VAG PRN ×2 (22:17)
[2022-10-17] MEDS ORDERED: Misoprostol 25 MCG (1/4 of 100 MCG) Tab PO PRN (22:29)
[2022-10-17] MEDS ORDERED: Oxytocin/0.9 % Sodium Chloride 30 UNIT/500 ML BAG IV SCH ×2 (22:30→22:45)
[2022-10-17] MEDS ORDERED: Sodium Chloride 0.9% 2.5 ML Syringe FLUSH PRN (22:32)
[2022-10-17] MEDS ORDERED: Sodium Chloride 0.9% 20 ML SDV IV PRN (22:32)
[2022-10-17] MEDS ORDERED: Methylergonovine 0.2 MG/1 ML Amp IM PRN (22:32)
[2022-10-17] MEDS ORDERED: Misoprostol 200 MCG Tab PO PRN (22:32)
[2022-10-17] MEDS ORDERED: Water For Irrigation,Sterile 1,000 ML Container IRR PRN (22:32)
[2022-10-17] MEDS ORDERED: Butorphanol 1 MG/ML SDV IVPUSH PRN (22:32)
[2022-10-17] MEDS ORDERED: Lidocaine 1% 50 ML MDV INJECT PRN (22:32)
[2022-10-17] MEDS ORDERED: Tranexamic Acid 1,000 MG in Sodium Chloride 0.9% 100 ML IV PRN (22:32)
[2022-10-17] MEDS ORDERED: Carboprost Tromethamine 250 MCG/1 ML Amp IM PRN (22:32)
[2022-10-17] MEDS ORDERED: Sodium Chloride 0.9% 10 ML Syringe FLUSH PRN (22:32)
[2022-10-18] MEDS ORDERED: diphenhydrAMINE 50 MG/ML SDV IVPUSH ONE (00:18)
[2022-10-18] MEDS ORDERED: Misoprostol 25 MCG (1/4 of 100 MCG) Tab VAG PRN (03:23)
[2022-10-18] MEDS ORDERED: Misoprostol 25 MCG (1/4 of 100 MCG) Tab PO PRN (03:28)
[2022-10-18] MEDS: Lactated Ringers 1,000 ML IV SCH ×2 (08:22→11:38)
[2022-10-18] MEDS ORDERED: Bupivacaine 0.5% 10 ML SDV ONE ×3 (11:21→14:42)
[2022-10-18] MEDS ORDERED: Ropivacaine/PF 400 MG/200 ML PCA ONE (11:21)
[2022-10-18] MEDS ORDERED: Phenylephrine HCl In 0.9% NaCl 1 MG/10 ML Vial IVPUSH PRN (11:59)
[2022-10-18] MEDS ORDERED: ePHEDrine 50 MG/ML SDV IVPUSH PRN ×2 (11:59)
[2022-10-18] MEDS ORDERED: Phenylephrine HCl In 0.9% NaCl 1 MG/10 ML Vial IVPUSH SCH (12:00)
[2022-10-18] MEDS ORDERED: Ropivacaine HCl/PF 400 MG in Premix Bag 1 BAG EPIDUR SCH (12:00)
[2022-10-18] MEDS ORDERED: Lidocaine 2% 5 ML SDV ONE ×2 (13:46→14:42)
[2022-10-18] MEDS ORDERED: Ondansetron 4 MG/2 ML SDV ONE (13:52)
[2022-10-18] MEDS ORDERED: fentaNYL 100 MCG/2 ML SDV ONE (13:54)
[2022-10-18] MEDS ORDERED: ceFAZolin 1 GM Vial ONE (13:54)
[2022-10-18] MEDS ORDERED: Morphine PF 10 MG/10 ML SDV ONE (13:55)
[2022-10-18] MEDS ORDERED: Ketorolac 30 MG/ML SDV ONE (13:56)
[2022-10-18] MEDS ORDERED: Dexamethasone 4 MG/ML 5 ML MDV ONE (13:56)
[2022-10-18] MEDS ORDERED: Midazolam 1 MG/ML 2 ML SDV ONE (14:05)
[2022-10-18] MEDS ORDERED: Lactated Ringers 1,000 ML IV SCH (14:45)
[2022-10-18] MEDS ORDERED: Oxytocin 10 Units/1 ML SDV IM PRN (14:45)
[2022-10-18] MEDS ORDERED: diphenhydrAMINE 50 MG/ML SDV IVPUSH PRN ×2 (14:45→16:04)
[2022-10-18] MEDS ORDERED: Tranexamic Acid 1,000 MG in Sodium Chloride 0.9% 100 ML IV PRN (14:45)
[2022-10-18] MEDS ORDERED: Misoprostol 200 MCG Tab RECTAL PRN (14:45)
[2022-10-18] MEDS ORDERED: Ondansetron 4 MG/2 ML SDV IVPUSH PRN ×3 (14:45→16:04)
[2022-10-18] MEDS ORDERED: Bisacodyl 10 MG Supp RECTAL PRN (14:45)
[2022-10-18] MEDS ORDERED: Methylergonovine 0.2 MG/1 ML Amp IM PRN (14:45)
[2022-10-18] MEDS ORDERED: Lanolin 100% Cream 7 GM Tube TOP PRN (14:45)
[2022-10-18] MEDS ORDERED: Acetaminophen/oxyCODONE 325-5 MG Tab PO PRN (16:04)
[2022-10-18] MEDS ORDERED: HYDROmorphone 2 MG/ML Syringe IVPUSH PRN (16:04)
[2022-10-18] MEDS ORDERED: Morphine 2 MG/ML SYRINGE IVPUSH PRN (16:04)
[2022-10-18] MEDS ORDERED: Naloxone 0.4 MG/ML SDV IVPUSH PRN (16:04)
[2022-10-18] MEDS ORDERED: fentaNYL 100 MCG/2 ML SDV IVPUSH PRN ×2 (16:04)
[2022-10-18] MEDS ORDERED: Metoclopramide 10 MG/2 ML SDV IVPUSH PRN (16:04)
[2022-10-18] MEDS ORDERED: Albuterol 0.083% 2.5 MG/3 ML Neb Soln NEB PRN (16:04)
[2022-10-18] MEDS: Ketorolac 30 MG/ML SDV IVPUSH SCH ×2 (17:07→23:07)
[2022-10-18] MEDS ORDERED: Ketorolac 30 MG/ML SDV IVPUSH SCH (20:00)
[2022-10-18] MEDS: Acetaminophen/oxyCODONE 325-5 MG Tab PO PRN (20:33)
[2022-10-18] MEDS: Docusate Sodium 100 MG Cap PO SCH (20:35)
[2022-10-18 20:51] LABS: CARBON DIOXIDE,CO2 25.3 mmol/L (21.0-32.0); POTASSIUM,K 3.8 mmol/L (3.5-5.1)
[2022-10-19] MEDS: Ketorolac 30 MG/ML SDV IVPUSH SCH ×3 (04:50→16:58)
[2022-10-19] MEDS: Docusate Sodium 100 MG Cap PO SCH ×2 (11:09→21:24)
[2022-10-19] MEDS: Acetaminophen/oxyCODONE 325-5 MG Tab PO PRN (21:53)
[2022-10-20] MEDS: Ibuprofen 800 MG Tab PO PRN ×2 (01:21→14:32)
[2022-10-20] MEDS: Acetaminophen/oxyCODONE 325-5 MG Tab PO PRN ×3 (04:18→14:33)
[2022-10-20] MEDS: Docusate Sodium 100 MG Cap PO SCH (08:49)
[2022-10-20] MEDS ORDERED: Measles, Mumps & Rubella Vaccine 0.5 ML SDV SUBCUT ONE (10:32)
[2022-10-20 16:05] VITALS: BP 125/86; PULSE 90
== END 2022-10-20 17:15 | disposition home or self-care (01) | DRG 788 ==
LOC: MW.OBCHECK 21:13 → MW.OB 21:14 → MW.OBCHECK 21:30 → OBSVTOIN 10-18 13:24 → MW.OB 10-18 21:10
PROVIDERS: ADMIT Obstetrics & Gynecology; ATTEND Obstetrics & Gynecology
PROC: 10D00Z1 Extraction of Products of Conception, Low, Open Approach (ICD-10-PCS; principal; 2022-10-18)
PROC: 10E0XZZ Delivery of Products of Conception, External Approach (ICD-10-PCS; 2022-10-18)
PROC: 3E0P7VZ Introduction of Hormone into Female Reproductive, Via Natural or Artificial Opening (ICD-10-PCS; 2022-10-18)
PROC: 3E033VJ Introduction of Other Hormone into Peripheral Vein, Percutaneous Approach (ICD-10-PCS; 2022-10-18)
PROC: 3E0R3BZ Introduction of Anesthetic Agent into Spinal Canal, Percutaneous Approach (ICD-10-PCS; 2022-10-18)
PROC: 00HU33Z Insertion of Infusion Device into Spinal Canal, Percutaneous Approach (ICD-10-PCS; 2022-10-18)
PROC: 3E0134Z Introduction of Serum, Toxoid and Vaccine into Subcutaneous Tissue, Percutaneous Approach (ICD-10-PCS; 2022-10-20)
DX: O30.043 Twin pregnancy, dichorionic/diamniotic, third trimester (principal); Z37.2 Twins, both liveborn; Z3A.38 38 weeks gestation of pregnancy; Z23 Encounter for immunization
CPT/HCPCS: 36415; 36430; 51702; 59025; 59409; 74018; 74018-26; 80053; 85014; 85018; 85027; 85384; 85610; 86592; 86850; 86900; 86901; 86920; 90471; 90707; A9270-GY; J0595; J0690; J1100; J1200; J1885; J2250; J2274; J2405; J2590; J2795; J3010; J3490; J7120; P9016

== ENCOUNTER 2024-01-28 08:48 | Emergency (ER) | payer SELFPAY ==
[2024-01-28 10:19] LABS: BASOPHILS ABSOLUTE AUTO 0.07 K/uL (0.00-0.20); BASOPHILS PERCENT AUTO 0.8 % (0.0-1.0); EOSINOPHILS ABSOLUTE AUTO 0.24 K/uL (0.00-0.45); EOSINOPHILS PERCENT AUTO 2.8 % (0.0-6.0); HEMATOCRIT 40.3 % (37.0-47.0); HEMOGLOBIN 12.7 g/dL (12.0-16.0); IMMATURE GRAN ABSOLUTE AUTO 0.03 K/uL (0.00-0.05); IMMATURE GRAN PERCENT AUTO 0.3 % (0.0-0.4); LYMPHOCYTES PERCENT AUTO 24.1 % (24.0-44.0); MEAN CORPUSCULAR HGB CONC 31.5 g/dL (32.0-36.0); MEAN CORPUSCULAR VOLUME 79.5 fL (83.0-99.0); MEAN PLATELET VOLUME 11.5 fL (9.4-12.3); MONOCYTES ABSOLUTE AUTO 0.46 K/uL (0.00-0.80); MONOCYTES PERCENT AUTO 5.3 % (0.0-8.0); NEUTROPHILS PERCENT AUTO 66.7 % (41.0-71.0); PLATELET COUNT,PLT 286 K/uL (150-400); RED BLOOD CELL COUNT 5.07 M/uL (4.10-5.30)
[2024-01-28] MEDS: Ketorolac 60 MG/2 ML SDV IM ONE (10:21)
[2024-01-28 10:31] LABS: A/G RATIO 0.9 (0.9-1.6); ALANINE AMINOTRANSFERASE,ALT 35 IU/L (14-63); ALBUMIN 3.8 g/dL (3.4-5.0); ALKALINE PHOSPHATASE 83 U/L (46-116); ASPARTATE AMNIOTRANSFERASE,AST 18 IU/L (15-37); BILIRUBIN TOTAL 0.2 mg/dL (0.2-1.0); BLOOD UREA NITROGEN,BUN 10 mg/dL (7.0-18.0); CALCIUM 8.6 mg/dL (8.5-10.1); CARBON DIOXIDE,CO2 25.7 mmol/L (21.0-32.0); CHLORIDE,CL 105 mmol/L (98-107); CREATININE 0.7 mg/dL (0.6-1.0); EST CRCL DRUG DOSING (CG) 101.63 mL/min; GLUCOSE RANDOM 97 mg/dL (74-106); POTASSIUM,K 3.6 mmol/L (3.5-5.1); SODIUM,NA 140 mmol/L (136-145)
[2024-01-28 10:34] LABS: ESTIMATED GFR 123 mL/min (>60)
[2024-01-28 10:47] LABS: CORONAVIRUS COVID-19 NAA NEGATIVE (NEGATIVE); INFLUENZA A NAA NEGATIVE (NEGATIVE); INFLUENZA B NAA NEGATIVE (NEGATIVE)
[2024-01-28 10:53] VITALS: BP 106/57; PULSE 69
== END 2024-01-28 11:11 | disposition home or self-care (01) ==
LOC: MW.ED 08:48
DX: J40 Bronchitis, not specified as acute or chronic (principal); Z79.899 Other long term (current) drug therapy
CPT/HCPCS: 0240U; 36415; 71045; 80053; 84484; 85025; 93005; 96372; 99285; J1885; 93010; 99283

== ENCOUNTER 2024-06-24 02:49 | Emergency (ER) | payer SELFPAY ==
[2024-06-24 03:01] VITALS: BP 125/61; PULSE 88
== END 2024-06-24 03:14 | disposition home or self-care (01) ==
LOC: MW.ED 02:49
DX: S39.012A Strain of muscle, fascia and tendon of lower back, initial encounter (principal); Z79.899 Other long term (current) drug therapy; X58.XXXA Exposure to other specified factors, initial encounter
CPT/HCPCS: 99283

== ENCOUNTER 2024-07-04 21:21 | Emergency (ER) | payer SELFPAY ==
[2024-07-04 22:15] LABS: APPEARANCE,URINE SLT CLOUDY; BILIRUBIN,URINE NEGATIVE (NEGATIVE); COLOR,URINE YELLOW; GLUCOSE,URINE NEGATIVE (NEGATIVE); KETONES,URINE >=80 mg/dL (NEGATIVE); LEUKOCYTE ESTERASE,URINE MODERATE (NEGATIVE); NITRITE,URINE NEGATIVE (NEGATIVE); OCCULT BLOOD,URINE TRACE-INTACT (NEGATIVE); PROTEIN,URINE NEGATIVE (NEGATIVE)
[2024-07-04] MEDS: Acetaminophen 500 MG Tab PO ONE (22:31)
[2024-07-04] MEDS: Sodium Chloride 0.9% 10 ML Syringe FLUSH PRN (22:32)
[2024-07-04] MEDS: Ketorolac 30 MG/ML SDV IVPUSH ONE (22:32)
[2024-07-04] MEDS: Sodium Chloride 0.9% 2.5 ML Syringe FLUSH PRN (22:32)
[2024-07-04] MEDS: Sodium Chloride 0.9% 1,000 ML IV ONE (22:32)
[2024-07-04 22:36] LABS: BACTERIA,URINE RARE (NEGATIVE); EPITHELIAL CELLS,URINE FEW (NONE-FEW); RBC,URINE 0-2 (0-2/HPF); WBC,URINE 25-35 (0-5/HPF)
[2024-07-04 22:44] LABS: BASOPHILS ABSOLUTE AUTO 0.05 K/uL (0.00-0.20); BASOPHILS PERCENT AUTO 0.4 % (0.0-1.0); EOSINOPHILS ABSOLUTE AUTO 0.04 K/uL (0.00-0.45); EOSINOPHILS PERCENT AUTO 0.3 % (0.0-6.0); HEMATOCRIT 37.2 % (37.0-47.0); HEMOGLOBIN 12.2 g/dL (12.0-16.0); IMMATURE GRAN ABSOLUTE AUTO 0.04 K/uL (0.00-0.05); IMMATURE GRAN PERCENT AUTO 0.3 % (0.0-0.4); LYMPHOCYTES ABSOLUTE AUTO 2.04 K/uL (1.00-4.80); MEAN CORPUSCULAR HEMOGLOBIN 25.8 pg (28.0-32.0); MEAN CORPUSCULAR HGB CONC 32.8 g/dL (32.0-36.0); MEAN CORPUSCULAR VOLUME 78.8 fL (83.0-99.0); MEAN PLATELET VOLUME 10.9 fL (9.4-12.3); MONOCYTES ABSOLUTE AUTO 0.91 K/uL (0.00-0.80); MONOCYTES PERCENT AUTO 7.1 % (0.0-8.0); NEUTROPHILS ABSOLUTE AUTO 9.67 K/uL (1.80-7.70); NEUTROPHILS PERCENT AUTO 75.9 % (41.0-71.0); PLATELET COUNT,PLT 265 K/uL (150-400); RED BLOOD CELL COUNT 4.72 M/uL (4.10-5.30); WHITE BLOOD CELL COUNT,WBC 12.75 K/uL (3.9-11.3)
[2024-07-04 23:12] LABS: A/G RATIO 0.9 (0.9-1.6); ALBUMIN 3.7 g/dL (3.4-5.0); BILIRUBIN TOTAL 0.7 mg/dL (0.2-1.0); CALCIUM 8.7 mg/dL (8.5-10.1); CARBON DIOXIDE,CO2 23.3 mmol/L (21.0-32.0); CREATININE 0.6 mg/dL (0.6-1.0); EST CRCL DRUG DOSING (CG) 118.57 mL/min; POTASSIUM,K 3.6 mmol/L (3.5-5.1); PROTEIN TOTAL,TP 7.6 g/dL (6.4-8.2)
[2024-07-05] MEDS: cefTRIAXone 1 GM in Sodium Chloride 0.9% 50 ML IV ONE (00:13)
[2024-07-05 00:18] VITALS: BP 105/47; PULSE 90
== END 2024-07-05 00:41 | disposition home or self-care (01) ==
LOC: MW.ED 21:21
DX: N12 Tubulo-interstitial nephritis, not specified as acute or chronic (principal); Z79.899 Other long term (current) drug therapy
CPT/HCPCS: 36415; 80053; 81001; 81025; 85025; 87086; 87635; 96361; 96365; 96375; 99284; A9270; J0696; J1885; J3490; J7030; U0002

== ENCOUNTER 2024-07-13 04:20 | Emergency (ER) | payer SELFPAY ==
[2024-07-13 04:46] LABS: BASOPHILS ABSOLUTE AUTO 0.06 K/uL (0.00-0.20); BASOPHILS PERCENT AUTO 0.5 % (0.0-1.0); EOSINOPHILS PERCENT AUTO 3.5 % (0.0-6.0); HEMATOCRIT 40.6 % (37.0-47.0); HEMOGLOBIN 13.1 g/dL (12.0-16.0); IMMATURE GRAN ABSOLUTE AUTO 0.05 K/uL (0.00-0.05); IMMATURE GRAN PERCENT AUTO 0.4 % (0.0-0.4); LYMPHOCYTES ABSOLUTE AUTO 2.99 K/uL (1.00-4.80); MEAN CORPUSCULAR HEMOGLOBIN 25.7 pg (28.0-32.0); MEAN CORPUSCULAR HGB CONC 32.3 g/dL (32.0-36.0); MEAN CORPUSCULAR VOLUME 79.6 fL (83.0-99.0); MEAN PLATELET VOLUME 10.3 fL (9.4-12.3); MONOCYTES ABSOLUTE AUTO 0.58 K/uL (0.00-0.80); NEUTROPHILS ABSOLUTE AUTO 7.41 K/uL (1.80-7.70); NEUTROPHILS PERCENT AUTO 64.6 % (41.0-71.0); PLATELET COUNT,PLT 372 K/uL (150-400); WHITE BLOOD CELL COUNT,WBC 11.49 K/uL (3.9-11.3)
[2024-07-13 05:16] LABS: A/G RATIO 0.9 (0.9-1.6); ALANINE AMINOTRANSFERASE,ALT 23 IU/L (14-63); ALBUMIN 3.7 g/dL (3.4-5.0); ALKALINE PHOSPHATASE 76 U/L (46-116); ASPARTATE AMNIOTRANSFERASE,AST 15 IU/L (15-37); BILIRUBIN TOTAL 0.2 mg/dL (0.2-1.0); BLOOD UREA NITROGEN,BUN 16 mg/dL (7.0-18.0); CALCIUM 8.6 mg/dL (8.5-10.1); CARBON DIOXIDE,CO2 27.3 mmol/L (21.0-32.0); CHLORIDE,CL 100 mmol/L (98-107); EST CRCL DRUG DOSING (CG) 71.14 mL/min; GLUCOSE RANDOM 163 mg/dL (74-106); LIPASE 48 U/L (16-77); POTASSIUM,K 3.3 mmol/L (3.5-5.1); PRO B-TYPE NATRIUR PEPT,BNPPRO 5 pg/mL (0-125); SODIUM,NA 137 mmol/L (136-145)
[2024-07-13 05:19] LABS: ESTIMATED GFR 80 mL/min (>60)
[2024-07-13] MEDS: Dexamethasone 4 MG Tab PO ONE (05:53)
[2024-07-13 06:11] VITALS: BP 100/60; PULSE 79
== END 2024-07-13 06:10 | disposition home or self-care (01) ==
LOC: MW.ED 04:20
DX: R07.9 Chest pain, unspecified (principal)
CPT/HCPCS: 36415; 71045; 80053; 83690; 83880; 84484; 84703; 85025; 93005; 99285; J8540; 93010

== ENCOUNTER 2024-12-01 02:58 | Emergency (ER) | payer SELFPAY ==
[2024-12-01] MEDS: Sodium Chloride 0.9% 1,000 ML IV SCH (03:45)
[2024-12-01] MEDS: Ketorolac 30 MG/ML SDV IVPUSH ONE (03:45)
[2024-12-01] MEDS: Ondansetron 4 MG/2 ML SDV IVPUSH ONE (03:45)
[2024-12-01 03:46] LABS: BASOPHILS ABSOLUTE AUTO 0.02 K/uL (0.00-0.20); BASOPHILS PERCENT AUTO 0.2 % (0.0-1.0); HEMATOCRIT 40.4 % (37.0-47.0); IMMATURE GRAN ABSOLUTE AUTO 0.04 K/uL (0.00-0.05); IMMATURE GRAN PERCENT AUTO 0.5 % (0.0-0.4); LYMPHOCYTES ABSOLUTE AUTO 0.64 K/uL (1.00-4.80); LYMPHOCYTES PERCENT AUTO 7.3 % (24.0-44.0); MEAN CORPUSCULAR HEMOGLOBIN 25.9 pg (28.0-32.0); MEAN CORPUSCULAR HGB CONC 32.2 g/dL (32.0-36.0); MEAN CORPUSCULAR VOLUME 80.5 fL (83.0-99.0); MEAN PLATELET VOLUME 10.8 fL (9.4-12.3); MONOCYTES ABSOLUTE AUTO 0.71 K/uL (0.00-0.80); MONOCYTES PERCENT AUTO 8.1 % (0.0-8.0); NEUTROPHILS ABSOLUTE AUTO 7.37 K/uL (1.80-7.70); NEUTROPHILS PERCENT AUTO 83.9 % (41.0-71.0); PLATELET COUNT,PLT 239 K/uL (150-400); RED BLOOD CELL COUNT 5.02 M/uL (4.10-5.30); WHITE BLOOD CELL COUNT,WBC 8.78 K/uL (3.9-11.3)
[2024-12-01 04:16] LABS: A/G RATIO 0.8 (0.9-1.6); ALANINE AMINOTRANSFERASE,ALT 16 IU/L (14-63); ALBUMIN 3.8 g/dL (3.4-5.0); ALKALINE PHOSPHATASE 66 U/L (46-116); ASPARTATE AMNIOTRANSFERASE,AST 27 IU/L (15-37); BILIRUBIN TOTAL 0.4 mg/dL (0.2-1.0); BLOOD UREA NITROGEN,BUN 12 mg/dL (7.0-18.0); CALCIUM 8.3 mg/dL (8.5-10.1); CARBON DIOXIDE,CO2 21.4 mmol/L (21.0-32.0); CHLORIDE,CL 100 mmol/L (98-107); CREATININE 0.7 mg/dL (0.6-1.0); EST CRCL DRUG DOSING (CG) 100.74 mL/min; GLUCOSE RANDOM 128 mg/dL (74-106); POTASSIUM,K 3.4 mmol/L (3.5-5.1); PROTEIN TOTAL,TP 8.4 g/dL (6.4-8.2); SODIUM,NA 133 mmol/L (136-145)
[2024-12-01 04:18] LABS: ESTIMATED GFR 122 mL/min (>60)
[2024-12-01 04:42] LABS: LACTIC ACID 0.4 mmol/L (0.4-2.0)
[2024-12-01 05:09] VITALS: BP 96/65; PULSE 89
== END 2024-12-01 05:07 | disposition home or self-care (01) ==
LOC: MW.ED 02:58
DX: J10.1 Influenza due to other identified influenza virus with other respiratory manifestations (principal); Z79.899 Other long term (current) drug therapy
CPT/HCPCS: 36415; 71046; 80053; 83605; 84484; 84702; 85025; 87040; 87428; 87651; 93005; 96361; 96374; 96375; 99285; J1885; J2405; J7030

== ENCOUNTER 2025-01-03 06:13 | Emergency (ER) | payer SELFPAY ==
[2025-01-03 06:25] VITALS: BP 120/60; PULSE 92
[2025-01-03 06:50] LABS: APPEARANCE,URINE CLEAR; BILIRUBIN,URINE NEGATIVE (NEGATIVE); COLOR,URINE YELLOW; GLUCOSE,URINE NEGATIVE (NEGATIVE); KETONES,URINE TRACE mg/dL (NEGATIVE); LEUKOCYTE ESTERASE,URINE NEGATIVE (NEGATIVE); NITRITE,URINE NEGATIVE (NEGATIVE); OCCULT BLOOD,URINE TRACE-LYSED (NEGATIVE); PROTEIN,URINE NEGATIVE (NEGATIVE); UROBILINOGEN,URINE 0.2 EU/dL (<2.0)
[2025-01-03 06:59] LABS: BACTERIA,URINE RARE (NEGATIVE); EPITHELIAL CELLS,URINE FEW (NONE-FEW); RBC,URINE 0-2 (0-2/HPF); WBC,URINE 0-2 (0-5/HPF)
[2025-01-03 07:00] LABS: MUCUS,URINE LIGHT (NONE-MOD)
[2025-01-03] MEDS: Ketorolac 30 MG/ML SDV IVPUSH ONE (07:22)
[2025-01-03] MEDS: Sodium Chloride 0.9% 10 ML Syringe FLUSH PRN (07:23)
[2025-01-03] MEDS: Sodium Chloride 0.9% 2.5 ML Syringe FLUSH PRN (07:23)
[2025-01-03 08:26] LABS: BASOPHILS ABSOLUTE AUTO 0.06 K/uL (0.00-0.20); BASOPHILS PERCENT AUTO 0.7 % (0.0-1.0); EOSINOPHILS ABSOLUTE AUTO 0.22 K/uL (0.00-0.45); EOSINOPHILS PERCENT AUTO 2.4 % (0.0-6.0); HEMATOCRIT 37.3 % (37.0-47.0); IMMATURE GRAN ABSOLUTE AUTO 0.04 K/uL (0.00-0.05); IMMATURE GRAN PERCENT AUTO 0.4 % (0.0-0.4); LYMPHOCYTES ABSOLUTE AUTO 2.16 K/uL (1.00-4.80); LYMPHOCYTES PERCENT AUTO 23.6 % (24.0-44.0); MEAN CORPUSCULAR HEMOGLOBIN 26.1 pg (28.0-32.0); MEAN CORPUSCULAR HGB CONC 32.2 g/dL (32.0-36.0); MEAN CORPUSCULAR VOLUME 81.1 fL (83.0-99.0); MEAN PLATELET VOLUME 10.2 fL (9.4-12.3); MONOCYTES ABSOLUTE AUTO 0.52 K/uL (0.00-0.80); MONOCYTES PERCENT AUTO 5.7 % (0.0-8.0); NEUTROPHILS ABSOLUTE AUTO 6.17 K/uL (1.80-7.70); NEUTROPHILS PERCENT AUTO 67.2 % (41.0-71.0); PLATELET COUNT,PLT 279 K/uL (150-400); WHITE BLOOD CELL COUNT,WBC 9.17 K/uL (3.9-11.3)
[2025-01-03] MEDS: Iopamidol 755 MG/ML 500 ML Multipack Bottle IVPUSH STA (08:39)
[2025-01-03 08:50] LABS: A/G RATIO 0.9 (0.9-1.6); ALBUMIN 3.6 g/dL (3.4-5.0); BILIRUBIN TOTAL 0.4 mg/dL (0.2-1.0); CALCIUM 8.5 mg/dL (8.5-10.1); CARBON DIOXIDE,CO2 27.4 mmol/L (21.0-32.0); CREATININE 0.7 mg/dL (0.6-1.0); EST CRCL DRUG DOSING (CG) 100.74 mL/min; POTASSIUM,K 4.2 mmol/L (3.5-5.1); PROTEIN TOTAL,TP 7.7 g/dL (6.4-8.2)
[2025-01-03] MEDS: Acetaminophen 325 MG Tab PO ONE (09:19)
== END 2025-01-03 09:30 | disposition home or self-care (01) ==
LOC: MW.ED 06:13
DX: R10.31 Right lower quadrant pain (principal); Z79.899 Other long term (current) drug therapy
CPT/HCPCS: 36415; 74177; 76830; 80053; 81001; 81025; 83690; 85025; 96374; 99284; A9270; J1885; Q9967

== ENCOUNTER 2025-05-23 01:03 | Emergency (ER) | payer MEDICAID ==
[2025-05-23 01:26] LABS: BASOPHILS ABSOLUTE AUTO 0.08 K/uL (0.00-0.20); BASOPHILS PERCENT AUTO 0.7 % (0.0-1.0); EOSINOPHILS ABSOLUTE AUTO 0.38 K/uL (0.00-0.45); EOSINOPHILS PERCENT AUTO 3.2 % (0.0-6.0); IMMATURE GRAN ABSOLUTE AUTO 0.03 K/uL (0.00-0.05); IMMATURE GRAN PERCENT AUTO 0.3 % (0.0-0.4); LYMPHOCYTES ABSOLUTE AUTO 3.25 K/uL (1.00-4.80); LYMPHOCYTES PERCENT AUTO 27.4 % (24.0-44.0); MEAN PLATELET VOLUME 10.8 fL (9.4-12.3); MONOCYTES ABSOLUTE AUTO 0.60 K/uL (0.00-0.80); MONOCYTES PERCENT AUTO 5.1 % (0.0-8.0); NEUTROPHILS ABSOLUTE AUTO 7.52 K/uL (1.80-7.70); NEUTROPHILS PERCENT AUTO 63.3 % (41.0-71.0); NRBC ABSOLUTE 0.00 K/uL (0.00-0.02); NRBC PERCENT 0.0 /100WBC (0.0-0.2); PLATELET COUNT,PLT 278 K/uL (150-400); RED BLOOD CELL COUNT 4.70 M/uL (4.10-5.30); WHITE BLOOD CELL COUNT,WBC 11.86 K/uL (3.9-11.3)
[2025-05-23] MEDS: Ketorolac 30 MG/ML SDV IVPUSH ONE (01:29)
[2025-05-23] MEDS: Ondansetron 4 MG/2 ML SDV IVPUSH ONE (01:29)
[2025-05-23 01:37] LABS: APPEARANCE,URINE CLEAR; GLUCOSE,URINE NEGATIVE (NEGATIVE); OCCULT BLOOD,URINE NEGATIVE (NEGATIVE)
[2025-05-23 01:49] LABS: A/G RATIO 1.0 (0.9-1.6); ALANINE AMINOTRANSFERASE,ALT 23.0 IU/L (14-63); ASPARTATE AMNIOTRANSFERASE,AST 17.0 IU/L (15-37); BILIRUBIN TOTAL 0.2 mg/dL (0.2-1.0); BLOOD UREA NITROGEN,BUN 14.0 mg/dL (7.0-18.0); CARBON DIOXIDE,CO2 27.5 mmol/L (21.0-32.0); CHLORIDE,CL 102.0 mmol/L (98-107); CREATININE 0.9 mg/dL (0.6-1.0); EST CRCL DRUG DOSING (CG) 78.36 mL/min; GLUCOSE RANDOM 100.0 mg/dL (74-106); POTASSIUM,K 3.6 mmol/L (3.5-5.1); PROTEIN TOTAL,TP 8.0 g/dL (6.4-8.2); SODIUM,NA 140.0 mmol/L (136-145)
[2025-05-23 01:50] LABS: ESTIMATED GFR 90.0 mL/min (>60)
[2025-05-23] MEDS: Iopamidol 755 Mg/ML 100 ML Bottle IVPUSH ONE (01:53)
[2025-05-23] MEDS: droPERidol 2.5 MG/ML SDV IVPUSH ONE (02:19)
[2025-05-23 04:16] VITALS: BP 97/60; PULSE 74
== END 2025-05-23 04:16 | disposition home or self-care (01) ==
LOC: MW.ED 01:03
DX: K59.00 Constipation, unspecified (principal); R11.0 Nausea; Z79.899 Other long term (current) drug therapy; Z98.51 Tubal ligation status
CPT/HCPCS: 36415; 74177; 76830; 80053; 81003; 83690; 84703; 85025; 96361; 96374; 96375; 99284; A9270; J1790; J1885; J2270; J2405; J7030; Q9967

== ENCOUNTER 2025-10-20 12:24 | Emergency (ER) | payer MEDICAID ==
[2025-10-20] MEDS: Ketorolac 30 MG/ML SDV IVPUSH ONE (17:30)
[2025-10-20] MEDS: diphenhydrAMINE 50 MG/ML SDV IVPUSH ONE (17:30)
[2025-10-20 18:45] LABS: BASOPHILS ABSOLUTE AUTO 0.08 K/uL (0.00-0.20); BASOPHILS PERCENT AUTO 0.7 % (0.0-1.0); EOSINOPHILS ABSOLUTE AUTO 0.28 K/uL (0.00-0.45); EOSINOPHILS PERCENT AUTO 2.6 % (0.0-6.0); IMMATURE GRAN ABSOLUTE AUTO 0.06 K/uL (0.00-0.05); IMMATURE GRAN PERCENT AUTO 0.6 % (0.0-0.4); LYMPHOCYTES ABSOLUTE AUTO 2.49 K/uL (1.00-4.80); LYMPHOCYTES PERCENT AUTO 22.9 % (24.0-44.0); MEAN PLATELET VOLUME 11.0 fL (9.4-12.3); MONOCYTES ABSOLUTE AUTO 0.56 K/uL (0.00-0.80); MONOCYTES PERCENT AUTO 5.1 % (0.0-8.0); NEUTROPHILS ABSOLUTE AUTO 7.41 K/uL (1.80-7.70); NEUTROPHILS PERCENT AUTO 68.1 % (41.0-71.0); NRBC ABSOLUTE 0.00 K/uL (0.00-0.02); NRBC PERCENT 0.0 /100WBC (0.0-0.2); PLATELET COUNT,PLT 267 K/uL (150-400); RED BLOOD CELL COUNT 4.95 M/uL (4.10-5.30); WHITE BLOOD CELL COUNT,WBC 10.88 K/uL (3.9-11.3)
[2025-10-20 18:50] LABS: BLOOD UREA NITROGEN,BUN 11.0 mg/dL (7.0-18.0); CARBON DIOXIDE,CO2 26.2 mmol/L (21.0-32.0); CHLORIDE,CL 103.0 mmol/L (98-107); CREATININE 0.6 mg/dL (0.6-1.0); EST CRCL DRUG DOSING (CG) 117.54 mL/min; GLUCOSE RANDOM 79.0 mg/dL (74-106); POTASSIUM,K 3.6 mmol/L (3.5-5.1); SODIUM,NA 141.0 mmol/L (136-145)
[2025-10-20 18:58] LABS: ESTIMATED GFR 127.0 mL/min (>60)
[2025-10-20 19:20] VITALS: BP 102/60; PULSE 82
== END 2025-10-20 20:08 | disposition home or self-care (01) ==
LOC: MW.ED 12:24
DX: G43.909 Migraine, unspecified, not intractable, without status migrainosus (principal); Z79.899 Other long term (current) drug therapy
CPT/HCPCS: 36415; 80048; 81025; 83735; 85025; 96361; 96374; 96375; 99283; A9270; J1200; J1885; J2765; J2919; J7040; 99284